=== PATIENT | female | born 1945 | race Caucasian/White ===

== ENCOUNTER 2020-06-07 11:10 | Inpatient (IN) | payer MEDICARE, SELFPAY ==
[2020-06-07] VITALS (8 sets, daily range): BP systolic 112–148; BP diastolic 52–78; PULSE 80–92; RESP 14–18; TEMP 36.4–36.9; O2SAT 93–96; BMI 35.9
--- NOTE | ~2020-06-07 | MR_ITS ---
EXAMINATION: MR BRAIN WITHOUT CONTRAST CLINICAL INFORMATION: Acute stroke. Left-sided tingling. COMPARISON: CTA head and neck from 06/07/2020. TECHNIQUE: MRI of the brain was obtained using routine sequences without contrast. FINDINGS: Restricted diffusion associated with a small acute infarct within the right thalamus. No additional restricted diffusion. No evidence of acute or chronic hemorrhagic products on heme-sensitive imaging. Scattered periventricular, deep white matter, and brainstem T2 FLAIR hyperintensities consistent with moderate underlying microangiopathy. The ventricles are normal in morphology and size. No abnormal mass effect. No midline shift. Normal appearance of the pituitary gland. Normal positioning of the cerebellar tonsils. Normal arterial and venous vascular flow voids are present. Normal, homogeneous marrow signal. Mild mucosal thickening of the paranasal sinuses. No signal abnormalities within the mastoids. Bilateral lens extractions. MR/MR head/brain wo con IMPRESSION: 1. Small acute lacunar infarct of the right thalamus. No additional acute intracranial abnormalities. 2. Moderate underlying microangiopathy.
--- NOTE | ~2020-06-07 | CT_ITS ---
EXAMINATION: CT ANGIOGRAM NECK WITH CONTRAST CT ANGIOGRAM BRAIN WITH CONTRAST CLINICAL INFORMATION: Lesion seen on dry CT question aneurysm COMPARISON: Head CT performed earlier the same day. TECHNIQUE: Test bolus sequences followed by intravenous administration mL of . Helical imaging was performed in the axial plane from the thoracic inlet to the skull vertex. Delayed postcontrast imaging of the head was also performed. The data was processed at the diagnostic technologist workstation for generation of MIP sequences. Angled MIPs and volume rendered reformatted images were also generated at an offline 3D workstation under concurrent supervision. Stenoses are assessed in accordance with NASCET criteria unless otherwise indicated. This CT examination was performed using dose optimization techniques as appropriate, variously including the following: *Automated exposure control *Adjustment of mA and/or kV according to patient size (this includes techniques or standardized protocols for targeted exams where dose is matched to indication/reason for exam; i.e. extremities or head) *Use of iterative reconstruction technique FINDINGS: BRAIN: There is a small lacunar infarct of indeterminate age within the lateral right thalamus. In light of the patient's symptoms, consider MRI to exclude an acute infarct. The previously seen small focus of increased density located just above a parafalcine lipoma most likely reflects a small focus of calcification. There is no aneurysm in this location on CTA. [There is no intracranial hemorrhage, hydrocephalus, extra-axial surface collection, midline shift, or other herniation pattern. The basilar cisterns are preserved. No significant soft tissue abnormality. No acute osseous abnormality. The paranasal sinuses and the mastoid air cells are well aerated.] CERVICAL SOFT TISSUES AND LUNG APICES: There is multilevel cervical spondylosis. No significant soft tissue findings within the neck. The imaged upper lungs are clear. NECK CTA: [There is a classic 3 vessel configuration of the aortic arch. Proximal arch vessels are non-stenotic. Right vertebral artery is dominant. Atherosclerotic disease results in a moderate stenosis of the left vertebral artery origin. Cervical vertebral arteries are otherwise widely patent throughout their course. No significant ostial stenosis is visualized on either side. Both vertebral arteries are widely patent throughout their extracranial cervical course. Both common carotid arteries are normal in course and caliber.] There is atherosclerotic calcification involving the carotid bifurcations bilaterally resulting in less than 50% stenoses. 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 An intraluminal filling defect is felt to be less likely. No focal flow-limiting stenosis nor discrete proximal large artery occlusion. No aneurysm. Timing of the contrast bolus allows assessment of the major dural venous sinuses, which all opacify normally] CT/CT angio head neck IMPRESSION: - There is a small lacunar infarct of indeterminate age within the lateral right thalamus that could be acute to subacute. In light of the patient's symptoms, consider MRI to exclude an acute infarct. 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 An intraluminal filling defect is felt to be less likely. 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 - The previously seen small focus of increased density located just above a parafalcine lipoma most likely reflects a small focus of calcification. There is no aneurysm in this location on CTA. Findings discussed with Vonnie Jenkins at 3:36 PM on 06/07/2020.
--- NOTE | ~2020-06-07 | CT_ITS ---
EXAMINATION: CT HEAD WITHOUT CONTRAST CLINICAL INFORMATION: Left common and left leg tingling x1 consent for CVA COMPARISON: None TECHNIQUE: Contiguous axial imaging was performed from the skull base to vertex without intravenous administration of contrast. This CT examination was performed using dose optimization techniques as appropriate, variously including the following: *Automated exposure control *Adjustment of mA and/or kV according to patient size (this includes techniques or standardized protocols for targeted exams where dose is matched to indication/reason for exam; i.e. extremities or head) *Use of iterative reconstruction technique DLP: 707 mGy-cm FINDINGS: There is no evidence of acute intracranial hemorrhage or territorial infarction. No abnormal mass effect or midline shift is seen. Dejesus to white matter differentiation is well preserved. No extra-axial fluid collections are identified. There is small hyperdense round lesion in the interhemispheric fissure measuring 0.7 x 0.5 cm with hypoechoic area just inferior to it question fat, axial image 11/3.. Similar hypoechoic areas seen along the higher interhemispheric fissure, axial image 8/3 likely fat as well. The ventricles are normal in size. There is no abnormal attenuation within the brain parenchyma. The osseous structures and soft tissues are normal. The mastoid air cells and visualized portions of the paranasal sinuses are well aerated. CT/CT head/brain wo con IMPRESSION: No acute intracranial process seen. There is small hyperechoic round lesion along the interhemispheric fissure with underlying fatty tissue. Differential diagnoses includes small aneurysm with underlying lipoma. Further evaluation with CTA brain can be performed.
--- NOTE | 2020-06-07 12:02 | ECG_ITS ---
Test Reason : WEAKNESS Blood Pressure : / mmHG Vent. Rate : 087 BPM Atrial Rate : 087 BPM P-R Int : 168 ms QRS Dur : 088 ms QT Int : 366 ms P-R-T Axes : 010 -24 031 degrees QTc Int : 440 ms Sinus rhythm with occasional Premature ventricular complexes Anteroseptal infarct (cited on or before 02-APR-2007) Abnormal ECG When compared with ECG of 02-APR-2007 09:35, Premature ventricular complexes are now Present Referred By: Vonnie Jenkins Electronically Signed By:Addison Royal
[2020-06-07 12:46] LABS: MANUAL DIFF FLAG NO
[2020-06-07 12:50] LABS: Basophils Percent Auto 0.2 % (0-2); Eosinophils Absolute Auto 0.3 X10*3/uL (0.0-0.4); Eosinophils Percent Auto 1.6 % (0-4); Hemoglobin 15.4 g/dl (12.0-16.0); Imm Gran Pct Auto 0.6 % (0.0-0.4); Lymphocytes Absolute Auto 3.9 X10*3/uL (1.2-4.9); Lymphocytes Percent Auto 23.8 % (20-40); Mean Corpuscular HGB Conc 32.8 g/dl (31.0-35.0); Mean Corpuscular Volume 91.4 fL (80-98); Monocytes Absolute Auto 0.9 X10*3/uL (0.1-1.2); Monocytes Percent Auto 5.5 % (2-11); Neutrophils Absolute Auto 11.2 X10*3/uL (2.0-8.3); Neutrophils Percent Auto 68.3 % (45-73); Platelet Count 253 X10*3/uL (160-400); Red Blood Count 5.14 X10*6/uL (4.20-5.50); Red Cell Distribution Width 14.3 % (11.0-16.0); White Blood Count 16.5 X10*3/uL (4.8-10.8)
--- NOTE | 2020-06-07 12:53 | ED.GENADULT ---
HPI - General Adult General Chief complaint: General Medical Stated complaint: stroke like symptoms Time Seen by Provider: 06/07/20 12:02 Source: patient Mode of arrival: ambulatory Limitations: no limitations History of Present Illness HPI narrative: 74 y/o female with history of DM with neuropathy, HTN, HLD, depression and gout who presents to the ED with acute onset of tingling sensation on the left side of her body that started when she woke up yesterday morning. She initially thought she slept awkwardly but the tingling persisted throughout the day. She reports it was in her entire left arm, entire left leg all the way to her foot as well as her lips. She also reported some fatigue and minor weakness on the left side. She was using her cane to walk because she didnt feel steady on her feet. She went back to bed and slept most of the day yesterday. She denies any difficulty speaking or noticeable facial droop. This morning the tingling in now only in her left arm and hand. She saw her PCP who gave her aspirin and told her to come to the ER for evaluation of possible stroke. She denies history of CVA or blood clots. No history of atrial fibrillation. She is an active smoker, <1ppd. She does not check her sugars; she is on metformin and glipizide. MD complaint: tingling Onset (ago): hour(s) (30) Location: face, left, upper extremity and lower extremity Radiation: distal Severity: moderate Quality: other (tingling) Relieving factors: none Exacerbating factors: none Associated symptoms: weakness (mild, left side, now resolved.) Treatments prior to arrival: aspirin Related Data Home Medications Medication Instructions Recorded Confirmed allopurinol 1 tab PO DAILY 06/07/20 06/07/20 amlodipine 1 tab PO DAILY 06/07/20 06/07/20 duloxetine 1 cap PO DAILY 06/07/20 06/07/20 gabapentin 1 cap PO TID 06/07/20 06/07/20 glimepiride 1 tab PO QAM 06/07/20 06/07/20 hydrochlorothiazide 1 tab PO DAILY 06/07/20 06/07/20 metformin 1 tab PO BID 06/07/20 06/07/20 omeprazole 1 cap PO DAILY 06/07/20 06/07/20 simvastatin 1 tab PO BEDTIME 06/07/20 06/07/20 tramadol 1 tab PO BID PRN 06/07/20 06/07/20 Allergies Allergy/AdvReac Type Severity Reaction Status Date / Time Sulfa (Sulfonamide Allergy Unknown HIVES Unverified 11/04/19 15:17 Antibiotics) [SULFA (SULFONAMIDE ANTIBIOTICS)] Review of Systems Review of Systems: Constitutional: No Fever, No Chills, +fatigue (chronic) ENT/Mouth: No sore throat, No Rhinorrhea, No Swallowing Difficulty Eyes: No Eye Pain, No Swelling, No Redness Cardiovascular: No Chest Pain, No SOB, No Orthopnea, No Edema Respiratory: No Cough, No Sputum, No Wheezing, No dyspnea Gastrointestinal: No Nausea, No Vomiting, + Diarrhea (4x yesterday), No abdominal Pain Genitourinary: No Dysuria, No Urinary Frequency, No Hematuria Musculoskeletal: No joint pain, No Myalgias Skin: No Skin Lesions, No rash Neuro: + Weakness, No Numbness, No Dizziness, No Headache Psych: No Anxiety/Panic, No Depression Heme/Lymph: No Bruising, No Lymphadenopathy Endocrine: No Polyuria, No Polydipsia Neurologic: Reports Abnormal speech present [facility] Past Medical History Attestation statement: The following information was validated with the patient. Medical History Diabetes Fibromyalgia GERD (gastroesophageal reflux disease) Gout HTN (hypertension) Kidney stones Obesity Peripheral neuropathy Surgical History History of cholecystectomy Social History Social History Smoking Status: Current every day smoker Use of substances other than those prescribed or required for medical reasons: Yes Substance Use Type: Marijuana Advance Directives: Yes Advance Directives Information Provided: Yes Advance Directives on File: No Physical Exam Vital Signs: Vital Signs: Last Vital Signs Temp 98.2 F 06/07/20 15:23 Pulse 90 06/07/20 15:23 Resp 18 06/07/20 15:23 BP 131/72 06/07/20 15:23 Pulse Ox 93 06/07/20 15:23 Body Mass Index 35.9 Const: General: cooperative, comfortable, no acute distress and well developed Nutritional Appearance: obese centrally obese Orientation/consciousness: patient oriented x3 Limitations: no limitations HENMT: Head: Yes normal to inspection, Yes normocephalic and Yes atraumatic Ears: hearing grossly normal bilaterally General nose exam: Normal external nose present Face and sinus: Yes normal facial exam, Yes face symmetric and No Flattened naso-labial fold present Mouth: Normal oral and palatal mucosa present, lip normal and tongue normal Teeth and gingiva: dentition normal and gingiva normal Throat: Yes posterior oropharynx normal Eyes: General: appearance normal, both eyes and all related structures Neck: Neck: Yes normal visual inspection, Yes no lymphadenopathy, Yes trachea midline and Yes supple Chest: Chest palpation & inspection: normal inspection of the chest and normal palpation of entire chest wall Resp: Effort & Inspection: normal respiratory effort and able to speak in complete sentences Auscultation: clear to auscultation bilaterally Cardio: Jugular venous distension: no JVD Rate: regular rate Rhythm: regular rhythm Heart sounds: S1 normal heart sound present and S2 normal heart sound present GI: Inspection: Yes obesity Palpation (GI): Soft to palpation, nontender and no guarding Auscultation: normal bowel sounds Skin: General skin exam: no rashes or lesions noted Neuro: General: patient oriented x3 Cranial nerves: Yes CN's II-XII intact bilaterally Cognition (Neuro): normal cognition Speech: Abnormal speech present Motor exam (neuro): 5/5 motor strength present throughout, Pronator motor function not present and Normal motor muscle tone present throughout Sensory Exam: Normal double simultaneous stimulation for sensation Psych: Appearance: grossly normal Mental Status: mental status grossly normal Speech and movement: Normal speech and movement present Course Course Course Narrative: 74 y/o female with multiple comorbidites including DM, HTN, HLD, obesity and active smoker who presents with 30+ hours of left sided tingling. Exam is non-focal with NIH 0 on arrival. She has nondebilitating symptoms and is out of any treatment window for tPA. Concern for evolving CVA vs possible electrolyte derrangements given diarrhea episodes yesterday. Will proceed with CT head, EKG, lab workup. Will likely require admission. Reevaluation(s) Reevaluation #1: CT head showing small hyperechoic round lesion along the interhemispheric fissure with underlying fatty tissue. Differential diagnoses includes small aneurysm with underlying lipoma. Further evaluation with CTA brain can be performed. CTA ordered. D/W Dr. Elmogy. Labs showing hypomagnesemia and hypokalemia, likely from diarrhea. Can cause paresthesias however not only on one side of the body. Will replete and reassess. Primary concern is still for CVA. No afib noted on the monitor so far. WBC elevated 16K. Paperwork from [employer] indicating she has a chronic elevation of WBC, unknown baseline. She has not gotten this worked up. No signs or symptoms of infection. Patient is not septic at this time. Reevaluation #2: Received critical result from [facility] - CTA showing acute lacunar infarct in the right thalamus which can explain her symptoms. Will get patient admitted for further workup. Dr. Napoles requesting MRI order now and will admit. Patient aware of results and plan. Medical Decision Making Lab Data Result diagrams: 06/07/20 12:40 06/07/20 12:40 Labs: Lab Results 06/07/20 06/07/20 06/07/20 Range/Units 12:40 12:40 12:40 WBC 16.5 H (4.8-10.8) X10*3/uL RBC 5.14 (4.20-5.50) X10*6/uL Hgb 15.4 (12.0-16.0) g/dl Hct 47.0 (37-47) % MCV 91.4 (80-98) fL MCH 30.0 (27.0-33.0) pg MCHC 32.8 (31.0-35.0) g/dl RDW 14.3 (11.0-16.0) % Plt Count 253 (160-400) X10*3/uL MPV 10.0 (9.4-12.3) fL Immature Gran % (Auto) 0.6 H (0.0-0.4) % Neut % (Auto) 68.3 (45-73) % Lymph % (Auto) 23.8 (20-40) % Wilkin % (Auto) 5.5 (2-11) % Eos % (Auto) 1.6 (0-4) % Baso % (Auto) 0.2 (0-2) % Lymph # (Auto) 3.9 (1.2-4.9) X10*3/uL Wilkin # (Auto) 0.9 (0.1-1.2) X10*3/uL Eos # (Auto) 0.3 (0.0-0.4) X10*3/uL Baso # (Auto) 0.0 (0.0-0.2) X10*3/uL Abs Immat Gran (auto) 0.10 H (0.00-0.03) X10*3/uL Absolute Neuts (auto) 11.2 H (2.0-8.3) X10*3/uL Absolute Nucleated RBC 0.000 (0.0-0.012) X10*3/uL Nucleated RBC % (auto) 0.0 (0.0-0.2) /100WBC PT 11.9 (10.8-13.0) SEC INR 1.0 (0.9-1.1) APTT 41.4 H (24.1-38.0) SEC Hold Blue Top SEE NOTE Sodium 139 (135-145) mmol/L Potassium 3.0 L (3.3-5.1) mmol/L Chloride 97 (96-108) mmol/L Carbon Dioxide 26 (22-29) mmol/L Anion Gap 19 (12-20) BUN 23 H (9-16) mg/dL Creatinine 1.26 (0.5-1.4) mg/dL Estim Creat Clear Calc 46.8 Estimated GFR 42 Random Glucose 115 (60-115) mg/dL Calcium 9.4 (8.4-10.2) mg/dL Magnesium 1.3 L* (1.6-2.6) mg/dL Total Bilirubin 0.7 (0.0-1.0) mg/dL Direct Bilirubin 0.2 (0.0-0.5) mg/dL AST 24 (5-31) U/L ALT 8 (0-31) U/L Alkaline Phosphatase 66 (39-117) U/L Total Protein 7.2 (6.5-8.0) g/dL Albumin 4.3 (3.5-5.0) g/dL COVID-19 (PRASHANTH) (Negative) COVID-19 Clin Com 06/07/20 Range/Units 12:40 WBC (4.8-10.8) X10*3/uL RBC (4.20-5.50) X10*6/uL Hgb (12.0-16.0) g/dl Hct (37-47) % MCV (80-98) fL MCH (27.0-33.0) pg MCHC (31.0-35.0) g/dl RDW (11.0-16.0) % Plt Count (160-400) X10*3/uL MPV (9.4-12.3) fL Immature Gran % (Auto) (0.0-0.4) % Neut % (Auto) (45-73) % Lymph % (Auto) (20-40) % Wilkin % (Auto) (2-11) % Eos % (Auto) (0-4) % Baso % (Auto) (0-2) % Lymph # (Auto) (1.2-4.9) X10*3/uL Wilkin # (Auto) (0.1-1.2) X10*3/uL Eos # (Auto) (0.0-0.4) X10*3/uL Baso # (Auto) (0.0-0.2) X10*3/uL Abs Immat Gran (auto) (0.00-0.03) X10*3/uL Absolute Neuts (auto) (2.0-8.3) X10*3/uL Absolute Nucleated RBC (0.0-0.012) X10*3/uL Nucleated RBC % (auto) (0.0-0.2) /100WBC PT (10.8-13.0) SEC INR (0.9-1.1) APTT (24.1-38.0) SEC Hold Blue Top Sodium (135-145) mmol/L Potassium (3.3-5.1) mmol/L Chloride (96-108) mmol/L Carbon Dioxide (22-29) mmol/L Anion Gap (12-20) BUN (9-16) mg/dL Creatinine (0.5-1.4) mg/dL Estim Creat Clear Calc Estimated GFR Random Glucose (60-115) mg/dL Calcium (8.4-10.2) mg/dL Magnesium (1.6-2.6) mg/dL Total Bilirubin (0.0-1.0) mg/dL Direct Bilirubin (0.0-0.5) mg/dL AST (5-31) U/L ALT (0-31) U/L Alkaline Phosphatase (39-117) U/L Total Protein (6.5-8.0) g/dL Albumin (3.5-5.0) g/dL COVID-19 (PRASHANTH) Negative (Negative) COVID-19 Clin Com See Note ECG Data Attestation: I personally reviewed and interpreted this ECG as follows: Interpretation: normal sinus rhythm with occasional PVC's, HR 87 bpm, no ST segment elevations or depressions, normal PT interval, normal QTc Critical Care Time Critical Care Time Critical Care Time: Yes Total Critical Care Time: 40 Attestation: I attest to critical care time spent caring for this patient. Discharge Plan Discharge Clinical Impression: Acute lacunar infarction, Hypomagnesemia, Acute hypokalemia Patient Disposition: Admitted As Inpatient
[2020-06-07 13:04] LABS: COVID-19 Test Negative (Negative)
[2020-06-07 13:14] LABS: Prothrombin Time 11.9 SEC (10.8-13.0)
[2020-06-07 13:18] LABS: Partial Thromboplastin Time 41.4 SEC (24.1-38.0)
[2020-06-07 13:20] LABS: Alanine Aminotransferase 8 U/L (0-31); Albumin Level 4.3 g/dL (3.5-5.0); Alkaline Phosphatase 66 U/L (39-117); Anion Gap 19 (12-20); Aspartate Amino Transferase 24 U/L (5-31); Bilirubin Direct 0.2 mg/dL (0.0-0.5); Bilirubin Total 0.7 mg/dL (0.0-1.0); Blood Urea Nitrogen 23 mg/dL (9-16); Calcium 9.4 mg/dL (8.4-10.2); Carbon Dioxide 26 mmol/L (22-29); Chloride 97 mmol/L (96-108); Creatinine Clr Calc Pharmacy 46.8; Estimated Glomerular Filt Rate 42; Glucose Random 115 mg/dL (60-115); Magnesium 1.3 mg/dL (1.6-2.6); Sodium 139 mmol/L (135-145); Total Protein 7.2 g/dL (6.5-8.0)
[2020-06-07] MEDS: Potassium Chloride ER 20 MEQ TAB.ER.PRT 40 MEQ PO (13:33)
[2020-06-07] MEDS: iohexoL 350 MG/ML 100 ML INFUS..BTL IV (13:53)
[2020-06-07] MEDS: Magnesium Sulfate/H2O 2 GM/50 ML PIGGYBACK IV (14:32)
--- NOTE | 2020-06-07 17:08 | PM.IMHP ---
History of Present Illness Date of Service: 06/07/20 Chief Complaint: Left arm and leg weakness 74-year-old woman presenting to the ER with weakness in the left arm and leg. She reports that yesterday morning she woke up and from the top of her shoulder to her left foot felt heavy, numb and weak. She reported that she had no other symptoms. She denied chest pain, shortness of breath, nausea, vomiting, diarrhea, visual changes, headache, slurred speech. She denies history of stroke in the past. Although she does have a history of diabetes, hypertension, obesity. head CTA showed small lacunar infarct appearing as acute versus subacute. MRI pending. Her vital signs are stable , labs show leukocytosis of 16.5 with no signs of infection. Potassium 3.0, magnesium 1.3, COVID-19 negative. She reported that her primary care provider who she saw today keep her to aspirin. In the ER she also received IV magnesium, oral potassium. She will be admitted for further management and treatment of acute stroke. Review of Systems Review of Systems: Denies any recent fever chills or decrease in appetite respiratory denies any shortness of breath coverage production cardiovascular is adjustment of any PND or edema gastrointestinal denies any dysphagia abdominal pain nausea vomiting or diarrhea genitourinary denies any dysuria frequency or hematuria musculoskeletal denies any joint pain or swelling neuropsych see HPI all other systems reviewed are negative [facility] Medical History Diabetes Fibromyalgia GERD (gastroesophageal reflux disease) Gout HTN (hypertension) Kidney stones Obesity Peripheral neuropathy Family History (Updated 06/07/20 @ 17:39 by Karley Durand NP) Maternal Grandmother No problems noted. Pertinent family history: grandmother on maternal side with stroke Surgical History History of cholecystectomy Social History Smoking Status: Current every day smoker Use of substances other than those prescribed or required for medical reasons: Yes Substance Use Type: Marijuana Advance Directives: Yes Advance Directives Information Provided: Yes Advance Directives on File: No Meds Allergies Allergy/AdvReac Type Severity Reaction Status Date / Time Sulfa (Sulfonamide Allergy Unknown HIVES Unverified 11/04/19 15:17 Antibiotics) [SULFA (SULFONAMIDE ANTIBIOTICS)] Active Medications: Current Medications Generic Name Dose Route Start Last Admin Trade Name Graemeq PRN Reason Stop Dose Admin Pharmacy Consult 1 each 06/07/20 12:02 Consult Rx Perform Med Rec MISCELLANE ONCE PRN Consult order Home Medications Medication Instructions Recorded Confirmed Last Taken Type allopurinol 1 tab PO DAILY 06/07/20 06/07/20 Unknown History amlodipine 1 tab PO DAILY 06/07/20 06/07/20 Unknown History duloxetine 1 cap PO DAILY 06/07/20 06/07/20 Unknown History gabapentin 1 cap PO TID 06/07/20 06/07/20 Unknown History glimepiride 1 tab PO QAM 06/07/20 06/07/20 Unknown History hydrochlorothiazide 1 tab PO DAILY 06/07/20 06/07/20 Unknown History metformin 1 tab PO BID 06/07/20 06/07/20 Unknown History omeprazole 1 cap PO DAILY 06/07/20 06/07/20 Unknown History simvastatin 1 tab PO BEDTIME 06/07/20 06/07/20 Unknown History tramadol 1 tab PO BID PRN 06/07/20 06/07/20 Unknown History Physical Exam Vital Signs and Narrative: Vital Signs: Last Vital Signs Temp 98.2 F 06/07/20 16:55 Pulse 88 06/07/20 16:55 Resp 14 06/07/20 16:55 BP 148/76 H 06/07/20 16:55 Pulse Ox 96 06/07/20 16:55 Body Mass Index 35.9 Appearing in no acute distress head is normocephalic atraumatic eyes pupils are PERRLA sclera is anicteric mouth throat mucous membranes are intact and moist neck is supple no lymphadenopathy, no JVD noted lung sounds are clear to auscultation heart regular rate rhythm, clear S1, S2 positive bowel sounds, abdomen is soft, nontender neuro patient is alert x3, no focal deficits Results Labs CBC and Chem 7: 06/07/20 12:40 06/07/20 12:40 Labs: Laboratory Results - last 24 hr 06/07/20 06/07/20 06/07/20 12:40 12:40 12:40 MCV 91.4 MCH 30.0 MCHC 32.8 RDW 14.3 Plt Count 253 MPV 10.0 Immature Gran % (Auto) 0.6 H Neut % (Auto) 68.3 Lymph % (Auto) 23.8 Foster % (Auto) 5.5 Eos % (Auto) 1.6 Baso % (Auto) 0.2 Lymph # (Auto) 3.9 Foster # (Auto) 0.9 Eos # (Auto) 0.3 Baso # (Auto) 0.0 Abs Immat Gran (auto) 0.10 H Absolute Neuts (auto) 11.2 H Absolute Nucleated RBC 0.000 Nucleated RBC % (auto) 0.0 PT 11.9 INR 1.0 APTT 41.4 H Hold Blue Top SEE NOTE Anion Gap 19 Estim Creat Clear Calc 46.8 Estimated GFR 42 Random Glucose 115 Calcium 9.4 Magnesium 1.3 L* Total Bilirubin 0.7 Direct Bilirubin 0.2 AST 24 ALT 8 Alkaline Phosphatase 66 Total Protein 7.2 Albumin 4.3 COVID-19 (PRASHANTH) COVID-19 Clin Com 06/07/20 12:40 MCV MCH MCHC RDW Plt Count MPV Immature Gran % (Auto) Neut % (Auto) Lymph % (Auto) Foster % (Auto) Eos % (Auto) Baso % (Auto) Lymph # (Auto) Foster # (Auto) Eos # (Auto) Baso # (Auto) Abs Immat Gran (auto) Absolute Neuts (auto) Absolute Nucleated RBC Nucleated RBC % (auto) PT INR APTT Hold Blue Top Anion Gap Estim Creat Clear Calc Estimated GFR Random Glucose Calcium Magnesium Total Bilirubin Direct Bilirubin AST ALT Alkaline Phosphatase Total Protein Albumin COVID-19 (PRASHANTH) Negative COVID-19 Clin Com See Note Imaging Radiologist's Impressions: Impressions Head CT 06/07/20 12:02 IMPRESSION: No acute intracranial process seen. There is small hyperechoic round lesion along the interhemispheric fissure with underlying fatty tissue. Differential diagnoses includes small aneurysm with underlying lipoma. Further evaluation with CTA brain can be performed. Head/Neck CTA 06/07/20 12:51 IMPRESSION: - There is a small lacunar infarct of indeterminate age within the lateral right thalamus that could be acute to subacute. In light of the patient's symptoms, consider MRI to exclude an acute infarct. 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 An intraluminal filling defect is felt to be less likely. 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 - The previously seen small focus of increased density located just above a parafalcine lipoma most likely reflects a small focus of calcification. There is no aneurysm in this location on CTA. Findings discussed with Vonnie Jenkins at 3:36 PM on 06/07/2020. Assessment and Plan (1) Acute lacunar infarction: Status: Acute 74-year-old woman admitted with acute stroke with symptoms that started yesterday morning that included numbness, heaviness and weakness to her left arm down to her left thigh. Most symptoms have resolved but she still feels tingling in the left arm. Stroke. Lacunar infarct, acute. Symptoms resolving MRI and head CTA done Echocardiogram with bubble study Aspirin, statin PT/OT Neurology consultation Hypokalemia. Repleted in the ER Trend Hypomagnesemia. Repleted in the ER Trend Hypertension. Stable blood pressure. Allow permissive hypertension Hold amlodipine, hydrochlorothiazide GERD Continue PPI Fibromyalgia. Chronic pain. Continue tramadol, gabapentin DVT prophylaxis with heparin Attending: Dr. Kerr
--- NOTE | 2020-06-07 18:12 | P.EN_ITS ---
Event Note Date of Service: 06/07/20 Event Note: admission note the patient was seen and evaluated with Karley Durand NP. I agree with her note, assessment and plan with the following. In summary, 74 years old lady with PMH of diabetes, HTN, HLD, neuropathy presents to the hospital with reported 1 day history of left-sided tingling sensation. The patient reported that she woke up yesterday morning feeling tingling on the left side her body without any weakness, double vision, instability or headache. She noticed tingling hold on left side of her face, upper and lower extremities but seems to be improving during the day. This morning the tingling was mainly in the left upper extremity and part of the face. She saw her PCP who sent her to the emergency for evaluation of stroke. CT, CTA and MRI were done in the emergency confirming the finding of in you right-sided thalamus stroke. Acute stroke To check echo in the morning Start baby aspirin Atorvastatin of 80 mg To get Neurology evaluation PT, OT eval Stroke education Rest of evaluations by [employer] note.
--- NOTE | 2020-06-07 20:19 | MHC.STROKE ---
Addendum entered by Kelly Erwin RN 06/08/20 12:43: CONFIRMED LAST KNOWN WELL 06/05/20 AT 2230 WHEN SHE WENT TO BED, DISCOVERY OF SYMPTOMS 06/06/20 AT 0830 WOKE WITH SYMPTOMS. Addendum entered by Kelly Erwin RN 06/08/20 11:51: I MET WITH THE PATIENT AND HER TO DISCUSS HER DIAGNOSIS AND PROVIDE STROKE EDUCATION. WE REVIEWED HER MULTIPLE RISK FACTORS INCLUDING SMOKING (SHE HAS SMOKED SINCE SHE WAS 15 AND LIKES IT), SHE SAID SHE CAN QUIT WITHOUT PROBLEMS. SMOKING CESSATION EDUCATION PROVIDED. WE REVIEWED HER LDL OF 114, DM, I GAVE HER A COPY OF THE SCREENSHOT OF THE STROKE ON THE MRI AND DISCUSSED THE LOCATION AND CORRELATING SYMPTOMS. SHE IS COMPLIANT WITH HER MEDICATIONS. I REVIEWED THE STROKE EDUCATION BOOKLET, POWER POINT SLIDES AND ANSWERED ALL OF HER QUESTIONS. SHE IS STILL C/O LEFT HANDED NUMBNESS, NIHSS = 1. I WILL REVIEW DR. MANTILLA'S RECOMMENDATIONS AND DISCUSS THEM WITH HER. SHE IS EXCLUDED FROM VTE PROPHYLAXIS DUE TO THE FACT THAT SHE IS ABLE TO AMBULATE FREELY. I WILL CONTINUE TO FOLLOW. U Original Note: 1110 WALK IN WITH LEFT SIDED NUMBNESS, LAST KNOWN WELL 06/05/20 AT 2230, DISCOVERED SYMPTOMS 06/06/20 UPON WAKING. SHE DID NOT COME TO THE ED UNTIL TODAY 06/07/20. CT HEAD, CTA H/N DONE, NO LVO. MRI CONFIRMED + ISCHEMIC STROKE. PASSED SWALLOW SCREEN AT 1330. I WILL FOLLOW UP WITH THE PATIENT TOMORROW AND PROVIDE STROKE EDUCATION. CONSULT TO RESPIRATORY FOR SMOKING CESSATION NEEDED, AND VTE PROPHYLAXIS. NEUROLOGY CONSULT PENDING.
[2020-06-07 20:22] LABS: Glucose, Whole Blood 180 mg/dL (60-115)
[2020-06-07] MEDS: Atorvastatin Calcium 40 MG TABLET PO (22:12)
[2020-06-07] MEDS: Gabapentin 300 MG CAPSULE PO (22:12)
[2020-06-07] MEDS: Insulin Lispro 100 UNIT/ML 3 ML VIAL SUBCUT (22:12)
--- NOTE | 2020-06-07 23:31 | PC.NURSE ---
Pt arrived to unit, orientated to room and call lares system. Pt a&ox4, VSS, denies c/o pain. Neuros intact, reports neuropathy in bi lat LE at baseline, reporting tingling in LUE. +BS, LBM 06/07/20, voiding in bathroom. LS dim on RA. Pt educated on stroke s/s. Swallow eval passed. pt resting in bed at this time, see flow sheet for assessment.
[2020-06-07] MEDS: traMADoL HCL 50 MG TABLET PO (23:35)
[2020-06-08 03:25] VITALS: BP 117/59; PULSE 85; RESP 18; TEMP 36.7; O2SAT 95
[2020-06-08] MEDS: Omeprazole 20 MG CAPSULE.DR PO (05:42)
[2020-06-08 06:23] LABS: MANUAL DIFF FLAG NO
[2020-06-08 06:31] LABS: Basophils Percent Auto 0.3 % (0-2); Eosinophils Absolute Auto 0.3 X10*3/uL (0.0-0.4); Eosinophils Percent Auto 2.2 % (0-4); Hematocrit 44.2 % (37-47); Hemoglobin 14.2 g/dl (12.0-16.0); Imm Gran Abs Auto 0.07 X10*3/uL (0.00-0.03); Imm Gran Pct Auto 0.5 % (0.0-0.4); Lymphocytes Absolute Auto 3.4 X10*3/uL (1.2-4.9); Lymphocytes Percent Auto 25.9 % (20-40); Mean Corpuscular HGB Conc 32.1 g/dl (31.0-35.0); Mean Corpuscular Hemoglobin 29.5 pg (27.0-33.0); Mean Corpuscular Volume 91.9 fL (80-98); Mean Platelet Volume 10.4 fL (9.4-12.3); Monocytes Absolute Auto 0.8 X10*3/uL (0.1-1.2); Monocytes Percent Auto 6.4 % (2-11); Neutrophils Absolute Auto 8.5 X10*3/uL (2.0-8.3); Neutrophils Percent Auto 64.7 % (45-73); Platelet Count 223 X10*3/uL (160-400); Red Blood Count 4.81 X10*6/uL (4.20-5.50); Red Cell Distribution Width 14.1 % (11.0-16.0); White Blood Count 13.1 X10*3/uL (4.8-10.8)
[2020-06-08 06:53] LABS: Magnesium 1.7 mg/dL (1.6-2.6)
[2020-06-08 06:56] LABS: Anion Gap 15 (12-20); Blood Urea Nitrogen 20 mg/dL (9-16); Calcium 9.2 mg/dL (8.4-10.2); Carbon Dioxide 34 mmol/L (22-29); Chloride 97 mmol/L (96-108); Cholesterol 187 mg/dL; Estimated Glomerular Filt Rate 41; Glucose Random 107 mg/dL (60-115); HDL Cholesterol 43 mg/dL; LDL Cholesterol Calculated 114 mg/dl; Potassium 3.4 mmol/L (3.3-5.1); Sodium 143 mmol/L (135-145); Triglycerides 153 mg/dL
[2020-06-08 07:20] VITALS: BP 123/74; PULSE 85; RESP 18; TEMP 36.2; O2SAT 92
[2020-06-08 07:40] LABS: Glucose, Whole Blood 131 mg/dL (60-115)
[2020-06-08] MEDS: DULoxetine HCl 30 MG CAPSULE.DR PO (08:07)
[2020-06-08] MEDS: Gabapentin 300 MG CAPSULE PO ×2 (08:07→21:38)
[2020-06-08] MEDS: allopurinoL 300 MG TABLET PO (08:07)
[2020-06-08] MEDS: Aspirin Enteric Coated 81 MG TABLET.DR PO (08:07)
--- NOTE | 2020-06-08 10:03 | MHC.CM.PN ---
CM met with Patient and her at bedside and addressed IMM with her (original to Patient/copy on the chart). Patient lives in an in-law apartment, with her , on the first floor, with her Daughter,Son-in-LAW and Grandchildren living upstairs.Patient's goal is to return home/no services and CM has initiated and will follow for dc planning.PCP is DR. Lashon Trammell.Patient's Daughter/HCP/Mariam Carlosx can be reached at [phone].
[2020-06-08 11:20] VITALS: BP 131/78; PULSE 93; RESP 19; TEMP 36.5; O2SAT 92
[2020-06-08 11:39] LABS: Glucose, Whole Blood 218 mg/dL (60-115)
--- NOTE | 2020-06-08 12:01 | PM.NEUROCN ---
History of Present Illness Data of Consult Service Date: 06/08/20 Primary Care Provider: Lashon Trammell NP 74 years old woman with underlying history of hypertension and smoking who came to hospital with at least 1 day history of left-sided numbness. She woke up with her left side of the body being numb but not particularly weak. This did not improve and she came to hospital. She came too late for any potential treatment for acute stroke. There was no associated dizziness lightheadedness headache or any visual or speech symptoms. She still had some numbness when I saw her. Review of Systems Review of Systems: No recent cardiac symptom or cold or flu-like symptoms. [facility] Past Medical History Medical History Diabetes Fibromyalgia GERD (gastroesophageal reflux disease) Gout HTN (hypertension) Kidney stones Obesity Peripheral neuropathy Family History Family History (Updated 06/07/20 @ 17:39 by Karley Durand NP) Maternal Grandmother No problems noted. Surgical History Surgical History History of cholecystectomy Social History Social History Household Members: Spouse Housing: House Do you presently have visiting nurse or other home services: No Smoking Status: Current every day smoker Tobacco Type: Cigarette Packs Per Day: 1 Cigarettes Per Day: 20.0 Smoked in Last 30 Days: Yes Use of substances other than those prescribed or required for medical reasons: No Substance Use Type: Marijuana Currently Displaying Signs/Symptoms of Drug Intoxication Withdrawal: No Have you been hit, kicked, punched, or otherwise hurt by someone within the past year? If so, by whom?: No Do you feel safe in your current relationship?: No Is there a partner from a previous relationship who is making you feel unsafe now?: No Are you made to feel afraid or neglected: No Advance Directives: No Advance Directives Information Provided: No Advance Directives on File: No Do you have thoughts of harming others: None Do you have a plan to hurt others: No Plan Recently lost weight without trying: No service: No Current occupational status: retired Meds Allergies Allergy/AdvReac Type Severity Reaction Status Date / Time Sulfa (Sulfonamide Allergy Unknown HIVES Unverified 11/04/19 15:17 Antibiotics) [SULFA (SULFONAMIDE ANTIBIOTICS)] Active Medications: Current Medications Generic Name Dose Route Start Last Admin Trade Name Graemeq PRN Reason Stop Dose Admin Acetaminophen 650 mg 06/07/20 17:47 Acetaminophen 325 Mg Tablet PO Q6H PRN Pain, Mild (Pain Scale 1-3) Allopurinol 300 mg 06/08/20 09:00 06/08/20 08:07 Allopurinol 300 Mg Tablet PO 300 mg DAILY [facility] Administration Aspirin 81 mg 06/08/20 09:00 06/08/20 08:07 Aspirin Enteric Coated 81 Mg Tablet. PO 81 mg DAILY [facility] Administration Atorvastatin Calcium 80 mg 06/08/20 21:00 Atorvastatin Calcium 80 Mg Tablet PO BEDTIME [facility] Duloxetine HCl 30 mg 06/08/20 09:00 06/08/20 08:07 Duloxetine Hcl 30 Mg Capsule. PO 30 mg DAILY [facility] Administration Enoxaparin Sodium 40 mg 06/08/20 11:30 Enoxaparin Sodium 40 Mg/0.4 Ml Syringe SUBCUT Q24H [facility] Gabapentin 300 mg 06/07/20 21:00 06/08/20 08:07 Gabapentin 300 Mg Capsule PO 300 mg TID [facility] Administration Insulin Human Lispro 0 unit 06/07/20 21:00 06/08/20 08:08 Insulin Lispro 100 Unit/Ml 3 Ml Vial SUBCUT Not Given QIDAS [facility] Protocol Omeprazole 20 mg 06/08/20 06:30 06/08/20 05:42 Omeprazole 20 Mg Capsule. PO 20 mg DAILY@0630 [facility] Administration Ondansetron HCl 4 mg 06/07/20 17:47 Ondansetron Hcl 4 Mg/2 Ml Vial IVPUSH Q8H PRN Nausea and Vomiting Pharmacy Consult 1 each 06/07/20 12:02 Consult Rx Perform Med Rec MISCELLANE ONCE PRN Consult order Tramadol HCl 50 mg 06/07/20 17:47 06/07/20 23:35 Tramadol Hcl 50 Mg Tablet PO 50 mg BID PRN Administration Pain Home Medications Medication Instructions Recorded Confirmed Last Taken Type allopurinol 1 tab PO DAILY 06/07/20 06/07/20 Unknown History amlodipine 1 tab PO DAILY 06/07/20 06/07/20 Unknown History duloxetine 1 cap PO DAILY 06/07/20 06/07/20 Unknown History gabapentin 1 cap PO TID 06/07/20 06/07/20 Unknown History glimepiride 1 tab PO QAM 06/07/20 06/07/20 Unknown History hydrochlorothiazide 1 tab PO DAILY 06/07/20 06/07/20 Unknown History metformin 1 tab PO BID 06/07/20 06/07/20 Unknown History omeprazole 1 cap PO DAILY 06/07/20 06/07/20 Unknown History simvastatin 1 tab PO BEDTIME 06/07/20 06/07/20 Unknown History tramadol 1 tab PO BID PRN 06/07/20 06/07/20 Unknown History Physical Exam Vital Signs: Vital Signs: Last Vital Signs Temp 97.7 F 06/08/20 11:20 Pulse 93 06/08/20 11:20 Resp 19 06/08/20 11:20 BP 131/78 06/08/20 11:20 Pulse Ox 92 06/08/20 11:20 Body Mass Index 35.9 She was alert and awake with normal spontaneity of speech fluency comprehension and affect. Pupils were equal and reactive to light and extraocular muscles were intact. Visual trinh are full to confrontation. Face was symmetrical. There was no pronator drift. There was no sensory or visual extinction. Deep tendon reflexes were trace with left extensor right flexor plantar Results Labs CBC & Chem 7: 06/08/20 05:36 06/08/20 05:36 Labs: Short CBC 06/07/20 06/08/20 Range/Units 12:40 05:36 WBC 16.5 H 13.1 H (4.8-10.8) X10*3/uL Hgb 15.4 14.2 (12.0-16.0) g/dl Hct 47.0 44.2 (37-47) % Plt Count 253 223 (160-400) X10*3/uL BMP 06/07/20 06/08/20 12:40 05:36 Sodium 139 143 Potassium 3.0 L 3.4 Chloride 97 97 Carbon Dioxide 26 34 H BUN 23 H 20 H Creatinine 1.26 1.28 Calcium 9.4 9.2 Liver Function 06/07/20 Range/Units 12:40 Total Bilirubin 0.7 (0.0-1.0) mg/dL Direct Bilirubin 0.2 (0.0-0.5) mg/dL AST 24 (5-31) U/L ALT 8 (0-31) U/L Alkaline Phosphatase 66 (39-117) U/L Albumin 4.3 (3.5-5.0) g/dL She had a noncontrast head CT, noncontrast MRI of brain and CTA of brain and neck. Imaging revealed an acute area of restricted diffusion small and right lateral thalamic region. Chronic microvascular ischemic changes were also noted including some in brainstem. EKG revealed sinus rhythm. CTA did not reveal any significant large vessel disease. Assessment and Plan (1) Acute lacunar infarction: Problem details: 74 years old woman with an acute right lateral thalamic infarct resulting in left hemibody numbness. She also had underlying chronic microvascular ischemic changes. Mainstay of management is patient education to eliminate risk factors including smoking or alcohol use. Treatment gallego, she should have a regular regimen of anti-platelet agent, statin and blood pressure control. Otherwise no further testing was needed at this time. Status: Acute
[2020-06-08] MEDS: Insulin Lispro 100 UNIT/ML 3 ML VIAL SUBCUT ×2 (12:20→21:40)
[2020-06-08] MEDS: Enoxaparin Sodium 40 MG/0.4 ML SYRINGE SUBCUT (12:47)
[2020-06-08 15:28] VITALS: BP 119/57; PULSE 89; RESP 18; TEMP 36.9; O2SAT 91
--- NOTE | 2020-06-08 15:41 | HO.PM.IMPN ---
Subjective Subjective Date of Service: 06/08/20 Interval History: the patient was seen and evaluated this morning Laying in bed, feels comfortable but still complaining of left upper extremity and lower extremity numbness Denies any fever, chills or shortness of breath No reported other overnight events. Systemic review: No fever, chills or weakness No chest pain, palpitation No shortness of breath or coughing No abdominal pain, nausea or vomiting No urinary symptoms No any rash or wounds Physical Exam Vital Signs: Vital Signs: Last Vital Signs Temp 98.5 F 06/08/20 15:28 Pulse 89 06/08/20 15:28 Resp 18 06/08/20 15:28 BP 119/57 L 06/08/20 15:28 Pulse Ox 91 L 06/08/20 15:28 Body Mass Index 35.9 Const: Other: Constitutional : Alert, oriented, not in distress Neck : Normal inspection, Supple Cardiovascular : RRR, S1 S2, no lower extremity edema Respiratory : Good bilateral air entry, no crackles, wheezes or rhonchi Gastrointestinal: soft, lax, Normal bowel sounds, Non tender Skin : Warm/Dry, No rash Neurological : Alert & oriented x3, No focal deficit, left upper extremity tingling sensation with no sensory deficit, cranial nerves within normal Objective Data Current Medications Generic Name Dose Route Start Last Admin Trade Name Freq PRN Reason Stop Dose Admin Acetaminophen 650 mg 06/07/20 17:47 Acetaminophen 325 Mg Tablet PO Q6H PRN Pain, Mild (Pain Scale 1-3) Allopurinol 300 mg 06/08/20 09:00 06/08/20 08:07 Allopurinol 300 Mg Tablet PO 300 mg DAILY [facility] Administration Aspirin 81 mg 06/08/20 09:00 06/08/20 08:07 Aspirin Enteric Coated 81 Mg Tablet. PO 81 mg DAILY [facility] Administration Atorvastatin Calcium 80 mg 06/08/20 21:00 Atorvastatin Calcium 80 Mg Tablet PO BEDTIME [facility] Duloxetine HCl 30 mg 06/08/20 09:00 06/08/20 08:07 Duloxetine Hcl 30 Mg Capsule. PO 30 mg DAILY [facility] Administration Enoxaparin Sodium 40 mg 06/08/20 11:30 06/08/20 12:47 Enoxaparin Sodium 40 Mg/0.4 Ml Syringe SUBCUT 40 mg Q24H [facility] Administration Gabapentin 300 mg 06/07/20 21:00 06/08/20 08:07 Gabapentin 300 Mg Capsule PO 300 mg TID [facility] Administration Insulin Human Lispro 0 unit 06/07/20 21:00 06/08/20 12:20 Insulin Lispro 100 Unit/Ml 3 Ml Vial SUBCUT 4 unit QIDACHS [facility] Administration Protocol Omeprazole 20 mg 06/08/20 06:30 06/08/20 05:42 Omeprazole 20 Mg Capsule. PO 20 mg DAILY@0630 [facility] Administration Ondansetron HCl 4 mg 06/07/20 17:47 Ondansetron Hcl 4 Mg/2 Ml Vial IVPUSH Q8H PRN Nausea and Vomiting Pharmacy Consult 1 each 06/07/20 12:02 Consult Rx Perform Med Rec MISCELLANE ONCE PRN Consult order Tramadol HCl 50 mg 06/07/20 17:47 06/07/20 23:35 Tramadol Hcl 50 Mg Tablet PO 50 mg BID PRN Administration Pain Labs CBC & Chem 7: 06/08/20 05:36 06/08/20 05:36 Assessment and Plan (1) Acute lacunar infarction: Status: Acute Assessment and Plan: 74 years old lady with PMH of diabetes, HTN, HLD, neuropathy presents to the hospital with reported 1 day history of left-sided tingling sensation. Acute stroke echo within normal systolic and diastolic function Continue baby aspirin Atorvastatin of 80 mg Neurology input appreciated, secondary prevention PT, OT eval Stroke education Hypokalemia. Hypomagnesemia. Repleted in the ER Trend Hypertension. Stable blood pressure. Allow permissive hypertension Hold amlodipine, hydrochlorothiazide GERD Continue PPI Fibromyalgia. Chronic pain. Continue tramadol, gabapentin DVT prophylaxis Lovenox
[2020-06-08 16:28] LABS: Glucose, Whole Blood 110 mg/dL (60-115)
--- NOTE | 2020-06-08 17:47 | CA_ITS ---
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 - Diastolic function is normal for age. - Normal right ventricular cavity size and systolic function. - There is mild aortic valve stenosis. - The inferior vena cava is normal in size and collapses greater than 50% with inspiration. - There is no evidence of interatrial shunt by color Doppler. Findings Left Ventricle Normal left ventricular size and systolic function. There is mildly increased left ventricular wall thickness. The visually estimated ejection fraction is between 55-60%. There is no evidence of regional wall motion abnormalities. Diastolic function is normal for age. Right Ventricle Normal right ventricular cavity size and systolic function. Atria Both atria are normal in size. There is no evidence of interatrial shunt by color Doppler. Aortic Valve There is a normal trileaflet aortic valve. There is mild aortic valve stenosis. The peak aortic velocity is 1.95 m/s. The aortic valve area is 1.29 cm2. There is no aortic valve regurgitation. Mitral Valve Normal mitral valve structure and function. There is trace mitral valve regurgitation. There is no mitral valve stenosis. Pulmonic Valve The pulmonic valve was not well visualized. Tricuspid Valve Normal tricuspid valve structure and function. There is trace tricuspid valve regurgitation. Normal right atrial pressure. There is no evidence of pulmonary hypertension. Great Vessels All visible segments of the aorta are normal in size. The pulmonary artery was not well visualized. Venous The inferior vena cava is normal in size and collapses greater than 50% with inspiration. Pericardium/Pleural There is no evidence of pericardial effusion. Prior Study Comparison No prior study available for comparison. Measurements 2D Linear Measurements IVSd: 1.05 0.6-0.9/0.6-1.0 cm LVIDd: 4.57 3.9-5.3/4.2-5.9 cm LVIDd Index: 2.24 2.4-3.2/2.2-3.1 cm/m2 LVIDs: 3.25 2.0-3.6 cm LVPWd: 1.02 0.7-1.1 cm Ao Root: 2.80 2.1-3.5 cm LA Diam: 3.50 2.7-3.8/3.0-4.0 cm LAIDs Index: 1.72 1.5-2.3 cm/m2 LV Mass: 205.20 67-162/88-224 g LV Mass Index: 100.59 43-95/49-115 g/m2 LVOT Diam: 1.90 3.0+(-)1.3 cm Mitral Valve E'Lateral: 8.92 E'Medial: 4.35 Aortic Valve AoV Pk Rom: 1.95 AoV Mn Rom: 1.46 AoV VTI: 0.41 AoV Pk Grad: 15.00 Aov Mn Grad: 9.00 LUIS ALBERTO Cont.VTI: 1.29 LVOT LVOT Pk Rom: 0.78 LVOT Mn Rom: 0.55 LVOT VTI: 0.19 LVOT Pk Grad: 2.00 LVOT Mn Grad: 1.00 LVOT Diam: 1.90 LVOT Area: 2.84 Diastolic Function E'Medial: 4.35 E' Laterial: 8.92 Tricuspid Valve TR Pk Rom: 2.61 TR Pk Grad: 27.00 RA Press: 3.00 RVSP: 30.00 Great Vessels Aorta Ao Root-2D: 2.80 2.0-3.7 cm Ao Arch: 2.50 Updated in Other Vendor System with Status of Final Addison Royal MD electronically signed on 06/08/2020 3:21:29 PM with status of Final
[2020-06-08 19:08] VITALS: BP 146/66; PULSE 75; RESP 18; TEMP 36.7; O2SAT 94
[2020-06-08 20:25] LABS: Glucose, Whole Blood 154 mg/dL (60-115)
[2020-06-08] MEDS: Atorvastatin Calcium 80 MG TABLET PO (21:38)
[2020-06-08] MEDS: traMADoL HCL 50 MG TABLET PO (21:38)
[2020-06-08 23:47] VITALS: BP 140/80; PULSE 81; RESP 14; TEMP 36.4; O2SAT 95
[2020-06-09 04:00] VITALS: BP 114/53; PULSE 69; RESP 14; TEMP 36.6; O2SAT 90
[2020-06-09] MEDS: Omeprazole 20 MG CAPSULE.DR PO (06:33)
[2020-06-09 07:09] LABS: Anion Gap 17 (12-20); Blood Urea Nitrogen 25 mg/dL (9-16); Carbon Dioxide 28 mmol/L (22-29); Chloride 99 mmol/L (96-108); Creatinine Clr Calc Pharmacy 43.6; Estimated Glomerular Filt Rate 39; Glucose Random 136 mg/dL (60-115); Potassium 3.2 mmol/L (3.3-5.1); Sodium 141 mmol/L (135-145)
[2020-06-09 07:17] LABS: Glucose, Whole Blood 153 mg/dL (60-115)
[2020-06-09 07:21] VITALS: BP 121/67; PULSE 86; RESP 18; TEMP 36.4; O2SAT 93
[2020-06-09] MEDS: Potassium Chloride ER 20 MEQ TAB.ER.PRT PO (09:06)
[2020-06-09] MEDS: DULoxetine HCl 30 MG CAPSULE.DR PO (09:06)
[2020-06-09] MEDS: allopurinoL 300 MG TABLET PO (09:07)
[2020-06-09] MEDS: Aspirin Enteric Coated 81 MG TABLET.DR PO (09:07)
[2020-06-09] MEDS: Gabapentin 300 MG CAPSULE PO (09:07)
[2020-06-09 11:16] LABS: Glucose, Whole Blood 194 mg/dL (60-115)
[2020-06-09 12:00] VITALS: BP 140/66; PULSE 82; RESP 20; TEMP 36.9; O2SAT 94
--- NOTE | 2020-06-09 12:08 | MHC.CM.PN ---
pt is dcd home with no servceis
--- NOTE | 2020-06-09 12:49 | PM.DS ---
DS: Providers Provider Date of Service: 06/09/20 Date of admission: 06/07/20 17:47 Primary care physician: Lashon Trammell NP Consults: 06/07/20 17:47 Consult to Neurology Routine Consulting Provider: [facility] Reason for consultation: stroke Has provider been notified: No DS: Diagnosis Discharge Diagnosis (1) Acute lacunar infarction: Status: Acute (2) Hypomagnesemia: Status: Acute (3) Acute hypokalemia: Status: Acute DS: Medications Discharge Medications Home Medications: Home Medications Medication Instructions Recorded Confirmed allopurinol 1 tab PO DAILY 06/07/20 06/07/20 amlodipine 1 tab PO DAILY 06/07/20 06/07/20 duloxetine 1 cap PO DAILY 06/07/20 06/07/20 gabapentin 1 cap PO TID 06/07/20 06/07/20 glimepiride 1 tab PO QAM 06/07/20 06/07/20 hydrochlorothiazide 1 tab PO DAILY 06/07/20 06/07/20 metformin 1 tab PO BID 06/07/20 06/07/20 omeprazole 1 cap PO DAILY 06/07/20 06/07/20 tramadol 1 tab PO BID PRN 06/07/20 06/07/20 Previous Rx's Medication Instructions Recorded aspirin 81 mg PO DAILY #30 tab 06/09/20 atorvastatin 80 mg PO BEDTIME #30 tab 06/09/20 DS: Summary Hospital Course Hospital Course: Admission note HPI 74-year-old woman presenting to the ER with weakness in the left arm and leg. She reports that yesterday morning she woke up and from the top of her shoulder to her left foot felt heavy, numb and weak. She reported that she had no other symptoms. She denied chest pain, shortness of breath, nausea, vomiting, diarrhea, visual changes, headache, slurred speech. She denies history of stroke in the past. Although she does have a history of diabetes, hypertension, obesity. head CTA showed small lacunar infarct appearing as acute versus subacute. MRI pending. Her vital signs are stable , labs show leukocytosis of 16.5 with no signs of infection. Potassium 3.0, magnesium 1.3, COVID-19 negative. She reported that her primary care provider who she saw today keep her to aspirin. In the ER she also received IV magnesium, oral potassium. She will be admitted for further management and treatment of acute stroke. Hospital course Patient was admitted to the hospital for evaluation left-sided tingling sensation for [address], CTA of the brain were consistent with acute stroke to the thalamic area which was described as lacunar. MRI confirmed the findings as the patient was started on baby aspirin and high-dose atorvastatin of 80 mg daily. She was evaluated by Neurology who recommended to continue the same with permissive blood pressure control. Her blood pressure was noticed to be running on the normal to high normal values. Amlodipine was held and she was asked to monitor her blood pressure at home for 1 week and report readings to PCP to discuss medication need. Evaluated by Physical therapy and Occupational therapy with recommendation for home therapy. Was noted to have electrolyte imbalance with hypomagnesemia and hypokalemia at time of admission which was corrected with Time Spent with Patient Time attestation: Total time spent providing and/or coordinating discharge services: Discharge coordination time: Greater than 30 minutes Quality: Stroke Pt Provided Written Stroke Discharge Instructions: Patient given written information Physical Exam Vital Signs: Vital Signs: Last Vital Signs Temp 98.5 F 06/09/20 12:00 Pulse 82 06/09/20 12:00 Resp 20 06/09/20 12:00 BP 140/66 H 06/09/20 12:00 Pulse Ox 94 06/09/20 12:00 Body Mass Index 35.9 Const: Other: Constitutional : Alert, oriented, not in distress Neck : Normal inspection, Supple Cardiovascular : RRR, S1 S2, no lower extremity edema Respiratory : Good bilateral air entry, no crackles, wheezes or rhonchi Gastrointestinal: soft, lax, Normal bowel sounds, Non tender Skin : Warm/Dry, No rash Neurological : Alert & oriented x3, No focal deficit, left upper extremity tingling sensation with no sensory deficit, cranial nerves within normal DS: Data Data Completed and Pending Labs on day of discharge: Laboratory Results - last 24 hr 06/08/20 06/08/20 06/09/20 16:22 20:21 05:30 Sodium 141 Potassium 3.2 L Chloride 99 Carbon Dioxide 28 Anion Gap 17 BUN 25 H Creatinine 1.35 Estim Creat Clear Calc 43.6 Estimated GFR 39 POC Glucose 110 154 H Random Glucose 136 H Calcium 9.0 06/09/20 06/09/20 07:07 11:09 Sodium Potassium Chloride Carbon Dioxide Anion Gap BUN Creatinine Estim Creat Clear Calc Estimated GFR POC Glucose 153 H 194 H Random Glucose Calcium Discharge Plan Discharge Patient Disposition: Home Health Service Discharge Diagnosis: Acute lacunar stroke Referrals: Lashon Trammell NP [Primary Care Provider] - 1 Week Discharge Medications: New atorvastatin 80 mg Tablet 80 mg PO BEDTIME Qty: 30 RF: 0 aspirin 81 mg Tablet,Delayed Release (Dr/Ec) 81 mg PO DAILY Qty: 30 RF: 0 Continued metformin 500 mg tablet 1 tab PO BID RF: 0 tramadol 50 mg tablet 1 tab PO BID PRN (Reason: Pain) RF: 0 glimepiride 2 mg tablet 1 tab PO QAM RF: 0 gabapentin 300 mg capsule 1 cap PO TID RF: 0 omeprazole 20 mg capsule,delayed release(DR/EC) 1 cap PO DAILY RF: 0 allopurinol 300 mg tablet 1 tab PO DAILY RF: 0 hydrochlorothiazide 25 mg tablet 1 tab PO DAILY RF: 0 duloxetine 30 mg capsule,delayed release(DR/EC) 1 cap PO DAILY RF: 0 Held amlodipine 5 mg tablet 1 tab PO DAILY RF: 0 Hold Instructions: Resume on 06/14/20. Discontinued simvastatin 20 mg tablet 1 tab PO BEDTIME RF: 0 Discharge Orders: Discharge Order (Routine); Ordered 06/09/20 Ordered By: Jewel Kerr Diet: advance to usual diet Activity on Discharge: As tolerated Stand Alone Forms: Patient Portal Discharge page Care Plan Goals: Read below Health Concerns: Read below Plan of Treatment: You were admitted to the hospital for evaluation of left-sided tingling sensation. Evaluation with CT scan, MRI to the brain were consistent with acute stroke. You reported mild improvement in the symptoms and evaluated by Neurology team who recommended baby aspirin and high-dose cholesterol medication to prevent a secondary stroke. Evaluated by Physical therapy and Occupational therapy. Your blood pressure was noticed to be in the high normal side. We held your blood pressure medication. Assessment: Continue baby aspirin and atorvastatin as prescribed Consider losing weight and increased physical activity Continue to hold amlodipine and check your blood pressure at home and report 1 week readings to PCP to discuss next steps.
[2020-06-09] MEDS: traMADoL HCL 50 MG TABLET PO (12:53)
== END 2020-06-09 13:07 | disposition home health service (06) | DRG 66 ==
LOC: HO.ED 15:38 → HO.IMC 18:28
PROVIDERS: Nurse Practitioner Acute Care; Physician Assistant; Admitting Provider Student in an Organized Health Care Education/Training Program; Emergency Provider Emergency Medicine; PCP Nurse Practitioner Family; Visit Provider Student in an Organized Health Care Education/Training Program
DX: I63.81 Other cerebral infarction due to occlusion or stenosis of small artery (principal); K21.9 Gastro-esophageal reflux disease without esophagitis; E11.42 Type 2 diabetes mellitus with diabetic polyneuropathy; F17.210 Nicotine dependence, cigarettes, uncomplicated; F32.9 Major depressive disorder, single episode, unspecified; E78.5 Hyperlipidemia, unspecified; Z71.6 Tobacco abuse counseling; E83.42 Hypomagnesemia; E87.6 Hypokalemia; I10 Essential (primary) hypertension; R20.2 Paresthesia of skin; M79.7 Fibromyalgia; E66.9 Obesity, unspecified; Z68.36 Body mass index [BMI] 36.0-36.9, adult; Z20.822 Contact with and (suspected) exposure to COVID-19; Z88.2 Allergy status to sulfonamides; Z79.82 Long term (current) use of aspirin; Z79.891 Long term (current) use of opiate analgesic; Z79.899 Other long term (current) drug therapy
CPT/HCPCS: 36415; 70450; 70496; 70498; 70551; 80048; 80061; 80076; 82947; 83735; 85025; 85610; 85730; 87635; 93005; 93306; 96365; 96366; 97110; 97161; 97166; 97530; 99285; 99291; J1650; J3475; Q9967

== ENCOUNTER 2021-07-18 11:01 | Outpatient (REF) | payer MEDICARE, SELFPAY ==
--- NOTE | ~2021-07-18 | MM_ITS ---
EXAMINATION: MM SCREENING DIGITAL BREAST TOMOSYNTHESIS, BILATERAL CLINICAL INFORMATION: Screening. Asymptomatic. The lifetime risk of breast cancer based on the Tyrer-Cuzick Model is 6%. COMPARISON: Mammography: 07/27/2015, 05/18/2014 TECHNIQUE: Digital breast tomosynthesis is performed in both the craniocaudal and mediolateral oblique views along with computer-aided detection (CAD). Synthesized 2D images are generated from the tomosynthesis. Additional right CC and bilateral MLO views are provided. FINDINGS: The breasts are almost entirely fatty (ACR BI-RADS breast composition Category a). There are no significant masses, abnormal calcifications, or other abnormalities. Background stromal and fibroglandular densities are stable. No developing density or architectural abnormality. The axilla are unremarkable. MM/MM tomosynthesis screening BI IMPRESSION: No mammographic evidence of malignancy. ASSESSMENT: BI-RADS 1: Negative RECOMMENDATION: Routine annual mammography screening. This patient's information was entered into a reminder system with a target due date for their next mammogram.
== END 2021-07-18 11:02 | disposition home or self-care (01) ==
LOC: HO.MAMMO 11:01
PROVIDERS: PCP Nurse Practitioner Family; Visit Provider Nurse Practitioner Family
DX: Z12.31 Encounter for screening mammogram for malignant neoplasm of breast (principal)
CPT/HCPCS: 77063; 77067

== ENCOUNTER 2025-01-21 15:46 | Outpatient (REF) | payer MEDICARE, SELFPAY ==
--- OUTSIDE RECORDS SUMMARY | 2020-08-02 12:03 | XMS_ITS | Encounter Summary ---
Author Organization [facility] Address [address] [facility] [address] [place] [phone] Phone Care Team Providers Care Biology Lecturer Name Role Phone Lashon Trammell NP Primary Care Provider [phone] Encounter Details Date Type Department Care Team (Late st Contact Info) Description 08/02/2020 1:03 PM EDT Hospital Encounter [facility] [address] [place] [id number] Henrietta García PA [address] [address] [email or web address] Social History Tobacco Use Types Packs/Day Years Used Date Smoking Tobacco: Some Days Cigarettes 0 58.9 Started: 03/1961; Last attempted to quit: 03/2018 Passive Smoke Exposure: Past Smokeless Tobacco: Never Comments:Once 1-3 months, 1 pack Passive Exposure Comments:mom and dad smoked in the house Alcohol Use Standard Drinks/Week Comments Yes 0 (1 standard drink = 0.6 oz pure alcohol) Very rare, 5 drinks a year if that Education Answer Date Recorded Are you interested in more education? Not on vladislav e 06/13/2022 Are you concerned about learning? Not on file 06/13/2022 No 06/13/2022 No 06/13/2022 Digital Access Answer Date Recorded No 07/12/2022 No 07/12/2022 Reliable internet access at home? Not on file 07/12/2022 Device with a working camera? Not on file Intimate Partner Violence Answer Date R ecorded Are you denied basic needs s uch as food, clothing, or medical care? No 12/14/2024 In the past 12 months have y ou been in a relationship with a person who hurts, threatens, or tries to control you? No 12/14/2024 Are you denied basic needs s uch as food, clothing, or medical care? No 12/14/2024 In the past 12 months have y ou been in a relationship with a person who hurts, threatens, or tries to control you? No 12/14/2024 Comments Unknown Sex and Gender Information Value Date Recorded Sex Assigned at Not on file Legal Sex Female 10:05 PM EDT Gender Identity Not on file Sexual Orientation Not on file documented as of this encounter Plan of Treatment Upcoming Encounters Date Type Department Care Team (Late st Contact Info) Description 02/28/2025 9:20 AM EST Office Visit [facility] [address] [phone] Jayne Kelley PA-C [address] [place] [address] 06/06/2025 11:00 AM EDT Office Visit [facility] [address] [phone] Jayne Kelley PA-C [address] [place] [address] 06/14/2025 11:30 AM EDT Office Visit [address] [address] Steven Jones, SHOE DYER [address] [place] [address], [address] [place] [address] 09/05/2025 11:00 AM EDT [facility] Visit [facility] [address] [place] [address] Portia Clifford MD [address] [facility] [address] [place] [address] [email or web address] 12/19/2025 11:30 AM EST Office Visit [address] [place] [address] Steven Jones, YANNA [address] [facility], [address] [place] [address] [email or web address] documented as of this encounter Procedures Procedure Name Priority Date/Time Associated Diagnosis Comments XR CHEST PA AND LATERAL 2 VIEWS Urgent/patient waiting 08/02/2020 1:12 PM EDT Acute bronchitis, unspecified organism documented in this encounter Results * XR CHEST PA AND LATERAL 2 VIEWS (08/02/2020 1:12 PM EDT) Anatomical Region Laterality Modality Chest Computed Radiogr aphy 08/02/2020 1:33 PM EDT Impressions 08/02/2020 1:34 PM EDT Normal Chest. Narrative 08/02/2020 1:34 PM EDT COMPARISON: None FINDINGS: Lines/tubes: None. Lungs: The lungs are well inflated and clear. There is no evidence of pneumonia or pulmonary edema. Pleura: There is no pleural effusion or pneumothorax. Heart and mediastinum: The heart and the mediastinum are normal. Bones: The thoracic skeleton is unremarkable. Procedure Note Jose Mcgovern, DO - 08/02/2020 COMPARISON: None FINDINGS: Lines/tubes: None. Lungs: The lungs are well inflated and clear. There is no evidence ofpneumonia or pulmonary edema. Pleura: There is no pleural effusion or pneumothorax. Heart and mediastinum: The heart and the mediastinum are normal. Bones: The thoracic skeleton is unremarkable. IMPRESSION: Normal Chest. Henrietta KHAN IMG XR CHEST Final Result documented in this encounter Visit Diagnoses Not on filedocumented in this encounter Additional Health Concerns Infection Onset Date Last Indicated Resolved Time CoV-Presumed 10/08/2021 10/08/2021 10/29/2021 1:21 AM EDT Assessment Noted Time PHQ-2 Depression Total Score: 0 12/10/19 19 10:23 AM EDT documented as of this encounter Care Teams Biology Lecturer Relationship Specialty Start Date End Date Lashon Trammell NP [email or web address] PCP - General 01/07/17 05/18/23 documented as of this encounter Additional Source Comments The information contained in this document represents components of the legal health record. It is not the complete legal health record.[facility]
--- OUTSIDE RECORDS SUMMARY | 2025-01-12 13:15 | XMS_ITS | Encounter Summary ---
Author Organization [facility] Address [facility] [address] [place] [address] Phone Care Team Providers Care Brick Washer Name Role Phone Steven Jonse NP Primary Care Provider [phone] Encounter Details Date Type Department Care Team (Late st Contact Info) Description 01/12/2025 1:15 PM EST [facility] [address] [place] [address] Richard Edward MD [address] [place] [address] [place] [phone] Stage 3a chronic kidney disease (HCC) (Primary Dx); Acute nontraumatic kidney injury, not otherwise specified (HCC) Social History Tobacco Use Types Packs/Day Years Used Date Smoking Tobacco: Never Assessed Comments Unknown Sex and Gender Information Value Date Recorded Sex Assigned at Not on file Legal Sex Female 1:00 PM EDT Gender Identity Not on file Sexual Orientation Not on file documented as of this encounter H&P Notes * Richard Edward MD - 01/12/2025 1:15 PM EST Images from the original note were not included. PATIENT: Shavonne Blankenship : 1945 ENCOUNTER: 01/12/2025 PCP: Steven Jones NP Shavonne Blankenship is a 79 y.o. year old patient who I have followed for a history of the following renal issues: CKD stage 3 DIGNA with incomplete recovery (Oct 2024) PAST MEDICAL HISTORY: Hypertension Type 2 diabetes COPD Gout Gastric reflux disease Long-term tobacco use INTERIM HISTORY: I had the pleasure of seeing your patient in follow up regarding their kidney disease. Allow me to summarize the for you. Since the last visit, the patient has had fluctuating creatinine levels over the past month and a half following her acute kidney injury in October from which she did not fully recover. Her most recent creatinine on December 27 was 2.2 mg/dL. Her potassium dropped to 2.6 as she has not been taking her potassium supplementation. She continues taking a magnesium supplementand remains on a proton pump inhibitor with no diuretics. Changes in medications include resuming potassium supplementation at 20 mEq twice daily. MEDICATIONS: Gabapentin 300 mg in the morning 600 mg at night Potassium chloride 20 mill equivalents twice a day (has not been taking) Duloxetine 50 mg a day Omeprazole 20 mg a day Allopurinol 300 mg a day Atorvastatin 40 mg a day Amlodipine 5 mg NovoLog insulin Flonase nasal inhaler Albuterol inhaler Trelegy Vitamin B12 Focused Physical Exam: Vital signs: Blood pressure 120/68. Weight and blood pressure stable. Cardiovascular: Heart rate and rhythm are normal. No murmurs, gallops, or rubs. Respiratory: No signs of respiratory distress. Abdomen: Abdomen soft and lax without tenderness; allograft nontender. Extremities: No lower extremity edema. Labs and data review: Interim labs and available data reviewed and discussed with the patient. LABS: Chemistry Lab Units 11/17/24 1434 11/11/24 1311 11/03/24 1145 10/26/24 1206 09/22/24 0513 09/15/24 0700 09/04/24 0650 09/03/24 0748 07/20/24 1147 06/01/24 1058 11/11/23 0857 07/21/23 1035 06/24/23 1108 CREATININE mg/dL 2.5* 3.1* 2.7* 4.3* 1.18* 1.24* < > 1.40* 1.4 1.3 1.3 1.2 1.2 BUN mg/dL 34* 46* 36* 57* 15 16 < > 16 16 17 24* 25* 17 POTASSIUM mmol/L 3* 3.3 3.5 2.6* 3.5 3.9 < > 2.7* 2.9* 3.2* 3.5 4 3.8 SODIUM mmol/L 139 141 140 140 139 138 < > 137 140 141 142 140 140 CO2 mmol/L 22 18* 23 23 36* 34* < > 35* 33 33 28 28 27 CHLORIDE mmol/L 101 105 102 96 98 99 < > 92* 95* 96 101 102 97 ALBUMIN g/dL -- -- 4 3.9 -- -- -- 3.3 -- -- -- -- 4.2 HEMOGLOBIN A1C % -- -- -- -- -- -- -- -- 6.6* 7.3* 7.9* 9.7* -- WBC AUTO K/uL 15.82* -- 17.82* 16.03* -- -- -- -- -- 15.58* -- -- 9.98 HEMATOCRIT % 43.5 -- 39.9 41.2 -- -- -- -- -- 41.7 -- -- 42 HEMOGLOBIN g/dL 13.6 -- 12.2 13.1 -- -- -- -- -- 13.9 -- -- 13.1 PLATELETS AUTO K/uL 372 -- 276 294 -- -- -- -- -- 210 -- -- 202 < > = values in this interval not displayed. Bone Mineral Lab Units 11/17/24 1434 11/11/24 1311 11/03/24 1145 10/26/24 1206 09/22/24 0513 09/15/24 0700 09/04/24 0650 09/03/24 0748 07/21/23 1035 06/24/23 1108 CALCIUM mg/dL 10.3 10.3 9.7 9.8 9.2 9.3 < > 9.5 < > 9.4 ALK PHOS U/L -- -- 91 77 -- -- -- 65 -- 71 VITAMIN D ng/mL -- -- -- 17* -- -- -- -- -- -- < > = values in this interval not displayed. Urine Lab Units 07/21/23 1045 ALB MG/G CREAT UR mg/g Cre 95.9* SUMMARY: Based on the above findings, my interpretation of the available data, and my best efforts to reconcile the active medications, the following problems/diagnoses with recommendations for any further testing, treatment options, and follow-up are provided for your review: Chronic and Active Issues: 1. Stage 3a chronic kidney disease (HCC) 2. Acute nontraumatic kidney injury, not otherwise specified (HCC) BRIEF VISIT SUMMARY: Follow-up visit for acute kidney injury from October with incomplete recovery. Creatinine fluctuating over past month and a half, most recent 2.2 mg/dL on December 27. Potassium low at 2.6, patient not taking potassium supplementation. Currently taking magnesium supplement and proton pump inhibi tor. Not on diuretics. Patient feeling better with good appetite, intermittent diarrhea, no lower extremity edema, denies chest pain or shortness of breath. Blood pressure 120/68. Plan to resume potassium supplementation at 20 mEq twice daily, continue magnesium supplement, follow-up labs in 5 dayswith potassium dose adjustment as needed. No other medication changes made. Follow up in one month. Orders Placed This Encounter ??? Renal function panel ??? Magnesium ??? magnesium oxide (MAG-OX) 400 MG tablet ??? potassium chloride (KLOR-CON M20) 20 MEQ CR tablet documented in this encounter Plan of Treatment Upcoming Encounters Date Type Department Care Team (Late st Contact Info) Description 02/14/2025 1:15 PM EST [facility] [address] [place] [phone] Richard Edward MD [address] [place] [address] [place] [address] Scheduled Orders Name Type Priority Associated Diagnoses Orde r Schedule Renal function panel Lab Routine Stage 3a chronic kidney disease (HCC) Acute nontraumatic kidney injury, not otherwise specified (HCC) Expected: 01/12/2025, Expires: 02/11/2026 Magnesium Lab Routine Stage 3a chronic kidney disease (HCC) Acute nontraumatic kidney injury, not otherwise specified (HCC) Expected: 01/12/2025, Expires: 02/11/2026 documented as of this encounter Visit Diagnoses Diagnosis Stage 3a chronic kidney disease (HCC)- Primary Acute nontraumatic kidney injury, not otherwise specified (HCC) documented in this encounter Care Teams Brick Washer Relationship Specialty Start Date End Date Steven Jones NP [address] [facility], [address] [place] [address] PCP - General Nurse Practitioner 11/15/24 documented as of this encounter
[2025-01-21 17:39] LABS: Anion Gap 12 (12-20); Blood Urea Nitrogen 28 mg/dL (9-16); Calcium 9.7 mg/dL (8.4-10.2); Carbon Dioxide 19 mmol/L (22-29); Chloride 115 mmol/L (96-108); Estimated Glomerular Filt Rate 22; Magnesium 1.9 mg/dL (1.6-2.6); Potassium 2.7 mmol/L (3.3-5.1); Sodium 143 mmol/L (135-145)
--- OUTSIDE RECORDS SUMMARY | 2025-01-21 19:40 | XMS_ITS | Encounter Summary ---
Author Organization [facility] Address [address] [place] [address] Care Team Providers Care Power House Control Room Operator Name Role Phone Steven Jones NP Primary Care Provider [phone]- [phone] Encounter Details Date Type Department Care Team (Latest Contact Info) Description 09/03/2024 Lab Requisition [facility] - Main Lab [address] [facility] [place] [address] Fartun Ho MD [address] [place], [place] [id number] Other cerebrovascular disease Social History Tobacco Use Types Packs/Day Years Used Date Smoking Tobacco: Former Cigarettes 0 Q uit: 07/18/2020 Comments Unknown Sex and Gender Information Value Date Recorded Sex Assigned at Female 02/02/2024 8:17 AM EST Legal Sex Female 1:22 PM EST Gender Identity Female 02/02/2024 8:17 AM EST Sexual Orientation Straight 02/02/2024 8: 17 AM EST documented as of this encounter Plan of Treatment Upcoming Encounters Date Type Department Care Team (Late st Contact Info) Description 03/14/2025 11:00 AM EST Office Visit Pulmonology - [place] [address] [place] [address] Tatiana Graves MD [address] [place] [address] 04/27/2025 11:15 AM EDT Office Visit [facility] Hematology Oncology [address] [place] [address] Maya Lundberg MD [address] [place] [address] documented as of this encounter Procedures Procedure Name Priority Date/Time Associated Diagnosis Comments COMPLETE BLOOD COUNT Routine 09/03/2024 7:48 AM EDT Other cerebrovascular disease COMPREHENSIVE METABOLIC PANEL Routine 09/03/2024 7:48 AM EDT Other cerebrovascular disease documented in this encounter Results * (ABNORMAL) Comprehensive metabolic panel (09/03/2024 7:48 AM EDT) Sodium 137 133 - 145 mmol/L LAB CHEMISTRY METHOD 09/03/2024 11:27 AM [facility] Potassium 2.7(LL) 3.5 - 5.5 mmol/L LAB CHEMISTRY METHOD 09/03/2024 11:27 AM [facility] Chloride 92(L) 96 - 110 mmol/L LAB CHEMISTRY METHOD 09/03/2024 11:27 AM [facility] CO2 35(H) 21 - 32 mmol/L LAB CHEMISTRY METHOD 09/03/2024 11:27 AM [facility] Anion Gap 10 3 - 11 LAB CHEMISTRY METHOD 09/03/2024 11:27 AM [facility] Glucose 185(H) 70 - 100 mg/dL LAB CHEMISTRY METHOD 09/03/2024 11:27 AM [facility] BUN 16 5 - 25 mg/dL LAB CHEMISTRY METHOD 09/03/2024 11:27 AM [facility] Creatinine 1.40(H) 0.50 - 1.10 mg/dL LAB CHEMISTRY METHOD 09/03/2024 11:27 AM [facility] eGFR 39(L) >=60 mL/min/1. 73m2 LAB CHEMISTRY METHOD 09/03/2024 11:27 AM [facility] Comment:Calculation based on the Chronic Kidney Disease Epidemiology Collaboration (CKD-EPI) equation refit without adjustment for race. BUN/Creatinine Ratio 11.4 LAB CHEMISTRY METHOD 09/03/2024 11:27 AM [facility] Calcium 9.5 8.5 - 10.5 mg/dL LAB CHEMISTRY METHOD 09/03/2024 11:27 AM [facility] AST (SGOT) 14 10 - 42 unit/L LAB CHEMISTRY METHOD 09/03/2024 11:27 AM [facility] ALT (SGPT) 8(L) 10 - 60 unit/L LAB CHEMISTRY METHOD 09/03/2024 11:27 AM [facility] Alkaline Phosphatase 65 42 - 121 unit/L LAB CHEMISTRY METHOD 09/03/2024 11:27 AM [facility] Total Protein 6.4 6.0 - 8.0 g/dL LAB CHEMISTRY METHOD 09/03/2024 11:27 AM [facility] Albumin 3.3 3.2 - 5.0 g/dL LAB CHEMISTRY METHOD 09/03/2024 11:27 AM [facility] Total Bilirubin 1.1 0.0 - 1.4 mg/dL LAB CHEMISTRY METHOD 09/03/2024 11:27 AM [facility] Blood Venous blood specimen / Unknown Venipuncture / Unknown 09/03/2024 7:48 AM EDT 09/03/2024 9:49 AM EDT us Fartun Ho MD LAB BLOOD ORDERABLES Final Resul t [facility] [address] [place] [address], * (ABNORMAL) Complete blood count (09/03/2024 7:48 AM EDT) [facility] WBC 14.1(H) 4.8 - 10.8 K/mcL LAB HEMETOLOGY METHOD 09/03/2024 10:25 AM [facility] RBC 4.00 3.80 - 4.80 M/mcL LAB HEMETOLOGY METHOD 09/03/2024 10:25 AM [facility] Hemoglobin 11.8 11.5 - 16.0 g/dL LAB HEMETOLOGY METHOD 09/03/2024 10:25 AM [facility] Hematocrit 36.6 35.0 - 47.0 % LAB HEMETOLOGY METHOD 09/03/2024 10:25 AM [facility] MCV 92.2 79.0 - 98.0 FL LAB HEMETOLOGY METHOD 09/03/2024 10:25 AM [facility] MCH 29.7 27.0 - 32.0 pcg LAB HEMETOLOGY METHOD 09/03/2024 10:25 AM [facility] MCHC 32.2 32.0 - 37.0 g/dL LAB HEMETOLOGY METHOD 09/03/2024 10:25 AM [facility] RDW 15.2(H) 11.0 - 15.0 % LAB HEMETOLOGY METHOD 09/03/2024 10:25 AM [facility] Platelets 301 130 - 400 K/mcL LAB HEMETOLOGY METHOD 09/03/2024 10:25 AM [facility] MPV 9.4 7.0 - 11.0 FL LAB HEMETOLOGY METHOD 09/03/2024 10:25 AM [facility] NRBC 0.1 <1.0 % LAB HEMETOLOGY METHOD 09/03/2024 10:25 AM [facility] NRBC Absolute 0.02 <0.10 K/mcL LAB HEMETOLOGY METHOD 09/03/2024 10:25 AM EDT [facility] Blood Venous blood specimen / Unknown Venipuncture / Unknown 09/03/2024 7:48 AM EDT 09/03/2024 9:49 AM EDT us Fartun Ho MD LAB BLOOD ORDERABLES Final Resul t [facility] [address] [place] [address], documented in this encounter Visit Diagnoses Diagnosis Other cerebrovascular disease documented in this encounter Care Teams Power House Control Room Operator Relationship Specialty Start Date End Date Steven Jones NP [address] [place], [place] PCP - General 09/11/23 documented as of this encounter
--- OUTSIDE RECORDS SUMMARY | 2025-01-21 19:40 | XMS_ITS | Encounter Summary ---
Author Organization [facility] Address [address] [address] Phone Care Team Providers Care Health Analyst Name Role Phone Steven Jones PRIVATE TUTOR Primary Care Provider [phone]- [phone] Encounter Details Date Type Department Care Team (Late Contact Info) Description 11/15/2024 Documentation Only [facility] [address] [place] [address] Larisa [place], [place] [address] [place] [address] Social History Tobacco Use Types Packs/Day Years [...] Visit [facility] [address] [place] [address] Richard Edward MD [address] [place] [address] [place] [address] documented as of this encounter Visit Diagnoses Not on filedocumented in this encounter Care Teams Health Analyst Relationship Specialty Start Date End Date Steven Jones NP [address] [place] [address], [address] [place], [place] [phone] PCP - General Nurse Practitioner 11/15/24 documented as of this encounter
--- OUTSIDE RECORDS SUMMARY | 2025-01-21 19:40 | XMS_ITS | Encounter Summary ---
Author Organization [facility] Address [address] [place] [address] Phone Care Team Providers Care Flume Tender Name Role Phone Maya Lundberg MD Unavailable Tatiana Graves MD Unavailable [phone] Steven Jones TELECOMMUNICATIONS PROJECT MANAGER Primary Care Provider [phone] Ventura Merritt DPM Unavailable [phone] Evi Rock MD, MPH Unavailable Enedina Heller MD Unavailable Magdiel Acosta MD Unavailable Jimmie Renee MD Unavailable [email or web address] Encounter Details Date Type Department Care Team (Late st Contact Info) Description 01/07/2025 Telephone [facility] [address] [place] [address] Steven Jones CNP [address] [place] [address] [email or web address] Social History Tobacco Use Types Packs/Day Years [...] on file documented as of this encounter Progress Notes * Cris Edward CMA - 01/18/2025 12:59 PM EST 2nd request faxed via [employer] * Cris Edward CMA - 01/07/2025 9:16 AM EST Document FW: Steven Chairez CNP Sent: FriJanuary 07, 2025 7:53 AM To: Cris Edward CMA Message They reference MRI but did not include it in this record. Can you get the report? Called [facility] was on hold automated system note holds can take over 10 minutes. Letter created and faxed as request for MRI report. documented in this encounter Plan of Treatment Upcoming Encounters Date Type Department Care Team (Late st Contact Info) Description 02/28/2025 9:20 AM EST Office Visit [facility] Endocrinology [address] [place] [phone] Jayne Kelley PA-C [address] [place] [address] 06/06/2025 11:00 AM EDT Office Visit [address] [phone] Jayne Kelley PA-C [address] [place] [address] 06/14/2025 11:30 AM EDT Office Visit [address] [place] [address] Steven Jones CNP [address] [place] [address], [address] [place] [address] 09/05/2025 11:00 AM EDT Office Visit [facility] Endocrinology [address] [place] [phone] Portia [place] MD [address] [place] [address] [address] [place] [address] 12/19/2025 11:30 AM EST Office Visit [address] [place] [address] Steven Jones CNP [address] [place] [address] [email or web address] documented as of this encounter Visit Diagnoses Not on filedocumented in this encounter Additional Health Concerns Assessment Noted Time PHQ-9 Depression Total Score: 7 12/02/19 25 4:10 PM EDT PHQ-2 Depression Total Score: 0 12/30/19 25 4:35 PM EST documented as of this encounter Care Teams Flume Tender Relationship Specialty Start Date End Date Steven Jones CNP [address] [place] [address] PCP - General Adult Health 07/21/23 Maya Lundberg MD [email or web address] Oncology 05/17/22 Tatiana Graves MD [address] [place] [id number] Pulmonary Disease 08/02/22 Ventura Merritt DPM [address] [place] [address] Podiatry 07/21/23 Evi Rock MD, MPH [address] [facility] [address] [facility] [address] [place] [address] Rheumatology 07/21/23 Enedina Heller MD [address] [place] [address] Thoracic Surgery 07/21/23 Magdiel Acosta MD [address] [place] [address], [address] [place] [address] [email or web address] Internal Medicine 07/21/23 Jimmie Renee MD [address] [place] [address] [email or web address] Pulmonary Disease 09/08/23 documented as of this encounter Additional Source Comments The information contained in this document represents components of the legal health record. It is not the complete legal health record.[facility]
--- OUTSIDE RECORDS SUMMARY | 2025-01-21 19:40 | XMS_ITS | Encounter Summary ---
Author Organization [facility] Address [address] [place] [address] Care Team Providers Care Building Mechanic Name Role Phone Steven Jones NP Primary Care Provider [phone]- [phone] Encounter Details Date Type Department Care Team (Late Contact Info) Description 09/14/2024 Lab Requisition [facility] - Main Lab [address] [facility] [place] [address] Fartun Ho MD [address] [place], [place] [phone] Essential (primary) hypertension Social History Tobacco Use Types Packs/Day Years [...] Encounters Date Type Department Care Team (Late Contact Info) Description 03/14/2025 11:00 AM EST Office Visit Pulmonology - [place] [address] [facility] [address] [place] [address] Tatiana Graves MD [address] [place] [address] 04/27/2025 11:15 AM EDT Office Visit [facility] Hematology Oncology [address] [place] [phone] Maya Lundberg MD [address] [place] [address] documented as of this encounter Procedures Procedure Name Priority Date/Time Associated Diagnosis Comments COMPLETE BLOOD COUNT Routine 09/15/2024 7:00 AM EDT Essential (primary) hypertension MAGNESIUM Routine 09/15/2024 7:00 AM EDT Essential (primary) hypertension BASIC METABOLIC PANEL Routine 09/15/2024 7:00 AM EDT Essential (primary) hypertension documented in this encounter Results * Magnesium (09/15/2024 7:00 AM EDT) [facility] Magnesium 1.9 1.9 - 2.6 mg/dL LAB CHEMISTRY METHOD 09/15/2024 10:22 AM EDT [facility] Blood Venous blood specimen / Unknown Venipuncture / Unknown 09/15/2024 7:00 AM EDT 09/15/2024 9:21 AM EDT us Fartun Ho MD LAB BLOOD ORDERABLES Final Resul t [facility] [address] [place] [address], * (ABNORMAL) Complete blood count (09/15/2024 7:00 AM EDT) Pathologist [facility] WBC 8.7 4.8 - 10.8 K/[facility] LAB HEMETOLOGY METHOD 09/15/2024 9:56 AM EDT [facility] RBC 3.80 3.80 - 4.80 M/[facility] LAB HEMETOLOGY METHOD 09/15/2024 9:56 AM EDT [facility] Hemoglobin 11.0(L) 11.5 - 16.0 g/dL LAB HEMETOLOGY METHOD 09/15/2024 9:56 AM [facility] Hematocrit 36.5 35.0 - 47.0 % LAB HEMETOLOGY METHOD 09/15/2024 9:56 AM [facility] MCV 95.3 79.0 - 98.0 FL LAB HEMETOLOGY METHOD 09/15/2024 9:56 [facility] MCH 28.7 27.0 - 32.0 pcg LAB HEMETOLOGY METHOD 09/15/2024 9:56 AM [facility] MCHC 30.1(L) 32.0 - 37.0 g/dL LAB HEMETOLOGY METHOD 09/15/2024 9:56 AM [facility] RDW 15.7(H) 11.0 - 15.0 % LAB HEMETOLOGY METHOD 09/15/2024 9:56 AM [facility] Platelets 277 130 - 400 K/mcL LAB HEMETOLOGY METHOD 09/15/2024 9:56 AM [facility] MPV 9.5 7.0 - 11.0 FL LAB HEMETOLOGY METHOD 09/15/2024 9:56 AM [facility] NRBC 0.0 <1.0 % LAB HEMETOLOGY METHOD 09/15/2024 9:56 AM [facility] NRBC Absolute 0.00 <0.10 K/mcL LAB HEMETOLOGY METHOD 09/15/2024 9:56 AM [facility] Blood Venous blood specimen / Unknown Venipuncture / Unknown 09/15/2024 7:00 AM EDT 09/15/2024 9:21 AM EDT Fartun Ho MD LAB BLOOD ORDERABLES Final Resul t [facility] [address] [place] [address], * (ABNORMAL) Basic metabolic panel (09/15/2024 7:00 AM EDT) Sodium 138 133 - 145 mmol/L LAB CHEMISTRY METHOD 09/15/2024 10:22 AM [facility] Potassium 3.9 3.5 - 5.5 mmol/L LAB CHEMISTRY METHOD 09/15/2024 10:22 AM [facility] Chloride 99 96 - 110 mmol/L LAB CHEMISTRY METHOD 09/15/2024 10:22 AM [facility] CO2 34(H) 21 - 32 mmol/L LAB CHEMISTRY METHOD 09/15/2024 10:22 AM [facility] Anion Gap 5 3 - 11 LAB CHEMISTRY METHOD 09/15/2024 10:22 AM [facility] Glucose 135(H) 70 - 100 mg/dL LAB CHEMISTRY METHOD 09/15/2024 10:22 AM [facility] BUN 16 5 - 25 mg/dL LAB CHEMISTRY METHOD 09/15/2024 10:22 AM [facility] Creatinine 1.24(H) 0.50 - 1.10 mg/dL LAB CHEMISTRY METHOD 09/15/2024 10:22 AM [facility] eGFR 45(L) >=60 mL/min/1. 73m2 LAB CHEMISTRY METHOD 09/15/2024 10:22 AM [facility] Comment:Calculation based on the Chronic Kidney Disease Epidemiology Collaboration (CKD-EPI) equation refit without adjustment for race. BUN/Creatinine Ratio 12.9 LAB CHEMISTRY METHOD 09/15/2024 10:22 AM [facility] Calcium 9.3 8.5 - 10.5 mg/dL LAB CHEMISTRY METHOD 09/15/2024 10:22 AM EDT [facility] Blood Venous blood specimen / Unknown Venipuncture / Unknown 09/15/2024 7:00 AM EDT 09/15/2024 9:21 AM EDT us Fartun Ho MD LAB BLOOD ORDERABLES Final Resul t [facility] [address] [place] [address], documented in this encounter Visit Diagnoses Diagnosis Essential (primary) hypertension Unspecified essential hypertension documented in this encounter Care Teams Building Mechanic Relationship Specialty Start Date End Date Steven Jones NP [address] [place], [place] PCP - General 09/11/23 documented as of this encounter
--- OUTSIDE RECORDS SUMMARY | 2025-01-21 19:40 | XMS_ITS | Encounter Summary ---
Author Organization [facility] Address [address] [place] [address] Care Team Providers Care Analysis Or Research Safety Inspector Name Role Phone Steven Jones NP Primary Care Provider [phone]- [phone] Encounter Details Date Type Department Care Team (Late Contact Info) Description 09/08/2024 Lab Requisition [facility] - Main Lab [address] [facility] [place] [address] Fartun Ho MD [address] [place], [place] [phone] Essential (primary) hypertension Social History Tobacco Use [...] 11:00 AM EST Office Visit Pulmonology - [place] [address] [facility] [address] [place] [address] Tatiana Graves MD [address] [place] [address] 04/27/2025 11:15 AM EDT Office Visit [facility] Hematology Oncology [address] [place] [address] Maya Lundberg MD [address] [place] [address] documented as of this encounter Procedures Procedure Name Priority Date/Time Associated Diagnosis Comments COMPLETE BLOOD COUNT Routine 09/08/2024 5:21 AM EDT Essential (primary) hypertension BASIC METABOLIC PANEL Routine 09/08/2024 5:21 AM EDT Essential (primary) hypertension documented in this encounter Results * (ABNORMAL) Basic metabolic panel (09/08/2024 5:21 AM EDT) Sodium 138 133 - 145 mmol/L LAB CHEMISTRY METHOD 09/08/2024 12:09 PM [facility] Potassium 3.1(L) 3.5 - 5.5 mmol/L LAB CHEMISTRY METHOD 09/08/2024 12:09 PM [facility] Chloride 95(L) 96 - 110 mmol/L LAB CHEMISTRY METHOD 09/08/2024 12:09 PM [facility] CO2 36(H) 21 - 32 mmol/L LAB CHEMISTRY METHOD 09/08/2024 12:09 PM [facility] Anion Gap 7 3 - 11 LAB CHEMISTRY METHOD 09/08/2024 12:09 PM [facility] Glucose 116(H) 70 - 100 mg/dL LAB CHEMISTRY METHOD 09/08/2024 12:09 PM [facility] BUN 17 5 - 25 mg/dL LAB CHEMISTRY METHOD 09/08/2024 12:09 PM [facility] Creatinine 1.24(H) 0.50 - 1.10 mg/dL LAB CHEMISTRY METHOD 09/08/2024 12:09 PM EDT [facility] eGFR 45(L) >=60 mL/min/1. 73m2 LAB CHEMISTRY METHOD 09/08/2024 12:09 PM EDT [facility] Comment:Calculation based on the Chronic Kidney Disease Epidemiology Collaboration (CKD-EPI) equation refit without adjustment for race. BUN/Creatinine Ratio 13.7 LAB CHEMISTRY METHOD 09/08/2024 12:09 PM EDT [facility] Calcium 9.5 8.5 - 10.5 mg/dL LAB CHEMISTRY METHOD 09/08/2024 12:09 PM EDT [facility] Blood Venous blood specimen / Unknown Venipuncture / Unknown 09/08/2024 5:21 AM EDT 09/08/2024 10:29 AM EDT us Fartun Ho MD LAB BLOOD ORDERABLES Final Resul t [facility] [address] [place] [address], * (ABNORMAL) Complete blood count (09/08/2024 5:21 AM EDT) WBC 11.8(H) 4.8 - 10.8 K/mcL LAB HEMETOLOGY METHOD 09/08/2024 11:25 AM [facility] RBC 3.70(L) 3.80 - 4.80 M/mcL LAB HEMETOLOGY METHOD 09/08/2024 11:25 AM EDT [facility] Hemoglobin 10.7(L) 11.5 - 16.0 g/dL LAB HEMETOLOGY METHOD [facility]/08[facility]24 [facility] Hematocrit 35.2 35.0 - 47.0 % LAB HEMETOLOGY METHOD 09/08/2024 11:25 AM EDT [facility] MCV 94.9 79.0 - 98.0 FL LAB HEMETOLOGY METHOD 09/08/2024 11:25 AM EDT [facility] MCH 28.8 27.0 - 32.0 pcg LAB HEMETOLOGY METHOD 09/08/2024 11:25 AM EDT [facility] MCHC 30.4(L) 32.0 - 37.0 g/dL LAB HEMETOLOGY METHOD 09/08/2024 11:25 AM EDT [facility] RDW 15.6(H) 11.0 - 15.0 % LAB HEMETOLOGY METHOD 09/08/2024 11:25 AM EDT [facility] Platelets 276 130 - 400 K/mcL LAB HEMETOLOGY METHOD 09/08/2024 11:25 AM EDT [facility] MPV 9.4 7.0 - 11.0 FL LAB HEMETOLOGY METHOD 09/08/2024 11:25 AM EDT [facility] NRBC 0.2 <1.0 % LAB HEMETOLOGY METHOD 09/08/2024 11:25 AM EDT [facility] NRBC Absolute 0.02 <0.10 K/mcL LAB HEMETOLOGY METHOD 09/08/2024 11:25 AM T [facility] Blood Venous blood specimen / Unknown Venipuncture / Unknown 09/08/2024 5:21 AM EDT 09/08/2024 10:29 AM EDT us Fartun Ho MD LAB BLOOD ORDERABLES Final Resul t [facility] [address] [place] [address], documented in this encounter Visit Diagnoses Diagnosis Essential (primary) hypertension Unspecified essential hypertension documented in this encounter Care Teams Analysis Or Research Safety Inspector Relationship Specialty Start Date End Date Steven Jones NP [address] [place], [place] PCP - General 09/11/23 documented as of this encounter
--- OUTSIDE RECORDS SUMMARY | 2025-01-21 19:40 | XMS_ITS | Clinical Summary ---
Author Organization [facility] Address [address] [place] [address] Phone Care Team Providers Care Crusher Setter Name Role Phone Steven Jones NP Primary Care Provider [phone]- [phone] Allergies Active Allergy Reactions Criticality Noted Date Comments Lisinopril Angioedema,Unknown,S well ing High 08/11/2017 Metformin Diarrhea 07/21/2023 Potassium Skin Problems 10/19/2024 Skin peels Sulfa (Sulfonamide Antibiotics) Unknown 10/17/2020 Medications allopurinoL (ZYLOPRIM) 300 mg tablet Take 1 tablet (300 mg total) by mouth 1 (one) time each day. 1 Active amLODIPine (NORVASC) 2.5 mg tablet Take 1 tablet (2.5 mg total) by mouth 1 (one) time each day. 1 Active atorvastatin (LIPITOR) 80 mg tablet Take 1 tablet (80 mg total) by mouth 1 (one) time each day. Active DULoxetine (CYMBALTA) [address] capsule Take 1 capsule (30 mg total) by mouth 1 (one) time each day. Active fluticasone-ume clidinium-vilan terol (TRELEGY ELLIPTA) 100-62.5-25 mcg inhaler Inhale. Active gabapentin (NEURONTIN) 300 mg capsule Take 1 capsule (300 mg total) by mouth 3 (three) times a day. 1 Active hydroCHLOROthia zide (HYDRODIURIL) 25 mg tablet Take 1 tablet (25 mg total) by mouth 1 (one) time each day. Active omeprazole (PriLOSEC) [address] capsule Take 1 capsule (20 mg total) by mouth 1 (one) time each day. 1 Active traMADoL (ULTRAM) 50 mg tablet Take 1 tablet (50 mg total) by mouth every 6 (six) hours if needed. 1 Active Ozempic 2 mg/dose (8 mg/3 mL) injection pen Inject 2 mg under the skin every 7 (seven) days. Active bisacodyL (DULCOLAX) 5 mg EC tablet Take 6 tablets (30 mg total) by mouth 1 (one) time each day if needed for constipation. Do not crush, chew, or split. Active bisacodyL (DULCOLAX) 5 mg EC tablet Take 6 tablets (30 mg total) by mouth 1 (one) time each day if needed for constipation. Do not crush, chew, or split. Active albuterol HFA (PROAIR HFA ; PROVENTIL HFA ; VENTOLIN HFA) 90 mcg/actuation inhaler Inhale 2 puffs by mouth 3 (three) times a day. 2 Active aspirin 81 mg chewable tablet Chew 1 tablet (81 mg total) 1 (one) time each day at the same time. Active OneTouch Ultra Test test strip 1 each by Other route if needed. 5 Active fluticasone propionate (FLONASE) 50 mcg/actuation nasal spray Administer 1 spray into each nostril 1 (one) time each day. 5 Active glimepiride (AMARYL) 2 mg tablet Take 1 tablet (2 mg total) by mouth 1 (one) time each day at the same time. 1 Active NovoLOG Flexpen U-100 Insulin 100 unit/mL (3 mL) injection pen Inject under the skin 3 (three) times a day before meals. 5 Active potassium chloride 20 mEq/50 mL IVPB Take 50 mL (20 mEq total) by mouth 1 (one) time. 5 Active magnesium oxide (MAG-OX) 400 mg magnesium tablet Take 1 tablet (400 mg total) by mouth 1 (one) time each day. Active fluticasone-ume clidinium-vilan terol (Trelegy Ellipta) 100-62.5-25 mcg inhaler Inhale 1 puff (100 mcg total) by mouth 1 (one) time each day. Rinse mouth with water after use to reduce aftertaste and incidence of candidiasis. Do not swallow. 1 each 12 5 11/25/19 26 Active albuterol HFA (Ventolin HFA) 90 mcg/actuation inhaler Inhale 2 puffs by mouth every 6 (six) hours if needed for wheezing. 18 g 11 5 11/25/19 26 Active Active Problems Problem Noted Date Diagnosed Date Acquired hammer toe of right foot 08/11/2024 Class 1 obesity 08/11/2024 Malignant neoplasm of lung (CMS/HCC V24, CMS/HCC V28) 08/11/2024 Acquired hammer toe of left foot 08/04/2024 Asthma 08/04/2024 Chronic obstructive pulmonar y disease (CMS/HCC V24, CMS/HCC V28) 08/04/2024 Chronic respiratory failure with hypoxia (CMS/HCC V24, CMS/HCC V28) 08/04/2024 Hypertension 08/04/2024 Lumbar spinal stenosis 08/04/2024 Peripheral angiopathy due to type 2 diabetes mellitus (CMS/HCC V24, CMS/HCC V28) 08/04/2024 Severe obesity (CMS/HCC V24, CMS/HCC V28) 2024 Type 2 diabetes mellitus wit h peripheral neuropathy (CMS/HCC V24, CMS/HCC V28) 08/04/2024 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 There is minimal change of these nodules over time however there is a lesion in the liver on most recent imaging. I did have discussion with her about carcinoid tumors in general and how they are treated. We also talked about pulmonary nodules in general and how their size, shape, and guide changer time affect her level of suspicion for malignancy. We have not done a dotatate PET scan and her as of yet so we will plan on getting that done and also an MRI of the liver with follow-up with her oncologist and myself after those tests. All questions were answered. History of lung cancer 04/02/2024 Pulmonary nodules 04/02/2024 Liver lesion 04/02/2024 Primary osteoarthritis of right knee 03/09/2024 Primary osteoarthritis of right hip 11/10/2023 Overview (08/11/2024): Plain film 10/2023 There is moderate to marked degenerative change of the right hip. There is prominent heterotopic ossification along the inferior femoral neck. There is mild degenerative change of the left hip. The sacroiliac joints and symphysis pubis are congruent. Steroid injections to right greater trochanter 11/10/23 and 03/02/24 Long-term (current) use of i njectable non-insulin antidiabetic drugs 11/07/2023 Incontinence of feces with fecal urgency 023 Loose stools 01/31/2023 Memory change 01/31/2023 Stage 3b chronic kidney disease ([facility] V24, CM S/[facility] V28) 05/09/2022 Primary osteoarthritis of both knees 05/24/2021 Overview (08/11/2024): Inadequate benefit following intra-articular steroid injection bl 08/2022 Topical diclofenac resulted in diarrhea Benefit from intra-articular steroid injection bl 06/2023 waned in less than 2 months Plain films 06/2023 Right knee tricompartmental osteoarthritis, moderate in the patellofemoral compartment. Left knee tricompartmental osteoarthritis, moderate in the patellofemoral compartment. Type 2 diabetes mellitus wit hout complications ([facility] V24, [facility] V28) 03/01/2021 Pain of right thumb 05/26/2020 Tendinitis of right knee 02/25/2020 Plantar fasciitis, bilateral 08/14/2018 Primary osteoarthritis involving multiple joints 08/14/2018 Acute bilateral ankle pain 07/14/2018 Pes anserine bursitis 10/14/2017 Bilateral foot pain 02/04/2017 Chronic bilateral low back pain with bilateral s ciatica 02/04/2017 Fibromyalgia 02/04/2017 Essential (primary) hypertension 02/04/2017 Gastroesophageal reflux disease without esophagi tis 02/04/2017 Hypomagnesemia 02/04/2017 Lumbar radiculopathy 02/04/2017 Mixed hyperlipidemia 02/04/2017 Encounters Date Type Department Care Team Description 11/24/2024 2:45 PM EDT Office Visit Pulmonology - [place] [address] [place] [phone] Tatiana Graves MD Obstructive sleep apnea (Primary Dx); Nocturnal hypoxemia; Morbid obesity ([facility] V24, [facility] V28); Adenocarcinoma of left lung ([facility] V24, [facility] V28); Chronic obstructive pulmonary disease with emphysema, unspecified emphysema type ([facility] V24, [facility] V28) 10/25/2024 10:30 AM EDT Office Visit Thoracic Surgery [facility] [address] [place] [phone] Enedina Heller MD 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 ([facility] V28) (Primary Dx); Malignant neoplasm of upper lobe of left lung ([facility] V24, [facility] V28) from Last 3 Months Immunizations Immunization Administration Dates Next Due Pfizer SARS-CoV-2 COVID-19, mRNA, LNP-S, preservative free 04/29/2020,04/06/2020 Surgical History Surgery Date Site/Laterality Comments OTHER SURGICAL HISTORY 08/23/2020 Left PROCEDURE: WI RESCJ&BRONCHOPLASTY PFRMD TM LOBEC/SGMECTOMY CHOLECYSTECTOMY PROCEDURE: WI CHOLECYSTECTOMY Medical History Medical History Date Comments Type 2 diabetes mellitus wit hout complications ([facility] V24, [facility] V28) DX:Type 2 henok betes mellitus without complications (HCC) GERD (gastroesophageal reflux disease) DX:GERD (gastroesophageal reflux disease) Essential (primary) hypertension DX:Essential (primary) hypertension Family History Relation Name Status Comments Sister 4 Alive Social History Tobacco Use Types Packs/Day Years Used Date Smoking Tobacco: Former Cigarettes 0 Q uit: 07/18/2020 Tobacco Cessation:Counseling Given: Not Answered Comments Unknown Sex and Gender Information Value Date Recorded Sex Assigned at Female 02/02/2024 8:17 AM EST Legal Sex Female 1:22 PM EST Gender Identity Female 02/02/2024 8:17 AM EST Sexual Orientation Straight 02/02/2024 8: 17 AM EST Obstetrics History Last Filed Vital Signs Vital Sign Reading Time Taken Comments Blood Pressure 114/62 11/24/2024 2:43 PM EDT Pulse 70 11/24/2024 2:43 PM EDT Temperature 36.1 C (97 F) 11/24/2024 2:43 PM EDT Respiratory Rate 18 11/24/2024 2:43 PM EDT Oxygen Saturation 97% 11/24/2024 2:43 PM EDT Inhaled Oxygen Concentration - - Weight 80.7 kg (178 lb) 11/24/2024 2:43 PM EDT Height 157.5 cm (5' 2 ) 11/24/2024 2:43 PM EDT Body Mass Index 32.56 11/24/2024 2:43 PM EDT Plan of Treatment Upcoming Encounters Date Type Department Care Team (Late st Contact Info) Description 03/14/2025 11:00 AM EST Office Visit Pulmonology - [place] [address] [place] [phone] Tatiana Graves MD [address] [place] [phone] 04/27/2025 11:15 AM EDT Office Visit [facility] Hematology Oncology [address] [place] [phone] Maya Lundberg MD [address] [place] [address] Health Maintenance Due Date Last Done Comments Diabetes: Annual Foot Exam 12/27/1957 Diabetes: Annual Retina Eye Exam 12/27/1957 Hepatitis A Vaccines (1 of 2 - Risk 2-dose series) 12/27/1966 Falls Risk Assessment 01/23/2022 Hepatitis C Screening 01/23/2022 Medicare Annual Wellness Visit 01/23/2022 Osteoporosis Screening (Bone Density Screening) 01/23/2022 Social Influencers of Health Screening 01/23/2022 Diabetes: Blood Sugar Control Test (HGBA1C) 02/02/2022 03/03/2020 Depression Screening 02/18/2024 Diabetes: Annual Urine Albumin-Creatinine Ratio (uACR) 07/20/2024 07/21/2023, 05/24/2021, 05/24/2021, Additional history exists Influenza Vaccine (#1) 2024 , 01/31/2023, 11/09/2019, Additional history exists COVID-19 Vaccine (9 - Pfizer risk season) 2025 11/02/2024, 10/20/2023, 11/19/2022, Additional history exists Diabetes: Annual GFR (Glomerular Filtration Rate) 11/03/2025 11/03/2024, 10/26/2024, 09/22/2024, Additional history exists Hypertension/CHF/CAD Annual BMP Blood Test 11/03/2025 11/03/2024, 10/26/2024, 09/22/2024, Additional history exists DTaP,Tdap,and Td Vaccines (2 - Td or Tdap) 07/09/2028 07/09/2018 Cholesterol Screening (Lipid Panel) 07/20/2029 07/20/2024, 05/09/2022 Hepatitis B Vaccines Completed 05/26/2009, 01/26/2009, 12/13/2008 Zoster Vaccines Completed 11/07/2020, 05/20, 11/09/2019, Additional history exists Pneumococcal Vaccine: 50+ Years Completed 09/27/2021, 01/14/2017, 09/05/2015 RSV Immunization Adult Patients Completed 12/17/2023 HIB Vaccines Aged Out No longer eligi ble based on patient's age to complete this topic HPV Vaccines Aged Out No longer eligi ble based on patient's age to complete this topic IPV Vaccines Aged Out No longer eligi ble based on patient's age to complete this topic MMR Vaccines Aged Out No longer eligi ble based on patient's age to complete this topic Meningococcal ACWY Vaccine Aged Out N o longer eligible based on patient's age to complete this topic Meningococcal B Vaccine Aged Out No l onger eligible based on patient's age to complete this topic RSV Immunization Patients Under 20 months Aged Out No longer eligible based on patient's age to complete this topic Varicella Vaccines Aged Out No longer eligible based on patient's age to complete this topic Medical Devices Implanted Type Area Electric Transfer Operator Device Identifier Shelf Expiration Date Model / Serial / Lot Sponge Surgifoam Gel 12 X 7mm - [id number] - [id number] Implanted:Qty: 1 on 05/27/2024 by Logan Chavarria MD at [facility] Hemostasis N/A: Liver [employer] [id number] 01/13/20281971 / 1971 / Procedures Procedure Name Priority Date/Time Associated Diagnosis Comments BASIC METABOLIC PANEL Routine 09/22/2024 5:13 AM EDT Essential (primary) hypertension LIPID PANEL Routine 05/09/2022 HM URINE ALBUMIN CREATININE RATIO Routine 05/24/2021 HEMOGLOBIN A1C Routine 03/03/2020 from Last 3 Months or Most Recently Relevant to Health Maintenance Results * Lipid panel (05/09/2022) Triglycerides 0 mg/dL Cholesterol 0 mg/dL Comment:unable to view resul ts HDL 0 mg/dL LDL Cholesterol 0 mg/dL Blood Venous blood specimen / Unknown Result [facility] Historical Provider LAB BLOOD ORDERABLES Lynsey l Result * HM Urine Albumin Creatinine Ratio (05/24/2021) HM Urine Albumin Creatinine Ratio Abstracted Historical Provider HEALTH MAINTENANCE Final Result * Hemoglobin A1c (03/03/2020) Hemoglobin A1C 0.0 % Comment:unable to view resul ts Blood Venous blood specimen / Unknown [facility] Provider LAB BLOOD ORDERABLES Lynsey l Result from Last 3 Months or Most Recently Relevant to Health Maintenance Insurance [employer] MEDICARE ADVANTAGE [place]ICAID [place] Advance Directives Documents on File Type Date Recorded Patient Nuisance Wildlife Specialist Expl anation Health Care Decision (hx) 08/28/2020 AD DUMONT DIRECTIVE Health Care Decision (hx) 08/28/2020 AD DUMONT DIRECTIVE Health Care Decision (hx) 08/28/2020 AD DUMONT DIRECTIVE Health Care Decision (hx) 08/28/2020 AD DUMONT DIRECTIVE Health Care Decision (hx) 08/28/2020 AD DUMONT DIRECTIVE Health Care Decision (hx) 08/28/2020 AD DUMONT DIRECTIVE Health Care Decision (hx) 08/28/2020 AD DUMONT DIRECTIVE Health Care Decision (hx) 08/28/2020 AD DUMONT DIRECTIVE Health Care Decision (hx) 08/28/2020 AD DUMONT DIRECTIVE Health Care Decision (hx) 08/28/2020 AD DUMONT DIRECTIVE Health Care Decision (hx) 08/28/2020 AD DUMONT DIRECTIVE Health Care Decision (hx) 08/28/2020 AD DUMONT DIRECTIVE Health Care Decision (hx) 08/28/2020 AD DUMONT DIRECTIVE Health Care Decision (hx) 08/28/2020 AD DUMONT DIRECTIVE Health Care Decision (hx) 08/28/2020 AD DUMONT DIRECTIVE Health Care Decision (hx) 08/23/2020 AD DUMONT DIRECTIVE Health Care Decision (hx) 08/23/2020 AD DUMONT DIRECTIVE Health Care Decision (hx) 08/23/2020 AD DUMONT DIRECTIVE Health Care Decision (hx) 08/23/2020 AD DUMONT DIRECTIVE Health Care Decision (hx) 08/23/2020 AD DUMONT DIRECTIVE Health Care Decision (hx) 08/23/2020 AD DUMONT DIRECTIVE Health Care Decision (hx) 08/23/2020 AD DUMONT DIRECTIVE Health Care Decision (hx) 08/23/2020 AD DUMONT DIRECTIVE Health Care Decision (hx) 08/23/2020 AD DUMONT DIRECTIVE Health Care Decision (hx) 08/23/2020 AD DUMONT DIRECTIVE Health Care Decision (hx) 08/23/2020 AD DUMONT DIRECTIVE Health Care Decision (hx) 08/23/2020 AD DUMONT DIRECTIVE Health Care Decision (hx) 08/23/2020 AD DUMONT DIRECTIVE Health Care Decision (hx) 08/23/2020 AD DUMONT DIRECTIVE Health Care Decision (hx) 08/23/2020 AD DUMONT DIRECTIVE Care Teams Crusher Setter Relationship Specialty Start Date End Date Steven Jones NP [address] [place], [place] PCP - General 09/11/23
--- OUTSIDE RECORDS SUMMARY | 2025-01-21 19:40 | XMS_ITS | Encounter Summary ---
Author Organization [facility] Address [address] [place] [address] Care Team Providers Care Manager Assurance Name Role Phone Steven Jones NP Primary Care Provider +1- [phone] Encounter Details Date Type Department Care Team (Late st Contact Info) Description 09/04/2024 Lab Requisition [facility] - Main Lab [address] [facility] [place] [address] Fartun Ho MD [address] [place], [place] [id number] Hypokalemia Social History Tobacco Use Types Packs/Day Years [...] 11:00 AM EST Office Visit Pulmonology - [place] [address] [place] [address] Tatiana Graves MD [address] [place] [address] 04/27/2025 11:15 AM EDT Office Visit [facility] Hematology Oncology [address] [place] [phone] Maya Lundberg MD [address] [place] [address] documented as of this encounter Procedures Procedure Name Priority Date/Time Associated Diagnosis Comments MAGNESIUM Routine 09/04/2024 6:50 AM EDT Hypokalemia BASIC METABOLIC PANEL Routine 09/04/2024 6:50 AM EDT Hypokalemia documented in this encounter Results * (ABNORMAL) Magnesium (09/04/2024 6:50 AM EDT) Magnesium 1.5(L) 1.9 - 2.6 mg/dL LAB CHEMISTRY METHOD 09/04/2024 9:35 AM EDT [facility] Blood Venous blood specimen / Unknown Venipuncture / Unknown 09/04/2024 6:50 AM EDT 09/04/2024 8:55 AM EDT us Fartun Ho MD LAB BLOOD ORDERABLES Final Resul t [facility] [address] [place] [address], * (ABNORMAL) Basic metabolic panel (09/04/2024 6:50 AM EDT) Sodium 138 133 - 145 mmol/L LAB CHEMISTRY METHOD 09/04/2024 9:38 AM EDT [facility] Potassium 3.6 3.5 - 5.5 mmol/L LAB CHEMISTRY METHOD 09/04/2024 9:38 AM EDT [facility] Chloride 95(L) 96 - 110 mmol/L LAB CHEMISTRY METHOD 09/04/2024 9:38 AM [facility] CO2 38(H) 21 - 32 mmol/L LAB CHEMISTRY METHOD 09/04/2024 9:38 AM [facility] Anion Gap 5 3 - 11 LAB CHEMISTRY METHOD 09/04/2024 9:38 AM [facility] Glucose 141(H) 70 - 100 mg/dL LAB CHEMISTRY METHOD 09/04/2024 9:38 AM [facility] BUN 18 5 - 25 mg/dL LAB CHEMISTRY METHOD 09/04/2024 9:38 AM [facility] Creatinine 1.35(H) 0.50 - 1.10 mg/dL LAB CHEMISTRY METHOD 09/04/2024 9:38 AM [facility] eGFR 41(L) >=60 mL/min/1. 73m2 LAB CHEMISTRY METHOD 09/04/2024 9:38 AM [facility] Comment:Calculation based on the Chronic Kidney Disease Epidemiology Collaboration (CKD-EPI) equation refit without adjustment for race. BUN/Creatinine Ratio 13.3 LAB CHEMISTRY METHOD 09/04/2024 9:38 AM [facility] Calcium 9.4 8.5 - 10.5 mg/dL LAB CHEMISTRY METHOD 09/04/2024 9:38 AM [facility] Blood Venous blood specimen / Unknown Venipuncture / Unknown 09/04/2024 6:50 AM EDT 09/04/2024 8:55 AM EDT us Fartun Ho MD LAB BLOOD ORDERABLES Final Resul t [facility] [address] [place] [address], documented in this encounter Visit Diagnoses Diagnosis Hypokalemia Hypopotassemia documented in this encounter Care Teams Manager Assurance Relationship Specialty Start Date End Date Steven Jones NP [address] [place] [phone] (Work) PCP - General 09/11/23 documented as of this encounter
--- OUTSIDE RECORDS SUMMARY | 2025-01-21 19:40 | XMS_ITS | Encounter Summary ---
Author Organization [facility] Address [address] [facility] [address] [place] [address] Phone Care Team Providers Care Component Prep Operator Name Role Phone Maya Lundberg MD Unavailable Tatiana Graves MD Unavailable [phone] Steven Jones CNP Primary Care Provider [phone] Ventura Merritt DPM Unavailable [phone] Evi Rock MD, MPH Unavailable [phone] Enedina Heller MD Unavailable Magdiel Acosta MD Unavailable [phone] Jimmie Renee MD Unavailable [email or web address] Encounter Details Date Type Department Care Team (Late st Contact Info) Description 12/27/2024 Orders Only [facility] [address] [place] [address] Richard Edward MD [address] [place] [address], [address] [place], [place] [phone] [email or web address] Chronic kidney disease (CKD) stage G3a/A1, moderately decreased glomerular filtration rate (GFR) between 45-59 mL/min/1.73 square meter and albuminuria creatinine ratio less than 30 mg/g (Primary Dx); Acute renal failure, unspecified acute renal failure type; Hypopotassemia Social History Tobacco Use Types Packs/Day Years [...] Description 02/28/2025 9:20 AM EST Office Visit [facility] Endocrinology [address] [phone] Jayne Kelley PA-C [address] [place] [address] 06/06/2025 11:00 AM EDT Office Visit [facility] Endocrinology [address] [place] [phone] Jayne Kelley PA-C [address] [place] [address] 06/14/2025 11:30 AM EDT Office Visit [address] [place] [address] Steven Jones, TOOL AND EQUIPMENT RENTAL CLERK [address] [place] [address], [address] [place] [address] 09/05/2025 11:00 AM EDT Office Visit [facility] Endocrinology [address] [place] [phone] Portia Clifford MD [address] [place] [address] 12/19/2025 11:30 AM EST Office Visit [address] [place] [address] Steven Jones, TOOL AND EQUIPMENT RENTAL CLERK [address] [place] [address], [address] [place] [address] documented as of this encounter Results * (ABNORMAL) Microalbumin/Creatinine Ratio, Random Urine (12/27/2024 12:11 PM EST) Creatinine, Urine 66 mg/dL 12/27/2024 9:26 PM EST [facility] Microalbumin, Urine 6.3(H) <2.0 mg/dL 12/27/2024 9:26 PM [facility] MALB/CRE 95.5(H) <30.0 mg/g Cre 12/27/2024 9:26 PM [facility] Urine (Urine, Voided) Non-Blood Collection / Unknown 12/27/2024 12:11 PM EST 12/27/2024 12:11 PM EST [facility] - 12/27/2024 9:26 PM EST The reference interval(s) are unavailable for this specimen type. Comparison of this result with other laboratory results, such as the concentration in the blood, serum, or plasma, is recommended. The test result should be integrated into the clinical context for interpretation. us Richard Edward MD LAB URINE ORDERABLES Fin al Result [address] [address] * (ABNORMAL) Urinalysis with Sediment (12/27/2024 12:11 PM EST) Color Yellow Yellow 12/27/2024 9:45 PM [facility] Clarity Clear Clear 12/27/2024 9:45 PM [facility] Glucose Negative Negative 12/27/2024 9:45 PM [facility] Bilirubin Urine Negative Negative 9:45 PM [facility] Ketone Urine Negative Negative 12/27/2024 9:45 PM [facility] Specific Cocoa 1.015 1.001 - 1.035 12/27/2024 9:45 PM [facility] Blood Negative Negative 12/27/2024 9:45 PM [facility] pH 7.0 5.0 - 8.0 12/27/2024 9:45 PM [facility] Protein 1+(A) Negative 12/27/2024 9:45 PM [facility] Nitrites Negative Negative 12/27/2024 9:45 PM [facility] Leukocyte Esterase 1+(A) Negative 12/27/2024 9:45 PM [facility] Urobilinogen Negative Negative 12/27/2024 9:45 PM [facility] RBC 0-2 0 - 2 /hpf 12/27/2024 9:45 PM [facility] WBC 6-9 0 - 9 /hpf 12/27/2024 9:45 PM [facility] Squamous Epithelial Cells >100(A) Not Present /hpf 12/27/2024 9:45 PM [facility] Mucus Present(A) Not Present /hpf 12/27/2024 9:45 PM [facility] Bacteria 2+(A) Negative /hpf 12/27/2024 9:45 PM [facility] Urine (Urine, Voided) Non-Blood Collection / Unknown 12/27/2024 12:11 PM EST 12/27/2024 12:11 PM EST [facility] - 12/27/2024 9:45 PM EST The time from collection to resulting exceeded 8 hours. If the specimen was collected in a container without preservative, some parameters may be affected. us Richard Edward MD LAB URINE ORDERABLES Fin al Result Performing Organization Address City/[facility]/ZIP Co de Phone Number [address] [address] * Iron and Total Iron Binding Capacity (Iron/TIBC) (12/27/2024 11:47 AM EST) Iron 69 28 - 170 ug/dL 12/27/2024 9:20 PM [facility] Total Iron-Binding Capacity (TIBC) 304 220 - 460 ug/dL 12/27/2024 9:20 PM [facility] Transferrin Saturation 23 14 - 50 % 12/27/2024 9:20 PM [facility] Blood (Blood) Venipuncture / Unknown 12/27/2024 11:47 AM EST 12/27/2024 11:47 AM EST Richard Edward MD LAB BLOOD BKR ORDERABLES Final Result Performing Organization Address City/[facility]/ZIP Co de Phone Number [address] [address] * Ferritin (12/27/2024 11:47 AM EST) Pathologist [facility] Ferritin 52 30 - 150 ug/L 12/27/2024 9:20 PM [facility] Comment:The lower limit of t he reference range has been increased to 30 ug/L for all adults to reflect a physiologically sufficient level. See Document Link for additional information. Blood (Blood) Venipuncture / Unknown 12/27/2024 11:47 AM EST 12/27/2024 11:47 AM EST Richard Edward MD LAB BLOOD BKR ORDERABLES Final Result [address] [address] * Parathyroid Hormone (PTH) (12/27/2024 11:47 AM EST) [facility] Parathyroid Hormone (PTH) 45 15 - 65 pg/mL 12/27/2024 9:11 PM [facility] Blood (Blood) Venipuncture / Unknown 12/27/2024 11:47 AM EST 12/27/2024 11:47 AM EST Richard Edward MD LAB BLOOD BKR ORDERABLES Final Result [address] [address] * (ABNORMAL) CBC (12/27/2024 11:47 AM EST) Pathologist [facility] WBC 16.09(H) 4.00 - 11.00 K/uL 12/27/2024 8:41 PM [facility] RBC 4.57 4.00 - 5.20 M/uL 12/27/2024 8:41 PM [facility] Hemoglobin 12.8 12.0 - 16.0 g/dL 12/27/2024 8:41 PM [facility] Hematocrit 39.9 36.0 - 46.0 % 12/27/2024 8:41 PM [facility] MCV 87.3 80.0 - 100.0 fL 12/27/2024 8:41 PM [facility] MCH 28.0 27.0 - 31.0 pg 12/27/2024 8:41 PM [facility] MCHC 32.1 32.0 - 36.0 g/dL 12/27/2024 8:41 PM [facility] PLT 235 150 - 450 K/uL 12/27/2024 8:41 PM [facility] MPV 10.7 8.4 - 12.0 fL 12/27/2024 8:41 PM [facility] RDW-CV 19.4(H) 11.5 - 14.5 % 12/27/2024 8:41 PM [facility] Absolute NRBC 0.00 <=0.00 K cells/uL 12/27/2024 8:41 PM [facility] NRBC 0.0 <=0.0 /100 WBCs 12/27/2024 8:41 PM [facility] Blood (Blood) Venipuncture / Unknown 12/27/2024 11:47 AM EST 12/27/2024 11:47 AM EST Richard Edward MD LAB BLOOD BKR ORDERABLES Final Result Performing Organization Address City/State/[facility] Co de Phone Number [facility] [address] [place] [address] * (ABNORMAL) Renal Panel (12/27/2024 11:47 AM EST) Sodium 140 136 - 145 mmol/L 12/27/2024 9:48 PM [facility] Potassium 2.6(LL) 3.4 - 5.1 mmol/L 12/27/2024 9:48 PM [facility] Chloride 106 98 - 107 mmol/L 12/27/2024 9:48 PM [facility] CO2 18(L) 20 - 31 mmol/L 12/27/2024 9:48 PM [facility] Anion Gap 16 3 - 17 mmol/L 12/27/2024 9:48 PM [facility] BUN 35(H) 6 - 23 mg/dL 12/27/2024 9:48 PM [facility] Creatinine 2.20(H) 0.50 - 1.00 mg/dL 12/27/2024 9:48 PM [facility] eGFR 23(L) >59 mL/min/1.7 3m2 12/27/2024 9:48 PM [facility] Comment:Estimated glomerular filtration rate calculated using the CKD-EPI refit equation. Glucose 199(H) 70 - 99 mg/dL 12/27/2024 9:48 PM EST [facility] Calcium 9.3 8.5 - 10.5 mg/dL 12/27/2024 9:48 PM [facility] Phosphorus 2.9 2.5 - 4.5 mg/dL 12/27/2024 9:48 PM [facility] Albumin 4.0 3.5 - 5.2 g/dL 12/27/2024 9:48 PM [facility] Blood (Blood) Venipuncture / Unknown 12/27/2024 11:47 AM EST 12/27/2024 11:47 AM EST us Richard Edward MD LAB BLOOD BKR ORDERABLES Final Result Performing Organization Address City/State/[facility] Co de Phone Number [facility] [address] [place] [address] documented in this encounter Visit Diagnoses Diagnosis Chronic kidney disease (CKD) stage G3a/A1, moderately decreased glomerular filtration rate (GFR) between 45-59 mL/min/1.73 square meter and albuminuria creatinine ratio less than 30 mg/g- Primary Acute renal failure, unspecified acute renal failure type Hypopotassemia documented in this encounter Additional Health Concerns Assessment Noted Time PHQ-9 Depression Total Score: 7 12/02/19 25 4:10 PM EDT PHQ-2 Depression Total Score: 0 12/15/19 25 1:31 PM EDT documented as of this encounter Care Teams Component Prep Operator Relationship Specialty Start Date End Date Steven Jones CNP [address] [place] [address], [address] [place] [address] PCP - General Adult Health 07/21/23 Maya Lundberg MD [email or web address] Medical Oncology 05/17/22 Tatiana Graves MD [address] [place] [address] Pulmonary Disease 08/02/22 Ventura Merritt DPM [address] [place] [address] Podiatry 07/21/23 Evi Rock MD, MPH [address] [place] [address], [address] [place] [address] [email or web address] Rheumatology 07/21/23 Enedina Heller MD [address] [place] [address] Thoracic Surgery 07/21/23 Magdiel Acosta MD [address] [place] [address], [address] [place] [address] Internal Medicine 07/21/23 Jimmie [place] [address] [email or web address] Pulmonary Disease 09/08/23 documented as of this encounter Additional Source Comments The information contained in this document represents components of the legal health record. It is not the complete legal health record.[facility]
--- OUTSIDE RECORDS SUMMARY | 2025-01-21 19:40 | XMS_ITS | Encounter Summary ---
Author Organization [facility] Address [address] [facility] [address] [place] [address] Phone Care Team Providers Care Ed Special Education Teacher Name Role Phone Maya Lundberg MD Unavailable Tatiana Graves MD Unavailable [phone] Steven Jones CNP Primary Care Provider [phone] Ventura Merritt DPM Unavailable [phone] Evi Rock MD, MPH Unavailable Enedina Heller MD Unavailable Magdiel Acosta MD Unavailable Jimmie Renee MD Unavailable [email or web address] Reason for Visit * Reason Onset Date Comments Paper work 01/19/2025 Encounter Details Date Type Department Care Team (Late st Contact Info) Description 01/19/2025 Telephone [facility] Endocrinology [address] [place] [address] Portia Clifford MD [address] [place] [phone] [email or web address] Paper work Social History Tobacco Use Types Packs/Day Years [...] as of this encounter Progress Notes * Stephanie Ramos MA - 01/21/2025 4:10 PM EST Signed scanned and faxed * Portia Clifford MD - 01/21/2025 3:26 PM EST Signed yesterday, put in outbox * Stephanie Ramos MA - 01/20/2025 3:16 PM EST Placed in inbox for signature * Ami Wilkinson - 01/20/2025 2:38 PM EST Jaimee from [employer] calls to request a script for CGM & chart notes within the last 6 months faxed to [phone]. The script must have MD signature & date. Also, the notes must have a Dx code , meds list & usage. Looks like patient was seen last on 12/27/[address] Clifford. * Richard Stephaniediego Robertson MA - 01/19/2025 2:53 PM EST Pt hasn't been seen in over a year this will have to wait until upcoming appointment to be signed with most up to date office notes * Bess Levy - 01/19/2025 1:27 PM EST [employer] called in. They faxed over some paper work for a glucose monitor. I am not sure if this is legit or not due to all the medicare scams. I let them know I would send a message out and we will take care of it lucien. Please advise thank you. Paper work in media tab. [facility] Clinical Mental Health Counselor (Please do not reply to this user; this inbox is not monitored.) Thank you. documented in this encounter Plan of Treatment Upcoming Encounters Date Type Department Care Team (Late st Contact Info) Description 02/28/2025 9:20 AM EST Office Visit [facility] Endocrinology [address] [place] [phone] Jayne Kelley PA-C [address] [place] [address] 06/06/2025 11:00 AM EDT Office Visit [facility] Endocrinology [address] [phone] Jayne Kelley PA-C [address] [place] [address] 06/14/2025 11:30 AM EDT Office Visit [address] [place] [address] Steven Jones, RADIOLOGICAL TECHNICIAN [address] [place] [address], [address] [place] [address] 09/05/2025 11:00 AM EDT Office Visit [address] [phone] Portia Clifford MD [address] [place] [address] 12/19/2025 11:30 AM EST Office Visit [address] [place] [address] Steven Jones, RADIOLOGICAL TECHNICIAN [address] [place] [address], [address] [place] [address] documented as of this encounter Visit Diagnoses Not on filedocumented in this encounter Additional Health Concerns Assessment Noted Time PHQ-9 Depression Total Score: 7 12/02/19 25 4:10 PM EDT PHQ-2 Depression Total Score: 0 12/30/19 25 4:35 PM EST documented as of this encounter Care Teams Ed Special Education Teacher Relationship Specialty Start Date End Date EsperanzaSteven husain CNP [address] [place] [address], [address] [place] [address] [email or web address] PCP - General Adult Health 07/21/23 Maya [email or web address] [email or web address] 05/17/22 Tatiana Graves MD [address] [place] [address] Pulmonary Disease 08/02/22 Ventura Merritt DPM [address] [place] [address] Podiatry 07/21/23 Evi Rock MD, MPH [address] [place] [address], [address] [place] [address] [email or web address] Rheumatology 07/21/23 Enedina Heller MD [address] [place] [address] Thoracic Surgery 07/21/23 Magdiel Acosta MD [address] [place] [address], [address] [place] [address] [email or web address] Internal Medicine 07/21/23 Jimmie Renee MD [address] [place] [address] [email or web address] Pulmonary Disease 09/08/23 documented as of this encounter Additional Source Comments The information contained in this document represents components of the legal health record. It is not the complete legal health record.[facility]
--- OUTSIDE RECORDS SUMMARY | 2025-01-21 19:40 | XMS_ITS | Clinical Summary ---
Author Organization [facility] Address [address] [place] [address] Phone Care Team Providers Care Electric Sign Wirer Name Role Phone Seda Jonesoralia LESLI Primary Care Provider [phone] Medications magnesium oxide (MAG-OX) 400 MG tablet Take 1 tablet (400 mg total) by mouth 1 (one) time each day 30 tablet 11 01/12/2025 Active potassium chloride (KLOR-CON M20) 20 MEQ CR tablet Take 1 tablet (20 mEq total) by mouth in the morning and 1 tablet (20 mEq total) in the evening. Do not crush or chew. 60 tablet 11 01/12/2025 Active Encounters Date Type Department Care Team Description 01/19/2025 Telephone [facility] [address] [place] [address] [place] 01/12/2025 1:15 PM EST Office Visit [facility] [address] [place] [address] Richard Edward MD Stage 3a chronic kidney disease (HCC) (Primary Dx); Acute nontraumatic kidney injury, not otherwise specified (HCC) 2024 Orders Only [facility] [address] [place] [address] [place] Stage 3a chronic kidney disease (HCC) (Primary Dx); Hypokalemia; Albuminuria, not otherwise specified 12/16/2024 2:00 PM EDT Office Visit [facility] [address] [place] [address] Richard Edward MD Stage 3a chronic kidney disease (HCC) (Primary Dx); Acute nontraumatic kidney injury, not otherwise specified (HCC); Hypokalemia 12/13/2024 Telephone [facility] [address] [place] [address] [place] 12/06/2024 Telephone [facility] [address] [place] [address] [place] 12/03/2024 Orders Only [facility] [address] [place] [address] Richard Edward MD Stage 3a chronic kidney disease (HCC) (Primary Dx) 11/19/2024 1:45 PM EDT Office Visit [facility] [address] [place] [address] Richard Edward MD Stage 3a chronic kidney disease (HCC) (Primary Dx); Acute nontraumatic kidney injury, not otherwise specified (HCC) 11/19/2024 Documentation Only [facility] [address] [place] [address] Larisa Sanders MA 11/15/2024 Documentation Only [facility] [address] [place] [address] Larisa Sanders MA 11/15/2024 Documentation Only [facility] [address] [place] [address] Larisa Sanders MA from Last 3 Months Social History Tobacco Use Types Packs/Day Years Used Date Smoking Tobacco: Never Assessed Comments Unknown Sex and Gender Information Value Date Recorded Sex Assigned at Not on file Legal Sex Female 1:00 PM EDT Gender Identity Not on file Sexual Orientation Not on file Last Filed Vital Signs Vital Sign Reading Time Taken Comments Blood Pressure 100/68 11/19/2024 2:05 PM EDT Pulse - - Temperature - - Respiratory Rate - - Oxygen Saturation - - Inhaled Oxygen Concentration - - Weight - - Height - - Body Mass Index - - Plan of Treatment Upcoming Encounters Date Type Department Care Team (Late st Contact Info) Description 02/14/2025 1:15 PM EST Office Visit [facility] [place], [address] [place] [phone] Richard Edward MD [address] [place] [address] Health Maintenance Due Date Last Done Comments Hepatitis B Vaccine (1 of 3 - Risk 3-dose series) 2007 05/26/2009, 01/26/2009, 12/13/2008 Diabetes: Hemoglobin A1C 11/15/2024 03/03/2020 Diabetes: Ophthalmology Exam 11/15/2024 Diabetes: Pedal Pulse Checked 11/15/2024 Diabetes: Sensory Foot Exam 11/15/2024 Diabetes: Visual Foot Exam 11/15/2024 Pneumococcal Vaccine: 50+ Years Completed 09/27/2021, 01/14/2017, 09/05/2015 Influenza Vaccine Completed 12/14/2024, , 12/09/2018, Additional history exists Insurance Medicaid [place] [employer] Medicare Care Teams Electric Sign Wirer Relationship Specialty Start Date End Date Steven Jones NP [address] [place] [address], [address] [place] [address] PCP - General Nurse Practitioner 11/15/24
--- OUTSIDE RECORDS SUMMARY | 2025-01-21 19:40 | XMS_ITS ---
Author Name [facility] Organization Unknown Results Test Name/Text Value Interpretation Date Range Source GLUCOSE DC GLUCOMTR MCNC 211.0 mg/dL Above high normal 09/11/2023 70 - 199 CTTHSFRAN History of Medication Use Medication Directions Dispensed Refills Start Date End Date Status acetaminophen (TYLENOL) tablet 650 mg 650 mg, Oral, Every 6 hours PRN, mild pain (1-3), Starting on Mckenna 09/11/23 at 1533, PACU/Phase 1 4 active dexamethasone (DECADRON) injection 4 mg 4 mg, Intravenous, Once as needed, other, nausea, vomiting, Starting on Mckenna 09/11/23 at 1533, For 1 dose, PACU/Phase 1Administer 2nd unless given in the OR if zofran is ineffective and patient continues to be symptomatic. 4 active dimenhyDRINATE (DRAMAMINE) injection 25 mg 25 mg, Intravenous, Once as needed, nausea, Nausea, vomiting, Starting on Mckenna 09/11/23 at 1533, For 1 dose, PACU/Phase 1Administer 3rd unless given in the OR if zofran and decadron are ineffective and patient continues to be symptomatic. INTRAMUSCULAR: No dilution required INTRAVENOUS: Must dilute 4 active HYDROmorphone (DILAUDID) injection 0.2 mg 0.2 mg, Intravenous, Every 15 min PRN, moderate pain (4-6), Starting on Mckenna 09/11/23 at 1533, PACU/Phase 1FOR PACU USE ONLY. If unable to take by mouth. Do not exceed 2 mg. 4 active HYDROmorphone (DILAUDID) injection 0.5 mg 0.5 mg, Intravenous, Every 15 min PRN, severe pain (7-10), Starting on Mckenna 09/11/23 at 1533, PACU/Phase 1FOR PACU USE ONLY. If unable to take by mouth. Do not exceed 2 mg. Administer IV push over 2-3 minutes. 4 active meperidine (DEMEROL) 25 MG/ML injection 12.5 mg 12.5 mg, Intravenous, Every 30 min PRN, shivering not due to postoperative hypothermia., Starting on Mckenna 09/11/23 at 1533, For 2 doses, PACU/Phase 1May repeat x 1 in 30 minutes. 4 active ondansetron (ZOFRAN) injection 4 mg 4 mg, Intravenous, Once as needed, nausea, vomiting, Starting on Mckenna 09/11/23 at 1533, For 1 dose, PACU/Phase 1Administer 1st unless given in OR, then administer dexamethasone 4 active orphenadrine (NORFLEX) injection 30 mg 30 mg, Intravenous, Once as needed, muscle spasms, for musculoskeletal pain, to achieve pain scale less than or equal to 4, Starting on Mckenna 09/11/23 at 1533, For 1 dose, PACU/Phase 1 4 active oxyCODONE (ROXICODONE) 5 MG immediate release tablet 5 mg 5 mg, Oral, Every 4 hours PRN, moderate pain (4-6), achieve pain scale less than or equal to 4, Starting on Mckenna 09/11/23 at 1533, For 2 doses, PACU/Phase 1Give when patient is able to take PO. 4 active traMADol (ULTRAM) 50 MG tablet Take 50 mg by mouth every 6 (six) hours as needed for pain. 1 active allopurinol (ZYLOPRIM) 300 MG tablet Take 1 tablet (300 mg total) by mouth daily. active amLODIPine (NORVASC) tablet 2.5 mg Take 1 tablet (2.5 mg total) by mouth daily. active atorvastatin (LIPITOR) tablet 80 mg Take 1 tablet (80 mg total) by mouth daily. active dulaglutide (Trulicity) 3 MG/0.5ML subcutaneous pen-injector Inject under the skin once a week. active DULoxetine (CYMBALTA) DR capsule 30 mg Take 1 capsule (30 mg total) by mouth every night at bedtime. active Euajgttpfgj-Dirzjkyex-Gn lant (Trelegy Ellipta) 100-62.5-25 MCG/INH AEPB Inhale into the lungs every night at bedtime. active gabapentin (NEURONTIN) 300 MG capsule Take by mouth 2 (two) times a day. 300mg in AM and 600mg in PM active hydroCHLOROthiazide (HYDRODIURIL) tablet 25 mg Take 1 tablet (25 mg total) by mouth daily. active Insulin Aspart (NOVOLOG IJ) Inject as directed 3 (three) times a day with meals. 09/05/2023 Pt using 's insulin, as per sliding scale; pt unable to get Trulicity and has not seen new PCP yet active omeprazole (PriLOSEC) 20 MG capsule Take 1 capsule (20 mg total) by mouth daily. active vitamin B-12 (CYANOCOBALAMIN) 100 MCG tablet Take 0.5 tablets (50 mcg total) by mouth daily. active Allergies Allergen Reaction Severity Comment Documented Date Source Statu s SULFA ANTIBIOTICS 10/17/2020 CTTHSFRAN a ctive LISINOPRIL CTTHSFRAN Problems Problem Status Onset Date Problem Type Date of Resoluti on Source Pain active EncounterDiagnosisAct CTTHSFRAN Lung nodule active 2023-08-15 ProblemAct CTTHSF RAN Encounters Encounter Type Encounter Reason Primary Diagnosis Location Date Ambulatory Pain, unspecified Pain, unspecified [facility] 09/11/2023 Care Team Organization Name Specialty Phone Email Start Date End Da te [facility] JOHNATHON LOPEZ Primary Care 08/15/2023
--- OUTSIDE RECORDS SUMMARY | 2025-01-21 19:40 | XMS_ITS | Encounter Summary ---
Author Organization [facility] Address [address] [place] [address] Care Team Providers Care Beef Grader Name Role Phone Steven Jones NP Primary Care Provider [phone] Encounter Details Date Type Department Care Team (Late Contact Info) Description 09/10/2024 Lab Requisition [facility] - Main Lab [address] [facility] [place] [address] Fartun Ho MD [address] [place], [place] [id number] Urinary tract infection, site not specified Social History Tobacco Use Types Packs/Day Years [...] 11:00 AM EST Office Visit Pulmonology - [place] [address] [facility] [address] [place] [address] Tatiana Graves MD [address] [place] [address] 04/27/2025 11:15 AM EDT Office Visit [facility] Hematology Oncology [address] [place] [phone] Maya Lundberg MD [address] [place] [address] documented as of this encounter Procedures Procedure Name Priority Date/Time Associated Diagnosis Comments URINALYSIS WITH REFLEX MICROSCOPIC Routine 09/10/2024 12:00 AM EDT Urinary tract infection, site not specified URINALYSIS WITH REFLEX MICROSCOPIC Routine 09/10/2024 12:00 AM EDT Urinary tract infection, site not specified CULTURE URINE Routine 09/10/2024 12:00 AM EDT Urinary tract infection, site not specified documented in this encounter Results * (ABNORMAL) Urinalysis with reflex microscopic (09/10/2024 12:00 AM EDT) Specific [place] Urine 1.015 1.003 - 1.030 LAB URINALYSIS - AUTOMATED METHOD 09/10/2024 9:38 AM [facility] pH, Urine 5.5 5.0 - 8.0 pH LAB URINALYSIS - AUTOMATED METHOD 09/10/2024 9:38 AM [facility] Leukocytes, Urine Moderate(A) Negative LAB URINALYSIS - AUTOMATED METHOD 09/10/2024 9:38 AM [facility] Nitrite, Urine Negative Negative LAB URINALYSIS - AUTOMATED METHOD 09/10/2024 9:38 AM [facility] Protein, Urine Negative <=Trace mg/dL LAB URINALYSIS - AUTOMATED METHOD 09/10/2024 9:38 AM [facility] Glucose, Urine Negative Negative mg/dL LAB URINALYSIS - AUTOMATED METHOD 09/10/2024 9:38 AM [facility] Ketones, Urine Negative Negative mg/dL LAB URINALYSIS - AUTOMATED METHOD 09/10/2024 9:38 AM [facility] Urobilinogen , Urine 1.0 0.2 - 1.0 mg/dL LAB URINALYSIS - AUTOMATED METHOD 09/10/2024 9:38 AM [facility] Bilirubin, Urine Negative Negative LAB URINALYSIS - AUTOMATED METHOD 09/10/2024 9:38 AM [facility] Blood, Urine Negative Negative LAB URINALYSIS - AUTOMATED METHOD 09/10/2024 9:38 AM [facility] RBC, Urine 4.8(H) 0 - 4 /HPF LAB URINALYSIS - AUTOMATED METHOD 09/10/2024 9:38 AM [facility] WBC, Urine 17.2(H) 0 - 4 /HPF LAB URINALYSIS - AUTOMATED METHOD 09/10/2024 9:38 AM [facility] Squamous Epithelial, Urine >100(H) 0 - 60 /LPF LAB URINALYSIS - AUTOMATED METHOD 09/10/2024 9:38 AM [facility] Non-Squamous Epithelial, Urine 2-5 RENAL EPI /LPF LAB URINALYSIS - AUTOMATED METHOD 09/10/2024 9:38 AM [facility] Bacteria, Urine Few(A) Negative /HPF LAB URINALYSIS - AUTOMATED METHOD 09/10/2024 9:38 AM [facility] Hyaline Casts, Urine 2.8 0 - 3 /LPF LAB URINALYSIS - AUTOMATED METHOD 09/10/2024 9:38 AM [facility] Urine Urine specimen obtained by clean catch procedure / Unknown Non-blood Collection / Unknown 09/10/2024 09/10/2024 8:33 AM EDT us Fartun Ho MD LAB URINE ORDERABLES Final Resul t [facility] [address] [place] [address], [place] [phone] * Culture urine (09/10/2024 12:00 AM EDT) Culture, Urine >100,000 CFU/mL Mixed bacterial morphotypes present suggestive of possible contamination during collection. Suggest appropriate recollection if clinically indicated. 09/11/2024 10:03 AM EDT [facility] Urine Urine specimen obtained by clean catch procedure / Unknown Non-blood Collection / Unknown 09/10/2024 09/10/2024 8:33 AM EDT Fartun Ho MD LAB MICROBIOLOGY - GENERAL ORDER EFREN Final Result Performing Organization Address [facility] de Phone Number [facility] [address] [place] [address], [place] [phone] documented in this encounter Visit Diagnoses Diagnosis Urinary tract infection, site not specified documented in this encounter Care Teams Beef Grader Relationship Specialty Start Date End Date Steven Jones NP [address] [place], [place] PCP - General 09/11/23 documented as of this encounter
--- OUTSIDE RECORDS SUMMARY | 2025-01-21 19:40 | XMS_ITS | Encounter Summary ---
Author Organization [facility] Address [address] [place] [address] Care Team Providers Care Grant Writer Name Role Phone Steven Jones NP Primary Care Provider [phone] Encounter Details Date Type Department Care Team (Late Contact Info) Description 09/28/2024 Lab Requisition [facility] - Main Lab [address] [facility] [place] [address] Fartun Ho MD [address] [place], [place] [phone] Essential (primary) hypertension Social History Tobacco Use [...] 11:00 AM EST Office Visit Pulmonology - [place] [address] [facility] [address] [place] [address] Tatiana Graves MD [address] [place] [address] 04/27/2025 11:15 AM EDT Office Visit [facility] Hematology Oncology [address] [place] [phone] Maya Lundberg MD [address] [place] [address] documented as of this encounter Visit Diagnoses Diagnosis Essential (primary) hypertension Unspecified essential hypertension documented in this encounter Care Teams Grant Writer Relationship Specialty Start Date End Date Steven Jones NP [address] [place], [place] PCP - General 09/11/23 documented as of this encounter
--- OUTSIDE RECORDS SUMMARY | 2025-01-21 19:40 | XMS_ITS | Encounter Summary ---
Author Organization [facility] Address [address] [facility] [address] [place] [address] Phone Care Team Providers Care Panel Assembler Name Role Phone Maya Lundberg MD Unavailable [phone] Tatiana Graves MD Unavailable [phone] Steven Jones [employer] Primary Care Provider [phone] Ventura Merritt DPM Unavailable [phone] Evi Rock MD, MPH Unavailable Enedina Heller MD Unavailable [phone] Magdiel Acosta MD Unavailable Jimmie Renee MD Unavailable [email or web address] Reason for Visit * Reason Onset Date Comments Referral 11/10/2024 Requesting a ref erral to PT Encounter Details Date Type Department Care Team (Late st Contact Info) Description 11/10/2024 Telephone [facility] [address] [place] [address] Steven Jones CNP [address] [facility] [place] [address] Referral (Requesting a referral to PT ) Social History Tobacco Use Types Packs/Day Years Used Date Smoking Tobacco: Former Cigarettes 0 57 0 03/1961 - 03/2018 Passive Smoke Exposure: Past Smokeless Tobacco: [...] Intimate Partner Violence Answer Date R ecorded Denied Basic Needs Not on file 12/02/2023 In the past 12 months have y ou been in a relationship with a person who hurts, threatens, or tries to control you? No 12/02/2023 Worried food would run out Not on file 12/01 In the past 12 months have y ou been in a relationship with a person who hurts, threatens, or tries to control you? No 12/02/2023 Comments Unknown Sex and Gender Information Value Date Recorded Sex Assigned at Not on file Legal Sex Female 10:05 PM EDT Gender Identity Not on file Sexual Orientation Not on file documented as of this encounter Progress Notes * Little Mc RN - 11/11/2024 9:42 AM EDT Patient is still within active certification period with [facility] per plan of care recieved 10/13 * Lissy Avila - 11/10/2024 1:40 PM EDT [facility] PEN Top Smart Phrases: Referral Request 1. Name of the office where the patient has been seen/requests to be seen: [facility] 2. Reason for referral/specialist appointment and the diagnosis code: Right Knee 2A. Have you seen this provider before for this same problem? YES/NO: yes 2B. If this is a new problem, is your PCP aware of your symptoms? YES/NO: yes 3. Date of appointment(s):n/a 4. Name of specialist provider: [place] 5. NPI number to enter for referral authorization (enter n/a if not available): n/a 6. Number of visits requested for referral: n/a 7. Fax number of specialist office to send referral authorization: [phone] Central Support Top Cager (Please do not reply to this user; this inbox is not monitored.) Thank you. documented in this encounter Plan of Treatment Upcoming Encounters Date Type Department Care Team (Late st Contact Info) Description 02/28/2025 9:20 AM EST Office Visit [facility] Endocrinology [address] [phone] Jayne Kelley PA-C [address] [place] [address] 06/06/2025 11:00 AM EDT Office Visit [address] [phone] Jayne Kelley PA-C [address] [place] [phone] 06/14/2025 11:30 AM EDT Office Visit [facility] Family Medicine [address] [place] [address] [place] [address] Steven Jones, YANNA [address] [facility] [place] [address] 09/05/2025 11:00 AM EDT Office Visit [facility] Endocrinology [address] [address] Portia Clifford MD [address] [address] [email or web address] 12/19/2025 11:30 AM EST Office Visit [address] [address] Steven Jones CNP [address] [facility] [place] [address] [email or web address] documented as of this encounter Visit Diagnoses Not on filedocumented in this encounter Additional Health Concerns Assessment Noted Time PHQ-2 Depression Total Score: 2 12/02/19 24 12:36 PM EDT documented as of this encounter Care Teams Panel Assembler Relationship Specialty Start Date End Date Steven Jones CNP [address] [place] [address], [address] [place] [address] [email or web address] PCP - General Adult Health 07/21/23 Maya Lundberg MD [email or web address] 05/17/22 Tatiana Graves MD [address] [place] [address] Pulmonary Disease 08/02/22 Ventura Merritt, DPM [address] [place] [address] Podiatry 07/21/23 Evi Rock MD, MPH [address] [place] [address], [address] [place] [address] [email or web address] Rheumatology 07/21/23 Enedina Heller MD [address] [place] [address] [address] [place] [address] Thoracic Surgery 07/21/23 Magdiel Acosta MD [address] [place] [address], [address] [place] [address] [email or web address] Internal Medicine 07/21/23 Jimmie Renee MD [place] [address] [email or web address] Pulmonary Disease 09/08/23 documented as of this encounter Additional Source Comments The information contained in this document represents components of the legal health record. It is not the complete legal health record.[facility]
--- OUTSIDE RECORDS SUMMARY | 2025-01-21 19:40 | XMS_ITS | Encounter Summary ---
Author Organization [facility] Address [address] [place] [address] Care Team Providers Care Hearing Impaired Itinerant Teacher Name Role Phone Steven Jones NP Primary Care Provider [phone] Encounter Details Date Type Department Care Team (Late st Contact Info) Description 09/09/[address] [facility] - Main Lab [address] [facility] [place] [address] Fartun Ho MD [address] [place], [place] [phone] Hypokalemia Social History Tobacco Use Types Packs/Day [...] 11:00 AM EST Office Visit Pulmonology - [place] [address] [facility] [address] [place] [address] Tatiana Graves MD [address] [place] [address] 04/27/2025 11:15 AM EDT Office Visit [facility] Hematology Oncology [address] [place] [address] Maya Lundberg MD [address] [place] [address] documented as of this encounter Procedures Procedure Name Priority Date/Time Associated Diagnosis Comments CBC WITH AUTO DIFFERENTIAL Routine 09/10/2024 11:20 AM EDT Hypokalemia CBC AND DIFFERENTIAL Routine 09/10/2024 11:20 AM EDT Hypokalemia MAGNESIUM Routine 09/10/2024 4:49 AM EDT Hypokalemia BASIC METABOLIC PANEL Routine 09/10/2024 4:49 AM EDT Hypokalemia documented in this encounter Results * (ABNORMAL) CBC auto differential (09/10/2024 11:20 AM EDT) WBC 12.0(H) 4.8 - 10.8 K/mcL LAB HEMETOLOGY METHOD 09/10/2024 1:22 PM EDT [facility] RBC 3.80 3.80 - 4.80 M/mcL LAB HEMETOLOGY METHOD 09/10/2024 1:22 PM EDT [facility] Hemoglobin 11.2(L) 11.5 - 16.0 g/dL LAB HEMETOLOGY METHOD 09/10/2024 1:22 PM EDT [facility] Hematocrit 35.9 35.0 - 47.0 % LAB HEMETOLOGY METHOD 09/10/2024 1:22 PM T [facility] MCV 93.5 79.0 - 98.0 FL LAB HEMETOLOGY METHOD 09/10/2024 1:22 PM EDT [facility] MCH 29.2 27.0 - 32.0 pcg LAB HEMETOLOGY [facility] MCHC 31.2(L) 32.0 - 37.0 g/dL LAB HEMETOLOGY METHOD 09/10/2024 1:22 PM [facility] RDW 16.0(H) 11.0 - 15.0 % LAB HEMETOLOGY METHOD 09/10/2024 1:22 PM [facility] Platelets 302 130 - 400 K/mcL LAB HEMETOLOGY METHOD 09/10/2024 1:22 PM [facility] MPV 9.5 7.0 - 11.0 FL LAB HEMETOLOGY METHOD 09/10/2024 1:22 PM [facility] NRBC 0.0 <1.0 % LAB HEMETOLOGY METHOD 09/10/2024 1:22 PM [facility] NRBC Absolute 0.00 <0.10 K/mcL LAB HEMETOLOGY METHOD 09/10/2024 1:22 PM [facility] Neutrophils Relative 68.9 % LAB HEMETOLOGY METHOD 09/10/2024 1:22 PM [facility] Lymphocytes Relative 22.2 % LAB HEMETOLOGY METHOD 09/10/2024 1:22 PM [facility] Monocytes Relative 6.0 % LAB HEMETOLOGY METHOD 09/10/2024 1:22 PM [facility] Eosinophils Relative 1.9 % LAB HEMETOLOGY METHOD 09/10/2024 1:22 PM [facility] Basophils Relative 0.3 % LAB HEMETOLOGY METHOD 09/10/2024 1:22 PM [facility] Immature Granulocytes Relative 0.7 % LAB HEMETOLOGY METHOD 09/10/2024 1:22 PM [facility] Neutrophils Absolute 8.27(H) 1.50 - 7.00 K/mcL LAB HEMETOLOGY METHOD 09/10/2024 1:22 PM EDT [facility] Lymphocytes Absolute 2.67 1.00 - 5.00 K/mcL LAB HEMETOLOGY METHOD 09/10/2024 1:22 PM EDT [facility] Monocytes Absolute 0.72 0.20 - 1.00 K/mcL LAB HEMETOLOGY METHOD 09/10/2024 1:22 PM EDT [facility] Eosinophils Absolute 0.23 0.00 - 0.50 K/[facility] LAB HEMETOLOGY METHOD 09/10/2024 1:22 PM EDT [facility] Basophils Absolute 0.04 0.00 - 0.20 K/mcL LAB HEMETOLOGY METHOD 09/10/2024 1:22 PM EDT [facility] Immature Granulocytes Absolute 0.09(H) 0.00 - 0.03 K/[facility] LAB HEMETOLOGY METHOD 09/10/2024 1:22 PM EDT [facility] Blood Venous blood specimen / Unknown 09/10/2024 11:20 AM EDT 09/10/2024 12:52 PM EDT us Fartun Ho MD LAB BLOOD ORDERABLES Final Resul t [facility] [address] [place] [address], * (ABNORMAL) Magnesium (09/10/2024 4:49 AM EDT) Magnesium 1.4(L) 1.9 - 2.6 mg/dL LAB CHEMISTRY METHOD 09/10/2024 9:50 AM EDT [facility] Blood Venous blood specimen / Unknown Venipuncture / Unknown 09/10/2024 4:49 AM EDT 09/10/2024 8:45 AM EDT us Fartun Ho MD LAB BLOOD ORDERABLES Final Resul t [facility] [address] [place] [address], * (ABNORMAL) Basic metabolic panel (09/10/2024 4:49 AM EDT) Sodium 139 133 - 145 mmol/L LAB CHEMISTRY METHOD 09/10/2024 9:50 AM T [facility] Potassium 3.5 3.5 - 5.5 mmol/L LAB CHEMISTRY METHOD 09/10/2024 9:50 AM [facility] Chloride 97 96 - 110 mmol/L LAB CHEMISTRY METHOD 09/10/2024 9:50 AM [facility] CO2 34(H) 21 - 32 mmol/L LAB CHEMISTRY METHOD 09/10/2024 9:50 AM [facility] Anion Gap 8 3 - 11 LAB CHEMISTRY METHOD 09/10/2024 9:50 AM [facility] Glucose 128(H) 70 - 100 mg/dL LAB CHEMISTRY METHOD 09/10/2024 9:50 AM [facility] BUN 19 5 - 25 mg/dL LAB CHEMISTRY METHOD 09/10/2024 9:50 AM [facility] Creatinine 1.48(H) 0.50 - 1.10 mg/dL LAB CHEMISTRY METHOD 09/10/2024 9:50 AM [facility] eGFR 37(L) >=60 mL/min/1. 73m2 LAB CHEMISTRY METHOD 09/10/2024 9:50 AM [facility] Comment:Calculation based on the Chronic Kidney Disease Epidemiology Collaboration (CKD-EPI) equation refit without adjustment for race. BUN/Creatinine Ratio 12.8 LAB CHEMISTRY METHOD 09/10/2024 9:50 AM [facility] Calcium 9.3 8.5 - 10.5 mg/dL LAB CHEMISTRY METHOD 09/10/2024 9:50 AM EDT [facility] Blood Venous blood specimen / Unknown Venipuncture / Unknown 09/10/2024 4:49 AM EDT 09/10/2024 8:45 AM EDT us Fartun Ho MD LAB BLOOD ORDERABLES Final Resul t [facility] [address] [place] [address], documented in this encounter Visit Diagnoses Diagnosis Hypokalemia Hypopotassemia documented in this encounter Care Teams Hearing Impaired Itinerant Teacher Relationship Specialty Start Date End Date Steven Jones NP [address] [place], [place] PCP - General 09/11/23 documented as of this encounter
--- OUTSIDE RECORDS SUMMARY | 2025-01-21 19:40 | XMS_ITS | Encounter Summary ---
Author Organization [facility] Address [address] [address] Phone Care Team Providers Care Butcher Helper Name Role Phone Steven Jones DIESEL POWERPLANT SUPERVISOR Primary Care Provider [phone] Encounter Details Date Type Department Care Team (Late Contact Info) Description 11/15/2024 Documentation Only [facility] [address] [place] [address] [place], [place] [address] [place] [address] Social History Tobacco Use Types [...] Visit [facility] [address] [place] [address] Richard Edward MD [address] [place] [address] [place] [address] documented as of this encounter Visit Diagnoses Not on filedocumented in this encounter Care Teams Butcher Helper Relationship Specialty Start Date End Date Steven Jones NP [address] [place] [address], [address] [place], [place] [phone] PCP - General Nurse Practitioner 11/15/24 documented as of this encounter
--- OUTSIDE RECORDS SUMMARY | 2025-01-21 19:40 | XMS_ITS | Encounter Summary ---
Author Organization [facility] Address [address] [address] Phone Care Team Providers Care Gas Dispatcher Name Role Phone Steven Jones LESLI Primary Care Provider [phone] Encounter Details Date Type Department Care Team (Late Contact Info) Description 01/19/2025 Telephone [facility] [address] [place] [address] [place] [address] [place] [phone] Social History Tobacco Use Types Packs/Day Years Used Date Smoking Tobacco: Never Assessed Comments Unknown Sex and Gender Information Value Date Recorded Sex Assigned at Not on file Legal Sex Female 1:00 PM EDT Gender Identity Not on file Sexual Orientation Not on file documented as of this encounter Miscellaneous Notes * Telephone Encounter - [place] - 01/19/2025 2:59 PM EST Lm on vm with pts 1 month f/u appt 02/14/25 @115 documented in this encounter Plan of Treatment Upcoming Encounters Date Type Department Care Team (Late Contact Info) Description 02/14/2025 1:15 PM EST Office Visit [facility] [address] [place] [address] Richard Edward MD [address] [facility] [place] [address] documented as of this encounter Visit Diagnoses Not on filedocumented in this encounter Care Teams Gas Dispatcher Relationship Specialty Start Date End Date Steven Jones NP [address] [place] [address], [address] [place] [address] PCP - General Nurse Practitioner 11/15/24 documented as of this encounter
--- OUTSIDE RECORDS SUMMARY | 2025-01-21 19:40 | XMS_ITS | Clinical Summary ---
Author Organization [facility] Address [address] [place] [address] Phone Care Team Providers Care Psychology Physician Name Role Phone Maya Lundberg MD Unavailable [phone] Tatiana Graves MD Unavailable Steven Jones CNP Primary Care Provider [phone] Ventura Merritt DPM Unavailable [phone] Evi Rock MD, MPH Unavailable [phone] Enedina Heller MD Unavailable Magdiel Acosta MD Unavailable Jimmie Renee MD Unavailable [email or web address] [email or web address] Active Allergy Reactions Criticality Noted Date Comments Lisinopril Angioedema,Swelling, U nknown High 08/11/2017 Other Reaction(s): tongue swelling Metformin Diarrhea 07/21/2023 Potassium Other (See Comments) 10/19/2024 Skin peels Sulfa (Sulfonamide Antibiotics) Unknown 01/07/2017 Medications fluticasone-umecl idin-vilanter (TRELEGY ELLIPTA) 100-62.5-25 mcg inhalation powder Inhale 1 puff into the lungs daily. Active albuterol 90 mcg/actuation inhalerIndication s:Acute bronchitis, unspecified organism INHALE 2 PUFFS BY MOUTH INTO THE LUNGS EVERY 6 HOURS NEEDED FOR WHEEZING 9 g 2 022 Active OXYGEN-AIR DELIVERY SYSTEMS MIS by Miscellaneous route. 2L at night or as needed Active ONETOUCH ULTRA2 METER Misc meterIndications: Type 2 diabetes mellitus with diabetic polyneuropathy, without long-term current use of insulin USE TWICE DAILY DIRECTED NEEDED 1 each 024 Active fluticasone propionate (FLONASE) 50 mcg/actuation nasal spray Use 1 spray(s) in each nostril once daily 16 g 025 Active Eccentex CorporationTOUCH ULTRA TEST Strp stripsIndications :Type 2 diabetes mellitus with diabetic polyneuropathy, without long-term current use of insulin USE TO CHECK BLOOD SUGAR TWO TO THREE TIMES DAILY 300 strip 3 025 Active NOVOLOG FLEXPEN U-100 INSULIN 100 unit/mL (3 mL) flexpenIndication s:Type 2 diabetes mellitus with peripheral neuropathy INJECT 2 TO 5 UNITS SUBCUTANEOUSLY THREE TIMES DAILY PER SLIDING SCALE 15 mL 1 025 Active amLODIPine (NORVASC) 5 MG tabletIndications :Essential (primary) hypertension Take 1 tablet by mouth once daily 90 tablet 3 025 Active atorvastatin (LIPITOR) 40 MG tabletIndications :Mixed hyperlipidemia Take 1 tablet by mouth once daily 90 tablet 3 025 Active omeprazole (PRILOSEC) 20 MG capsuleIndication s:Gastroesophagea l reflux disease without esophagitis Take 1 capsule by mouth once daily 90 capsule 3 025 Active DULoxetine (CYMBALTA) 20 MG capsule Take 1 capsule (20 mg total) by mouth daily. Take with 30 mg dose for total daily dose 50 mg 90 capsule 025 Active potassium chloride SA (KLOR-CON M20) 20 MEQ ER tablet Take 20 mEq by mouth daily. 025 Active gabapentin (NEURONTIN) 300 MG capsule Take 1 capsule (300 mg total) by mouth every morning AND 2 capsules (600 mg total) nightly at bedtime. 270 capsule 025 Active DULoxetine (CYMBALTA) 30 MG capsule Take 1 capsule by mouth once daily 90 capsule 3 025 Active semaglutide (OZEMPIC) 0.25 mg or 0.5 mg (2 mg/3 mL) subcutaneous injection penIndications:Ty pe 2 diabetes mellitus with peripheral neuropathy Inject 0.25 mg under the skin every 7 days. Can increase to 0.5 mg after 1 month as tolerated 3 mL 1 025 Active allopurinol (ZYLOPRIM) 300 MG tablet Take 1 tablet by mouth once daily 90 tablet Active DULoxetine (CYMBALTA) 30 MG capsule Take 1 capsule by mouth once daily 90 capsule 1 025 2024 Discontinued allopurinol (ZYLOPRIM) 300 MG tablet Take 1 tablet by mouth once daily 90 tablet 025 2024 Discontinued Active Problems Problem Noted Date Diagnosed Date Abnormal thyroid function test 12/27/2024 Assessment & Plan (12/27/2024 3:50 PM EST): TSH high on last labs. Will repeat with labs today. Pulmonary emphysema 11/03/2024 Assessment & Plan (11/03/2024 11:34 AM EDT): Nocturnal hypoxemia 10/26/2024 Assessment & Plan (12/14/2024 4:01 PM EDT): Using O2 nightly. She is waiting for HST to re-evaluate NOLBERTO. Assessment & Plan (10/26/2024 11:53 AM EDT): Managed by pulmonology. She has declined treatment of known NOLBERTO. She uses O2 at 2 LPM at night. She is not using Trelegy. PFTs were performed in July. Follow up with pulmonology as scheduled. Class 1 obesity with serious comorbidity and body mass index (BMI) of 32.0 to 32.9 in adult 10/26/2024 Assessment & Plan (12/14/2024 4:01 PM EDT): Her appetite is good and she seems much more alert and less frail today. Will monitor. Liver lesion 04/02/2024 Assessment & Plan (06/01/2024 11:04 AM EDT): History of knee replacement, total, right 2024 Assessment & Plan (11/17/2024 4:42 PM EDT): She is not doing HEP and is not motivated by reminders from her family. Referred to [facility] as now homebound again. Orders: Referral to Home Health [facility] Assessment & Plan (10/26/2024 11:12 AM EDT): Continue HEP. Follow up with [facility] as scheduled. Notes reviewed. Type 2 diabetes mellitus wit h stage 3b chronic kidney disease, with long-term current use of insulin 12/02/2023 Assessment & Plan (12/14/2024 4:01 PM EDT): Now under the care of nephrology. Await recent labs drawn earlier this month (not available in Care Everywhere or on the [facility] gravity meter observer). Based on available creatinine clearance we can not increase her gabapentin further. Await follow up visit 12/16. Assessment & Plan (11/17/2024 4:42 PM EDT): Assessment & Plan (10/26/2024 11:12 AM EDT): Follow with endocrinology as scheduled. Assessment & Plan (06/01/2024 11:04 AM EDT): Shavonne is tolerating Ozempic weekly. We will try, again, to obtain a copy of her last eye exam from [facility]. Follow up with Dr. Clifford next month as scheduled. She will have labs drawn this morning. Assessment & Plan (12/02/2023 1:42 PM EDT): Monitor renal function closely. Avoid nephrotoxic medications. Check urine microalbumin yearly. She has an upcoming appointment with Dr. Clifford. BP is above goal today and has been variable recently. If BP at upcoming visit is elevated >130/80, I would recommend dose titration of amlodipine to 7.5 mg daily and return 1 month later. Will track. Primary osteoarthritis of right hip 11/10/2023 Overview (03/09/2024): Plain film 10/2023 There is moderate to marked degenerative change of the right hip. There is prominent heterotopic ossification along the inferior femoral neck. There is mild degenerative change of the left hip. The sacroiliac joints and symphysis pubis are congruent. Steroid injections to right greater trochanter 11/10/23 and 03/02/24 Assessment & Plan (03/09/2024 1:27 PM EST): Some symptomatic benefit since recent repeat local steroid injection to right greater trochanter administered by [facility] but clinical picture again concerning for lumbar radiculopathy Assessment & Plan (11/10/2023 1:01 PM EDT): Ddx of severe, disabling right thigh pain includes right hip OA and l-spine origin. D/w patient in detail today that steroid injection to the hip bursa is not expected to provide significant benefit if her pain is of l-spine origin, but reasonable to proceed given clinical context and patient preference. She previously declined referral to sports medicine for discussion of intra-articular steroid injection to right hip but is open to dedicated spine evaluation pending response to steroid injection. Rx hydrocodone-APAP; patient counseled to avoid taking together with additional APAP. care home current use of insulin 11/07/2023 Assessment & Plan (11/07/2023 10:38 AM EDT): Will maintain her novolog dosing Long-term (current) use of i njectable non-insulin antidiabetic drugs 11/07/2023 Assessment & Plan (11/07/2023 10:38 AM EDT): She tolerated the 0.25 mg dose, and the 0.5 mg dose of ozempic. Will increase the dosing to the 1 mg dose. Prescription sent to her pharmacy Encounter for monitoring Jo-2 selective NSAID t herapy 10/08/2023 Assessment & Plan (03/09/2024 1:33 PM EST): Inadequate to significantly mitigate currently severe RLE pain Assessment & Plan (10/08/2023 12:43 PM EDT): Tolerating celecoxib with significant symptomatic benefit; will request recent labs obtained at OSH (? Jennifer) for review Loose stools 01/31/2023 Incontinence of feces with fecal urgency 023 Memory change 01/31/2023 Stage 3b chronic kidney disease 05/09/2022 Assessment & Plan (07/21/2023 10:14 AM EDT): Update urine test and BMP today; mild rise in creatinine with labs for rheumatology last month. Assessment & Plan (09/16/2022 11:27 AM EDT): Relative contraindication to regular use of oral NSAIDs Primary osteoarthritis of both knees 05/24/2021 Overview (03/09/2024): Inadequate benefit following intra-articular steroid injection bl 08/2022 Topical diclofenac resulted in diarrhea Benefit from intra-articular steroid injection bl 06/2023 waned in less than 2 months Plain films 06/2023 Right knee tricompartmental osteoarthritis, moderate in the patellofemoral compartment. Left knee tricompartmental osteoarthritis, moderate in the patellofemoral compartment. Assessment & Plan (03/09/2024 1:28 PM EST): Repeat intra-articular steroid injection to right knee as detailed in procedure note for possible symptomatic benefit; patient advised unlikely to have any efficacy if her lateral knee pain is in fact of l-spine origin. Assessment & Plan (11/10/2023 1:02 PM EDT): Absence of sustained benefit following 10/08/23 hyaluronic acid injections though clinical picture c/b currently severe right hip / thigh pain. Assessment & Plan (10/08/2023 12:42 PM EDT): Continue celecoxib; intra-articular hyaluronic acid injections bl today as detailed in procedure note. Assessment & Plan (06/24/2023 10:47 AM EDT): Patient requests repeat intra-articular steroid injection bl knees today - she is hoping for even short-term relief of severe pain; see procedure note. She is amenable to re-trial celecoxib as well as updated labs and x-rays. We can proceed with hyaluronic acid injections pending response to today's injections and celecoxib as well as x-ray findings. Assessment & Plan (01/16/2023 1:15 PM EST): D/w patient that I would not repeat intra-articular steroid injections today given that the duration of benefit from 08/2022 injections was of only approximately 1 month. Relatively mild reported x-ray findings as well as inadequacy of steroid injections raise question of component of lumbar radiculopathy in this patient who is s/p l-spine surgery, though bilaterality and lack of improvement with current use of both gabapentin and duloxetine argue against this. As her joint line pain is quite localized I have recommended trial of topical diclofenac, and she is amenable to this option. If topical diclofenac is completely ineffective, would re-trial celecoxib vs other oral NSAID +/- hyaluronic acid injections vs additional imaging. Assessment & Plan (09/16/2022 11:26 AM EDT): Intra-articular steroid injection bl knees today as detailed in procedure note; can inject hyaluronic acid in future pending clinical response to steroid. Will obtain updated plain films. Patient declined dedicated PT referral today. There is no subjective or objective evidence concerning for inflammatory arthritis other than documented gout hx. 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 Heller. Multifocal on imaging 2023. Assessment & Plan (12/14/2024 4:01 PM EDT): Under the care of pulmonology and thoracic surgery. Assessment & Plan (06/01/2024 11:04 AM EDT): She is followed by Dr. Lundberg. She will see Dr. Heller tomorrow to review the pathology from recent liver biopsy. Consider support from palliative care for chronic pain. Assessment & Plan (12/02/2023 2:03 PM EDT): CT follow up planned 03/2024. Last note reviewed from Dr. Heller. Assessment & Plan (07/21/2023 2:31 PM EDT): Under specialist care at [facility]. Await most recent PFTs and CT scan. She has a follow up visit with Dr. Heller this week and will follow up with oncology as well. Breathing symptoms are stable on current inhalers and O2 at night. She admits to smoking THC daily. We discussed the importance of avoiding inhaled substances and switching to edibles if needed. Her reinforces this. History of stroke 06/16/2020 Pain of right thumb 05/26/2020 Assessment & Plan (05/26/2020 10:43 AM EDT): Joint injection Joint injection site was identified. Injection site was swabbed with alcohol. Local anesthesia was obtained with ethyl chloride spray. Right 1st medial MCP was injected with 20 mg Depo medrol and 1/2 ml of 1% Lidocaine. Hemostasis was obtained with pressure. A bandage was applied. Post injection care was discussed with the patient. Post injection activity was discussed with the patient. [facility] # 6092-7970-21 [facility] # 5013-1343-34 Lot # [id number] Exp. 03/10 Continue Duloxetine 30 mg once daily. Continue Sulindac 200 mg once daily with food. Tendinitis of right knee 02/25/2020 Assessment & Plan (05/26/2020 10:44 AM EDT): Continue Duloxetine 30 mg once daily. Continue Sulindac 200 mg once daily with food. Primary osteoarthritis involving multiple joints 08/14/2018 Assessment & Plan (06/01/2024 11:04 AM EDT): Could consider orthopedics evaluation for the knee pain as a next step but need EMG to start. Assessment & Plan (07/21/2023 10:15 AM EDT): Followed by Dr. Rock. Follow up as planned. Assessment & Plan (05/26/2020 10:44 AM EDT): Continue Duloxetine 30 mg once daily. Continue Sulindac 200 mg once daily with food Plantar fasciitis, bilateral 08/14/2018 Assessment & Plan (05/26/2020 10:45 AM EDT): Continue stretching, strengthening exercises Avoid walking barefooted on hard surfaces. Acute bilateral ankle pain 07/14/2018 Pulmonary nodules 02/25/2018 Assessment & Plan (12/02/2023 1:38 PM EDT): Followed by pulmonology. Pes anserine bursitis 10/14/2017 Bilateral foot pain 02/04/2017 Chronic bilateral low back pain with bilateral s ciatica 02/04/2017 Assessment & Plan (12/02/2023 2:00 PM EDT): We discussed the risk of multiple pain medications. She has finished her course of Yoder. I reviewed her chart extensively. She had a lumbar spine MRI in 2016 that demonstrated facet arthropathy, foraminal stenosis, L1-2 disc protrusion but no severe spinal stenosis. I recommend consult with [facility]. I sent a small quantity of Tramadol. I would advise against usp use of this and she should limit to 1/day. Lumbar radiculopathy 02/04/2017 Assessment & Plan (12/14/2024 3:41 PM EDT): MRI 02/2024 reviewed. She was dissatisfied with the care at [facility]. I have referred her to [facility] for evaluation of her back. She does have localized swelling to the left posterior iliac crest but I am not sure that surgical excision would be offered or helpful. Defer to specialist. Orders: External Referral to Orthopedics ([facility] Assessment & Plan (10/26/2024 11:12 AM EDT): Improved with injection through [facility]. Assessment & Plan (06/01/2024 11:04 AM EDT): She has a follow up visit with [facility] next week. We discussed that frequent steroid injections in a joint can have complications and all providers need to be informed of other injections she is receiving. She understands. I think that her knee pain is likely referred given the degree of pain vs the mild OA on the x-ray last month. Given creatinine clearance we can not increase gabapentin. I asked her to try increasing duloxetine from 30 mg to 50 mg daily. She requests a refill of Tramadol and we reviewed, again, that given the potential interaction between this and her SNRI I prefer that her specialist prescribe this. Await upcoming EMG. Assessment & Plan (03/09/2024 1:30 PM EST): [facility] f/u scheduled for next wk; notes from 01/2024 and 03/02/24 reviewed today Essential (primary) hypertension 02/04/2017 Assessment & Plan (12/14/2024 4:01 PM EDT): Blood pressure remains at goal. Remain off lisinopril and HCTZ given electrolyte abnormalities. Assessment & Plan (12/22/2023 1:18 PM EST): Appears well controlled. Assessment & Plan (12/02/2023 1:57 PM EDT): Await upcoming endocrinology BP measurement. Titrate amlodipine if elevated at that visit. Assessment & Plan (08/04/2023 5:00 PM EDT): Controlled today. Assessment & Plan (07/21/2023 10:17 AM EDT): Adequately controlled on my check. Continue current medications for goal BP <130/80. Fibromyalgia 02/04/2017 Assessment & Plan (12/14/2024 4:01 PM EDT): On duloxetine. Assessment & Plan (10/26/2024 11:12 AM EDT): Followed by Dr. Rock. Last seen in February. Tramadol is currently being prescribed by orthopedics. Assessment & Plan (06/01/2024 11:04 AM EDT): Assessment & Plan (12/02/2023 1:57 PM EDT): She continues on duloxetine 30 mg daily. Gastroesophageal reflux disease without esophagi tis 02/04/2017 Personal history of gout 02/04/2017 Overview (09/16/2022): No crystal dx Assessment & Plan (03/09/2024 1:29 PM EST): Compliant with allopurinol; no recent s/s of acute gout Assessment & Plan (12/02/2023 1:42 PM EDT): On allopurinol. Last uric acid level was at goal. Assessment & Plan (07/21/2023 10:16 AM EDT): No symptoms since she started allopurinol. Last uric acid was at goal Assessment & Plan (06/24/2023 10:48 AM EDT): Compliant with allopurinol 300 mg daily; no recent serum uric acid available for my review. Assessment & Plan (09/16/2022 11:23 AM EDT): Compliant with allopurinol 300 mg daily; no recent sxs of acute gout and no recent serum uric acid available for my review today. Updated uric acid level with next routine labs; will adjust allopurinol dose as needed to maintain serum uric acid <6.0 mg/dL Mixed hyperlipidemia 02/04/2017 Assessment & Plan (12/02/2023 1:38 PM EDT): LDL goal <70. Check yearly. Continue statin. Assessment & Plan (07/21/2023 10:16 AM EDT): LDL goal <100 and probably <70; there is a diagnosis of prior stroke on her chart and we will clarify this at her next visit. Hypomagnesemia 02/04/2017 Assessment & Plan (11/17/2024 4:42 PM EDT): She has been on BID magnesium since last week. Orders: Magnesium; Future Type 2 diabetes mellitus with peripheral neuropa thy Assessment & Plan (12/27/2024 3:52 PM EST): Control has been good. No recent HbA1c & limited SMBG. Will do hba1c today. She has come off of ozempic, ? If it was a contributing factor to dehydration/DIGNA. Feeling better & would like to go back on lower dose. As she has been off rx for some time, will restart @ 0.25 mg dose, may increase to 0.50 mg dose after 1 month if tolerating ok & may titrate further over time as needed/tolerated. Continue to work on eating healthy & keeping active. To call or send in log with problems with glucose control. Had tried massimo, felt was inaccurate. Discussed differences between massimo/SMBG & encouraged her to retry, can bring to next visit with HAJA for help learning to use. She follows w/ podiatry. She is overdue w/ ophtho, to schedule. Assessment & Plan (12/14/2024 4:01 PM EDT): A1c was 6.6% this summer. Follow up with Dr. Clifford on 12/27 as scheduled. Schedule diabetic eye exam. Assessment & Plan (10/11/2024 11:54 AM EDT): Control has improved based upon the patient's A1C of 6.6%. She has not been checking her glucose levels since being home from rehab but will start checking again. No frequent or severe hypoglycemia. Continue to work on eating healthy and being active. To call or message with any issues managing her glucose levels. Needs to schedule her yearly annual exam with ophtho. I have maintained a long-term, longitudinal relationship with this patient, overseeing care of chronic conditions, including diabetes. This care relationship has significantly influenced my decision-making and treatment plans during today's encounter. Assessment & Plan (07/05/2024 9:40 AM EDT): Control has improved based upon the patient's recent A1C of 7.3% and her recall of her SMBG readings. No frequent or severe hypoglycemia. She questions how her novolog should be dosed. Reviewed how to take the novolog and the timing of th novolog. Continue to work on eating healthy and being active. To call or message with any issues managing her glucose levels. Due to schedule her yearly annual exam with ophtho. Labs ordered to be done prior to next visit Assessment & Plan (06/01/2024 11:04 AM EDT): Orders: CBC and differential; Future Assessment & Plan (05/17/2024 12:32 PM EDT): Control is reasonable based upon the patient's SMBG readings. No frequent or severe hypoglycemia. She has continue to tolerate the ozempic well. Will increase her dosing to 2 mg to help improve her glucose control. Continue to work on eating healthy and being active. To call or message with any issues managing her glucose levels. Up to date with opho. Labs ordered Assessment & Plan (12/22/2023 1:17 PM EST): 77 y.o. woman with longstanding type 2 diabetes, complicated by peripheral neuropathy & microalbuminuria. Control has improved with the shift from trulicity to ozempic. Reviewed role of prandial insulin and appropriate timing of rapid acting analog in relation to meals. She will be starting a freestyle massimo - [place] showed her how to get it set up. Continue to work on eating healthy & keeping active. To call or send in log with problems with glucose control. She follows w/ podiatry. She is up to date w/ ophtho. Assessment & Plan (12/02/2023 1:41 PM EDT): Managed with gabapentin. She uses a cane for stability. Her daughter provides quite a lot of help. Referred to [facility] to discuss options for [facility] [employer] care. Assessment & Plan (11/07/2023 10:37 AM EDT): Control is improving based upon the patient's SMBG readings. No frequent or severe hypoglycemia. She tolerated the ozempic well. Will increase her dosing to 1 mg. Will send the paperwork to [facility] for her to be able to get the freestyle massimo 3 CGM. This will allow for her to make better insulin adjustments at meals when she can continuously watch her readings. Continue to work on eating healthy and being active. To call or message with any issues managing her glucose levels. Up to date with ophtho. Labs ordered Assessment & Plan (09/26/2023 1:14 PM EDT): Control is poor based upon the patient's SMBG readings. No frequent or severe hypoglycemia. She has not been able to get the trulicity. Will start her on 0.25 mg weekly ozempic and then increase to 0.5 mg weekly as this has been available. Reviewed how to take the ozempic and potential side effects. She will call with any issues getting the ozempic or using it. Continue to work on eating healthy and trying to be active. To call or message with any issues managing her glucose levels. Up to date with ophtho Assessment & Plan (08/04/2023 5:07 PM EDT): 77 y.o. woman with longstanding type 2 diabetes, complicated by peripheral neuropathy & microalbuminuria. Control has deteriorated off of trulicity due to supply chain issues, she has also had steroid injections into knees that has likely impacted glucose control. She has been using her 's novolog scale, & treating both before & after meals & has had some resultant hypoglycemia. Discussed progressive nature of disease. Discussed rationale & goals for control. Role of diet, exercise, medications. Role of & goals for HbA1c & SMBG. Reviewed options to improve control with risks & benefits, including intensification of lifestyle & available medications. Reviewed appropriate timing of rapid acting analog in relation to meals. She I overdue for ophtho, scheduled next week. Will try to get her low dose trulicity for now to get started on something. If she has not significant retinopathy, we can go ahead and shift to ozempic & titrate accordingly as needed/tolerated since that has had better availability. For the time being, can continue the novolog, but just give prior to meals when glucose is high. Continue to work on eating healthy & keeping active. To call or send in log with problems with glucose control. Scheduled w/ ophtho, to request report be sent here. Follows w/ podiatry. Assessment & Plan (07/21/2023 10:14 AM EDT): She has been off Trulicity for the past month and has been using her 's Novolog. I refilled testing supplies but strongly advised her only to use insulin with meals and not to add additional medication if she tests post-prandial. She had diarrhea from metformin. She can not recall whether she tolerated Farxiga last spring. She has not had a diabetic eye exam in 15 years and agrees to schedule this. She tolerates gabapentin for neuropathy and possibly also for fibromyalgia. She denies mood symptoms. Update labs this morning. Referral is active with endocrinology and she needs to be seen in the next couple of weeks. Type 2 diabetes mellitus with microalbuminuria Assessment & Plan (12/27/2024 3:46 PM EST): Persistent, mild. Recent episode DIGNA, following w/ renal. BP appears well controlled. Assessment & Plan (12/22/2023 1:17 PM EST): Persistent, mild. Not on wilda-inhibitor (angioedema) or ARB. BP appears reasonable. Assessment & Plan (12/02/2023 2:04 PM EDT): Continue close monitoring; urine testing has improved since last checked in 2021. We will request her last eye exam. Flu shot today. RSV vaccine recommended at the pharmacy. Assessment & Plan (08/04/2023 5:08 PM EDT): Persistent, mild. Not on wilda-inhibitor (angioedema) or ARB. BP appears reasonable. Resolved Problems Problem Noted Date Diagnosed Date Resolved Date Malignant neoplasm of lung 05/09/2022 0 07/21/2023 Abnormal liver function 02/04/2017/0 04/2023 Renal insufficiency 02/04/2017 07/21/19 24 Encounters Date Type Department Care Team Description 01/19/2025 Telephone [facility] [address] [place] [address] Portia Clifford MD Paper work 01/07/2025 Telephone [facility] [address] [place] [address] Steven Jones CNP 01/04/2025 Telephone [facility] Primary Care - [address] [address] [facility] Celina Flores LICSW Care Coordination (/) 12/30/2024 Refill [facility] [address] [place] [address] Christine Sheikh PA-C Medication Refill 12/29/2024 4:30 PM EST Telemedicine [facility] [address] [place] [address] Precious Roth, [facility]- Situational depression (Primary Dx) 12/27/2024 11:00 AM EST Office Visit [facility] [address] [phone] Portia Clifford MD Type 2 diabetes mellitus with peripheral neuropathy (Primary Dx); Type 2 diabetes mellitus with microalbuminuria; Abnormal thyroid function test; care home current use of insulin 12/27/2024 Orders Only [facility] [address] [address] Richard Edward MD Chronic kidney disease (CKD) stage G3a/A1, moderately decreased glomerular filtration rate (GFR) between 45-59 mL/min/1.73 square meter and albuminuria creatinine ratio less than 30 mg/g (Primary Dx); Acute renal failure, unspecified acute renal failure type; Hypopotassemia 12/24/2024 Refill [facility] [address] [place] [address] Steven Jones CNP Medication Refill 12/23/2024 Telephone [facility] ([facility] Primary Care - [address] [address] [facility] Celina Flores LICSW Care Coordination 12/16/2024 Telephone [facility] Primary Care - [address] [address] [facility] Celina Flores LICSW Care Coordination 12/14/2024 3:00 PM EDT Office Visit [address] [place] [address] Steven Jones CNP Medicare annual wellness visit, subsequent (Primary Dx); Type 2 diabetes mellitus with peripheral neuropathy; Type 2 diabetes mellitus with stage 3b chronic kidney disease, with long-term current use of insulin; At risk for falling; Lumbar radiculopathy; Localized swelling of back; Malignant carcinoid tumor of lung; Nocturnal hypoxemia; Situational depression; Insomnia secondary to situational depression; Class 1 obesity with serious comorbidity and body mass index (BMI) of 32.0 to 32.9 in adult, unspecified obesity type; Essential (primary) hypertension; Fibromyalgia; Impacted cerumen, bilateral; Needs flu shot 12/01/2024 3:30 PM EDT Telemedicine [address] [place] [address] Precious Roth, [facility] Situational depression (Primary Dx); Adjustment disorder with depressed mood 11/19/2024 11:59 AM EDT - 11/19/2024 11:59 PM EDT Hospital [facility] [place] [place] [address] Steven Jones CNP Discharge Disposition: Home or Self Care 11/17/2024 2:27 PM EDT - 11/17/2024 11:59 PM EDT Hospital Encounter [facility] [address] [place] [address] Steven Jones CNP Discharge Disposition: Home or Self Care 11/17/2024 1:30 PM EDT Office Visit [address] [place] [address] Steven Jones CNP Weight loss, unintentional (Primary Dx); Transient confusion; History of knee replacement, total, right; Cloudy urine; Hypokalemia; Hypomagnesemia; Type 2 diabetes mellitus with stage 3b chronic kidney disease, with long-term current use of insulin; Current smoker on some days 11/17/[address] [place] [address] Steven Jones CNP 11/12/[address] [place] [address] Neema Rashid RN Results 11/11/2024 1:11 PM EDT - 11/11/2024 11:59 PM EDT [facility] [address] [facility] [place] [address] Steven Jones CNP Discharge Disposition: Home or Self Care 11/10/[address] [place] [address] Steven Jones CNP Referral (Requesting a referral to PT ) 11/08/[address] [place] [address] Steven Jones CNP Labs 11/05/[address] [place] [address] Oriana Turner CNP Medication Refill 11/03/2024 11:34 AM EDT - 11/03/2024 11:59 PM EDT Hospital Encounter [facility] [address] [place] [address] Steven Jones CNP Discharge Disposition: Home or Self Care 11/03/2024 11:30 AM EDT Office Visit [address] [place] [address] Steven Jones CNP DIGNA (acute kidney injury) (Primary Dx); Dysuria; Acute cough; Pulmonary emphysema, unspecified emphysema type; Vitamin D deficiency; Hypokalemia 11/01/[address] [place] [address] Steven Jones CNP TCM Visit (11/03) 10/27/2024 Orders Only [address] [place] [address] Provider, MD Litzy 10/26/2024 11:21 AM EDT - 10/26/2024 11:59 PM EDT Hospital Encounter [facility] [address] [place] [address] Steven Jones CNP Discharge Disposition: Home or Self Care 10/26/2024 10:30 AM EDT Office Visit [address] [place] [address] Steven Jones CNP History of knee replacement, total, right (Primary Dx); Malaise and fatigue; Lightheadedness; Type 2 diabetes mellitus with stage 3b chronic kidney disease, with long-term current use of insulin; Lumbar radiculopathy; Fibromyalgia; Nocturnal hypoxemia 10/26/2024 Telephone [facility] [address] [place] [address] Celina Triplett PA-C Results (After hours call) from Last 3 Months Immunizations Immunization Administration Dates Next Due COVID-19 (Pre-12/09) Pfizer Vaccine, mRNA, PF 04/29/2020,04/06/2020 COVID-19 Pfizer Comirnaty Vaccine 12+ 10/20/2023 Hepatitis B Adult 05/26/2009,01/26/2009,12/14/19 09 Influenza High-Dose Quadriva lent Preservative Free IM 01/31/2023,11/09/2019 Influenza High-Dose Trivalen t Preservative Free IM 12/14/2024,12/02/2023,12/09/2018,10/29 Pneumococcal conjugate PCV13 01/14/2017,09/05/19 16 Pneumococcal polysaccharide PPSV23 09/27/2021 RSV Vaccine (monovalent, adjuvanted) 12/17/2023 Tdap 07/09/2018 Zoster live 10/29/2016 Zoster recombinant 11/07/2020,06/16/2020, 020 Family History Medical History Relation Comments Alcohol abuse Father Cancer Father unknown Alzheimer's disease Mother Lung disease Mother tobacco Thyroid disease Mother Diabetes mellitus Sibling 2 Hypertension Sibling 2 Diabetes Unspecified paternal uncles, maternal great aunt Relation Status Comments Father Mother Sibling 1 Sibling 2 Unspecified Social History Tobacco Use Types Packs/Day Years Used Date Smoking Tobacco: Some Days Cigarettes 0 58.9 Started: 03/1961; Last attempted to quit: 03/2018 Passive Smoke Exposure: Past Smokeless Tobacco: Never Tobacco Cessation:Ready to Q uit: Not Asked; Counseling Given: Not Answered Comments:Once 1-3 months, 1 pack Passive Exposure [...] 12/14/2024 Are you denied basic needs s [facility] as food, clothing, or medical care? No [...] Sign Reading Time Taken Comments Blood Pressure 118/72 12/27/2024 11:00 AM EST Pulse 85 12/27/2024 11:00 AM EST Temperature 35.3 C (95.5 F) 12/14/2024 2:51 PM EDT Respiratory Rate 24 05/17/2024 10:32 AM EDT Oxygen Saturation 95% 12/27/2024 11:00 AM EST Inhaled Oxygen Concentration - - Weight 83 kg (183 lb) 12/27/2024 11:00 AM EST Height 157.5 cm (5' 2.01 ) 12/27/2024 11:[address] Body Mass Index 33.46 12/27/2024 11:00 AM EST Plan of Treatment Upcoming Encounters Date Type Department Care Team (Late st Contact Info) Description 02/28/2025 9:20 AM EST Office Visit [facility] [address] [phone] Jayne Kelley PA-C [address] [place] [phone] 06/06/2025 11:00 AM EDT Office Visit [facility] [address] [phone] Jayne Kelley PA-C [address] [place] [address] 06/14/2025 11:30 AM EDT Office Visit [address] [place] [address] Steven Jones CNP [address] [facility] [place] [address] 09/05/2025 11:00 AM EDT Office Visit [facility] [place] [address] [place] [phone] Portia Clifford MD [address] [place] [address] 12/19/2025 11:30 AM EST Office Visit [facility] [address] [place] [address] Steven Jones, MARINE DES[employer]ER [address] [facility] [place] [address] [email or web address] Health Maintenance Due Date Last Done Comments DIABETIC EYE EXAM 08/11/2024 08/12/2023 COVID-19 VACCINE ( season) 2025 11/02/2024, 10/20/2023, 11/19/2022, Additional history exists BLOOD PRESSURE 06/26/2025 12/27/2024 HEMOGLOBIN A1C 06/26/2025 12/27/2024, 0604/2024, 06/01/2024, Additional history exists SMOKING Hx and SMOKELESS TOBACCO SCREENING 12/14/2025 12/14/2024 CREATININE LEVEL 12/27/2025 12/27/2024, 02/2024, 11/11/2024, Additional history exists POTASSIUM LEVEL 12/27/2025 12/27/2024, 100 02/2024, 11/11/2024, Additional history exists DEPRESSION SCREENING 12/29/2025 12/29/2024, 12/02/19 25 Adult Td,Tdap Booster 07/09/2028 07/09/2018 OSTEOPOROSIS SCREENING INITIAL (ONE-TIME) Completed 01/16/2012 HEPATITIS C SCREENING Completed 04/16/2016 ZOSTER VACCINES Completed 11/07/2020, 04/3 , 11/09/2019, Additional history exists PNEUMOCOCCAL VACCINES (50+ years) Completed 09/27/2021, 01/14/2017, 09/05/2015 RSV VACCINE Completed 12/17/2023 INFLUENZA VACCINE Completed 12/14/2024, , 01/31/2023, Additional history exists HEPATITIS A VACCINES Aged Out No long er eligible based on patient's age to complete this topic HIB VACCINES Aged Out No longer eligi ble based on patient's age to complete this topic MENINGOCOCCAL VACCINES (ACWY) Aged Out No longer eligible based on patient's age to complete this topic MENINGOCOCCAL VACCINES (B) Aged Out N o longer eligible based on patient's age to complete this topic Medical Devices Not on file Procedures Procedure Name Priority Date/Time Associated Diagnosis Comments MICROALBUMIN/CREATINI NE RATIO, RANDOM URINE Routine 12/27/2024 12:11 PM EST Chronic kidney disease (CKD) stage G3a/A1, moderately decreased glomerular filtration rate (GFR) between 45-59 mL/min/1.73 square meter and albuminuria creatinine ratio less than 30 mg/g Acute renal failure, unspecified acute renal failure type Hypopotassemia URINALYSIS WITH SEDIMENT Routine 12/27/2024 12:11 PM EST Chronic kidney disease (CKD) stage G3a/A1, moderately decreased glomerular filtration rate (GFR) between 45-59 mL/min/1.73 square meter and albuminuria creatinine ratio less than 30 mg/g Acute renal failure, unspecified acute renal failure type Hypopotassemia IRON AND IRON BINDING CAPACITY Routine 12/27/2024 11:47 AM EST Chronic kidney disease (CKD) stage G3a/A1, moderately decreased glomerular filtration rate (GFR) between 45-59 mL/min/1.73 square meter and albuminuria creatinine ratio less than 30 mg/g Acute renal failure, unspecified acute renal failure type Hypopotassemia FERRITIN Routine 12/27/2024 11:47 AM EST Chronic kidney disease (CKD) stage G3a/A1, moderately decreased glomerular filtration rate (GFR) between 45-59 mL/min/1.73 square meter and albuminuria creatinine ratio less than 30 mg/g Acute renal failure, unspecified acute renal failure type Hypopotassemia PARATHYROID HORMONE (PTH) Routine 12/27/2024 11:47 AM EST Chronic kidney disease (CKD) stage G3a/A1, moderately decreased glomerular filtration rate (GFR) between 45-59 mL/min/1.73 square meter and albuminuria creatinine ratio less than 30 mg/g Acute renal failure, unspecified acute renal failure type Hypopotassemia CBC Routine 12/27/2024 11:47 AM EST Chronic kidney disease (CKD) stage G3a/A1, moderately decreased glomerular filtration rate (GFR) between 45-59 mL/min/1.73 square meter and albuminuria creatinine ratio less than 30 mg/g Acute renal failure, unspecified acute renal failure type Hypopotassemia RENAL PANEL Routine 12/27/2024 11:47 AM EST Chronic kidney disease (CKD) stage G3a/A1, moderately decreased glomerular filtration rate (GFR) between 45-59 mL/min/1.73 square meter and albuminuria creatinine ratio less than 30 mg/g Acute renal failure, unspecified acute renal failure type Hypopotassemia HEMOGLOBIN A1C Routine 12/27/2024 11:47 AM EST Type 2 diabetes mellitus with peripheral neuropathy TSH WITH REFLEX Routine 12/27/2024 11:47 AM EST Abnormal thyroid function test URINALYSIS WITH REFLEX TO URINE CULTURE Routine 11/19/2024 4:30 AM EDT Weight loss, unintentional Cloudy urine FREE T4 Routine 11/17/2024 2:34 PM EDT TSH WITH REFLEX Routine 11/17/2024 2:34 PM EDT Cloudy urine CBC AND DIFFERENTIAL Routine 11/17/2024 2:34 PM EDT Weight loss, unintentional BASIC METABOLIC PANEL (BMP) Routine 11/17/2024 2:34 PM EDT Hypokalemia MAGNESIUM Routine 11/17/2024 2:34 PM EDT Hypomagnesemia MAGNESIUM Routine 11/11/2024 1:11 PM EDT Hypomagnesemia BASIC METABOLIC PANEL (BMP) Routine 11/11/2024 1:11 PM EDT DIGNA (acute kidney injury) URINALYSIS WITH REFLEX TO URINE CULTURE Routine 11/03/2024 12:01 PM EDT Dysuria CBC AND DIFFERENTIAL Routine 11/03/2024 11:45 AM EDT DIGNA (acute kidney injury) COMPREHENSIVE METABOLIC PANEL (CMP) Routine 11/03/2024 11:45 AM EDT DIGNA (acute kidney injury) MAGNESIUM Routine 11/03/2024 11:45 AM EDT DIGNA (acute kidney injury) POCT COVID-19 RT-PCR/INFLUENZA A & B/RSV CEPHEID Routine 11/03/2024 11:26 AM EDT CBC Routine 10/26/2024 12:06 PM EDT Malaise and fatigue COMPREHENSIVE METABOLIC PANEL (CMP) Routine 10/26/2024 12:06 PM EDT Malaise and fatigue FERRITIN Routine 10/26/2024 12:06 PM EDT Malaise and fatigue TSH WITH REFLEX Routine 10/26/2024 12:06 PM EDT Malaise and fatigue VITAMIN B12 Routine 10/26/2024 12:06 PM EDT Malaise and fatigue 25-OH VITAMIN D Routine 10/26/2024 12:06 PM EDT Malaise and fatigue Lightheadedness ECG 12-LEAD Routine 10/26/2024 10:51 AM EDT Malaise and fatigue Lightheadedness DIABETES EYE EXAM FOR RESULT ENTRY ONLY Routine 08/12/2023 2:22 PM EDT OUTSIDE BONE DENSITY SCREENING Routine 01/16/2012 from Last 3 Months or Most Recently Relevant to Health Maintenance Results * (ABNORMAL) Urinalysis with Sediment (12/27/2024 12:11 PM EST) Color Yellow Yellow 12/27/2024 9:45 PM [facility] Clarity Clear Clear 12/27/2024 9:45 PM [facility] Glucose Negative Negative 12/27/2024 9:45 PM [facility] Bilirubin Urine Negative Negative 9:45 PM [facility] Ketone Urine Negative Negative 12/27/2024 9:45 PM [facility] Specific [place] 1.015 1.001 - 1.035 12/27/2024 9:45 PM [facility] Blood Negative Negative 12/27/2024 9:45 PM [facility] pH 7.0 5.0 - 8.0 12/27/2024 9:45 PM [facility] Protein 1+(A) Negative 12/27/2024 9:45 PM [facility] Nitrites Negative Negative 12/27/2024 9:45 PM [facility] Leukocyte Esterase 1+(A) Negative 12/27/2024 9:45 PM [facility] Urobilinogen Negative Negative 12/27/2024 9:45 PM [facility] RBC 0-2 0 - 2 /hpf 12/27/2024 9:45 PM [facility] WBC 6-9 0 - 9 /hpf 12/27/2024 9:45 PM [facility] Squamous Epithelial Cells >100(A) Not Present /hpf 12/27/2024 9:45 PM [facility] Mucus Present(A) Not Present /hpf 12/27/2024 9:45 PM [facility] Bacteria 2+(A) Negative /hpf 12/27/2024 9:45 PM [facility] Urine (Urine, Voided) Non-Blood Collection / Unknown 12/27/2024 12:11 PM EST 12/27/2024 12:11 PM [facility] - 12/27/2024 9:45 PM EST The time from collection to resulting exceeded 8 hours. If the specimen was collected in a container without preservative, some parameters may be affected. Richard Edward MD LAB URINE ORDERABLES Fin al Result Performing Organization Address [facility] Co de Phone Number [address] [address] * (ABNORMAL) Microalbumin/Creatinine Ratio, Random Urine (12/27/2024 12:11 PM EST) Creatinine, Urine 66 mg/dL 12/27/2024 9:26 PM [facility] Microalbumin, Urine 6.3(H) <2.0 mg/dL 12/27/2024 9:26 PM [facility] MALB/CRE 95.5(H) <30.0 mg/g Cre 12/27/2024 9:26 PM [facility] Urine (Urine, Voided) Non-Blood Collection / Unknown 12/27/2024 12:11 PM EST 12/27/2024 12:11 PM EST [facility] - 12/27/2024 9:26 PM EST The reference interval(s) are unavailable for this specimen type. Comparison of this result with other laboratory results, such as the concentration in the blood, serum, or plasma, is recommended. The test result should be integrated into the clinical context for interpretation. Richard Edward MD LAB URINE ORDERABLES Fin al Result Performing Organization Address [facility] [[email or web address]] de Phone Number [address] [address] * (ABNORMAL) Renal Panel (12/27/2024 11:47 AM EST) Sodium 140 136 - 145 mmol/L 12/27/2024 9:48 PM [facility] Potassium 2.6(LL) 3.4 - 5.1 mmol/L 12/27/2024 9:48 PM [facility] Chloride 106 98 - 107 mmol/L 12/27/2024 9:48 PM [facility] CO2 18(L) 20 - 31 mmol/L 12/27/2024 9:48 PM [facility] Anion Gap 16 3 - 17 mmol/L 12/27/2024 9:48 PM [facility] BUN 35(H) 6 - 23 mg/dL 12/27/2024 9:48 PM [facility] Creatinine 2.20(H) 0.50 - 1.00 mg/dL 12/27/2024 9:48 PM [facility] eGFR 23(L) >59 mL/min/1.7 3m2 12/27/2024 9:48 PM [facility] Comment:Estimated glomerular filtration rate calculated using the CKD-EPI refit equation. Glucose 199(H) 70 - 99 mg/dL 12/27/2024 9:48 PM [facility] Calcium 9.3 8.5 - 10.5 mg/dL 12/27/2024 9:48 PM [facility] Phosphorus 2.9 2.5 - 4.5 mg/dL 12/27/2024 9:48 PM [facility] Albumin 4.0 3.5 - 5.2 g/dL 12/27/2024 9:48 PM [facility] Blood (Blood) Venipuncture / Unknown 12/27/2024 11:47 AM EST 12/27/2024 11:47 AM EST us Richard Edward MD LAB BLOOD BKR ORDERABLES Final Result Performing Organization Address City/[facility]/ZIP Co de Phone Number [address] [address] * Thyroid Stimulating Hormone (TSH), with Reflex (12/27/2024 11:47 AM EST) Only the most recent of3 resultswithin the time period is included. TSH 1.93 0.40 - 5.90 uIU/mL 12/27/2024 9:20 PM [facility] Blood (Blood) Venipuncture / Unknown 12/27/2024 11:47 AM EST 12/27/2024 11:47 AM EST us Portia Clifford MD LAB BLOOD BKR ORDERABL ES Final Result Performing Organization Address City/[facility]/ZIP Co de Phone Number [address] [address] * Iron and Total Iron Binding Capacity (Iron/TIBC) (12/27/2024 11:47 AM EST) Pathologist [facility] Iron 69 28 - 170 ug/dL 12/27/2024 9:20 PM [facility] Total Iron-Binding Capacity (TIBC) 304 220 - 460 ug/dL 12/27/2024 9:20 PM [facility] Transferrin Saturation 23 14 - 50 % 12/27/2024 9:20 PM [facility] Blood (Blood) Venipuncture / Unknown 12/27/2024 11:47 AM EST 12/27/2024 11:47 AM EST us Richard Edward MD LAB BLOOD BKR ORDERABLES Final Result [address] [address] * (ABNORMAL) CBC (12/27/2024 11:47 AM EST) Only the most recent of2 resultswithin the time period is included. Pathologist [facility] WBC 16.09(H) 4.00 - 11.00 K/uL 12/27/2024 8:41 PM [facility] RBC 4.57 4.00 - 5.20 M/uL 12/27/2024 8:41 PM [facility] Hemoglobin 12.8 12.0 - 16.0 g/dL 12/27/2024 8:41 PM [facility] Hematocrit 39.9 36.0 - 46.0 % 12/27/2024 8:41 PM [facility] MCV 87.3 80.0 - 100.0 fL 12/27/2024 8:41 PM [facility] MCH 28.0 27.0 - 31.0 pg 12/27/2024 8:41 PM [facility] MCHC 32.1 32.0 - 36.0 g/dL 12/27/2024 8:41 PM [facility] PLT 235 150 - 450 K/uL 12/27/2024 8:41 PM [facility] MPV 10.7 8.4 - 12.0 fL 12/27/2024 8:41 PM [facility] RDW-CV 19.4(H) 11.5 - 14.5 % 12/27/2024 8:41 PM [facility] Absolute NRBC 0.00 <=0.00 K cells/uL 12/27/2024 8:41 PM [facility] NRBC 0.0 <=0.0 /100 WBCs 12/27/2024 8:41 PM [facility] Blood (Blood) Venipuncture / Unknown 12/27/2024 11:47 AM EST 12/27/2024 11:47 AM EST Richard Edward MD LAB BLOOD BKR ORDERABLES Final Result Performing Organization Address City/[facility]/ZIP Co de Phone Number [address] [address] * Parathyroid Hormone (PTH) (12/27/2024 11:47 AM EST) Parathyroid Hormone (PTH) 45 15 - 65 pg/mL 12/27/2024 9:11 PM [facility] Blood (Blood) Venipuncture / Unknown 12/27/2024 11:47 AM EST 12/27/2024 11:47 AM EST Richard Edward MD LAB BLOOD BKR ORDERABLES Final Result [address] [address] * (ABNORMAL) Hemoglobin A1c (12/27/2024 11:47 AM EST) Hemoglobin A1c 6.8(H) 4.3 - 5.6 % 12/27/2024 9:16 PM [facility] Calculated Mean Blood Glucose 148 mg/dL 12/27/2024 9:16 PM [facility] Comment:There is no establis hed normal range for the Estimated Average Glucose (EAG). However, a HbA1c of 5.6% (upper limit of normal) represents an EAG of 114 mg/dL. The diagnostic HbA1c level for diabetes is greater than or equal to 6.5%, which represents an EAG greater than or equal to 140 mg/dL. Blood (Blood) Venipuncture / Unknown 12/27/2024 11:47 AM EST 12/27/2024 11:47 AM EST Portia Clifford MD LAB BLOOD BKR ORDERABL ES Final Result Performing Organization Address [facility] Co de Phone Number [address] [address] * Ferritin (12/27/2024 11:47 AM EST) Only the most recent of2 resultswithin the time period is included. Ferritin 52 30 - 150 ug/L 12/27/2024 9:20 PM EST [facility] Comment:The lower limit of t he reference range has been increased to 30 ug/L for all adults to reflect a physiologically sufficient level. See Document Link for additional information. Blood (Blood) Venipuncture / Unknown 12/27/2024 11:47 AM EST 12/27/2024 11:47 AM EST Richard Edward MD LAB BLOOD BKR ORDERABLES Final Result Performing Organization Address [facility] [[email or web address]] de Phone Number [address] [address] * Urinalysis w/reflex Urine Culture (11/19/2024 4:30 AM EDT) Only the most recent of2 resultswithin the time period is included. COLOR Yellow Yellow [facility] CLARITY HAZY [facility] GLUCOSE Negative Negative [facility] BILI Negative Negative [facility] KETONES Negative Negative [facility] SPECIFIC GRAVITY 1.010 1.005 - 1.030 [facility] BLOOD Negative Negative [facility] PH 6.5 5.0 - 8.0 [facility] Protein-UA Negative Negative [facility] NITRITE Negative Negative [facility] Leukocyte esterase, ur Negative Negative [facility] Urine (Urine) 11/19/2024 4:3 0 AM EDT 11/19/2024 11:40 AM EDT us Steevn Matarodrigue MARINE DESIGNER LAB URINE ORDERABLES Lynsey menjivar Result [address] [address] * (ABNORMAL) CBC and differential (11/17/2024 2:34 PM EDT) Only the most recent of2 resultswithin the time period is included. WBC 15.82(H) 4.00 - 11.00 K/uL [facility] RBC 4.94 4.00 - 5.20 M/uL [facility] HGB 13.6 12.0 - 16.0 g/dL [facility] HCT 43.5 36.0 - 46.0 % [facility] PLT 372 150 - 450 K/uL [facility] MCV 88.1 80.0 - 100.0 fL [facility] MCH 27.5 27.0 - 31.0 pg [facility] MCHC 31.3(L) 32.0 - 36.0 g/dL [facility] RDW 16.5(H) 11.5 - 14.5 % [facility] MPV 10.7 8.4 - 12.0 fL [facility] NRBC 0.00 0.00 /100 WBCs [facility] ABSOLUTE NRBC 0.00 0.00 K/uL [facility] DIFF METHOD Auto [facility] NEUTS 70.9 48.0 - 76.0 % [facility] LYMPHS 20.5 18.0 - 41.0 % [facility] MONOS 5.8 4.0 - 11.0 % [facility] EOS 1.6 0.0 - 5.0 % [facility] BASOS 0.4 0.0 - 1.5 % [facility] Granulocytes, immature (%) 0.8 0.0 - 0.9 % [facility] ABSOLUTE NEUTS 11.22(H) 1.92 - 7.60 K/uL [facility] ABSOLUTE LYMPHS 3.25 0.72 - 4.10 K/uL [facility] ABSOLUTE MONOS 0.92 0.16 - 1.10 K/uL [facility] ABSOLUTE EOS 0.25 0.00 - 0.50 K/uL [facility] ABSOLUTE BASOS 0.06 0.00 - 0.15 K/uL [facility] Granulocytes, immature 0.12(H) 0.00 - 0.09 K/uL [facility] Blood 11/17/2024 2:34 PM EDT 11/17/2024 6:49 PM EDT [facility] LAB BLOOD BKR ORDERABLES Final Result Performing Organization Address [facility]/ZIP Co de Phone Number [address] [address] * Free T4 (11/17/2024 2:34 PM EDT) FREE T4 1.1 0.9 - 1.7 ng/dL [facility] 11/17/2024 2:34 PM EDT 11/17/2024 6:[address] [facility] LAB BLOOD BKR ORDERABLES Final Result Performing Organization Address City/[facility]/ZIP Co de Phone Number [address] [address] * Magnesium (11/17/2024 2:34 PM EDT) Only the most recent of3 resultswithin the time period is included. MAGNESIUM 2.5 1.6 - 2.6 mg/dL [facility] Blood 11/17/2024 2:34 PM EDT 11/17/2024 6:49 PM EDT [facility] LAB BLOOD BKR ORDERABLES Final Result Performing Organization Address City/[facility]/ZIP Co de Phone Number [address] [place] [address] * (ABNORMAL) Basic metabolic panel (11/17/2024 2:34 PM EDT) Only the most recent of2 resultswithin the time period is included. SODIUM 139 133 - 146 mmol/L [facility] CHLORIDE 101 96 - 108 mmol/L [facility] POTASSIUM 3.0(L) 3.3 - 5.1 mmol/L [facility] CO2 22 21 - 35 mmol/L [facility] BUN 34(H) 6 - 19 mg/dL [facility] CREATININE 2.50(H) 0.5 - 1.5 mg/dL [facility] GLUCOSE 111(H) 70 - 99 mg/dL [facility] CALCIUM 10.3 8.4 - 10.3 mg/dL [facility] EGFR 19(L) >59 mL/min/1.7 3m2 [facility] Comment:Estimated glomerular filtration rate calculated using the CKD-EPI refit equation. ANION GAP 19 10 - 20 mmol/L [facility] Blood 11/17/2024 2:34 PM EDT 11/17/2024 6:49 PM EDT Steven Jones MARINE DESIGNER LAB BLOOD BKR ORDERABLES Final Result [address] [address] * (ABNORMAL) Comprehensive metabolic panel (11/03/2024 11:45 AM EDT) Only the most recent of2 resultswithin the time period is included. SODIUM 140 133 - 146 mmol/L [facility] POTASSIUM 3.5 3.3 - 5.1 mmol/L [facility] CHLORIDE 102 96 - 108 mmol/L [facility] CO2 23 21 - 35 mmol/L [facility] BUN 36(H) 6 - 19 mg/dL [facility] CREATININE 2.70(H) 0.5 - 1.5 mg/dL [facility] GLUCOSE 131(H) 70 - 99 mg/dL [facility] ALBUMIN 4.0 3.9 - 4.8 g/dL [facility] TOTAL PROTEIN 7.8 6.5 - 8.0 g/dL [facility] CALCIUM 9.7 8.4 - 10.3 mg/dL [facility] ALKALINE PHOSPHATASE 91 39 - 117 U/L [facility] TOTAL BILIRUBIN 0.3 0.0 - 1.2 mg/dL [facility] AST 15 0 - 37 U/L [facility] ALT <5 0 - 40 U/L [facility] GLOBULIN 3.8 1 - 4.8 g/dL [facility] EGFR 18(L) >59 mL/min/1.7 3m2 [facility] Comment:Estimated glomerular filtration rate calculated using the CKD-EPI refit equation. ANION GAP 19 10 - 20 mmol/L [facility] Blood 11/03/2024 11:4 5 AM EDT 11/03/2024 11:52 AM EDT Steven Jones [facility] LAB BLOOD BKR ORDERABLES Final Result [facility] [address] [place] [address] * POCT COVID-19 RT-PCR/Influenza A & B/RSV (Cepheid) (11/03/2024 11:26 AM EDT) [facility] RSV PCR Negative Negative [facility] SARS-CoV-2 (COVID-19) Negative Negative [facility] POC Influenza A PCR Negative Negative [facility] POC Influenza B PCR Negative Negative [facility] 11/03/2024 11:2 6 AM EDT 11/03/2024 12:11 PM EDT Steven Jones [facility] POCT ENTER/EDIT ORDER EFREN Final Result [address] [address], [place] [phone] * (ABNORMAL) 25-OH vitamin D (10/26/2024 12:06 PM EDT) 25 OH VIT D (TOTAL) 17(L) 30 - 60 ng/mL [facility] Blood 10/26/2024 12:0 6 PM EDT 10/26/2024 12:08 PM EDT Result [facility] LAB BLOOD BKR ORDERABLES Final Result Performing Organization Address [facility] [[email or web address]] de Phone Number [address] [address] * Vitamin B12 (10/26/2024 12:06 PM EDT) [facility] VITAMIN B12 905 232 - 1,245 pg/mL [facility] Blood 10/26/2024 12:0 6 PM EDT 10/26/2024 12:08 PM EDT Result [facility] LAB BLOOD BKR ORDERABLES Final Result Performing Organization Address [facility] de Phone Number [address] [address] * ECG 12-LEAD (10/26/2024 10:51 AM EDT) Narrative EXTERNAL NON-INTERFACED REF LAB - 10/26/2024 10:51 AM EDT Type of EKG: Standard. Global (16312). Result [facility] ECG ORDERABLES Final Res ult Performing Organization Address [facility] [[email or web address]] de Phone Number EXTERNAL NON-INTERFACED REF LAB * HM DIABETES EYE EXAM FOR RESULT ENTRY ONLY (08/12/2023 2:22 PM EDT) Historical Provider HEALTH MAINTENANCE Final Result * OUTSIDE BONE DENSITY SCREENING (01/16/2012) [facility] BONE DENSITY SCREENING - EXTERNAL normal Historical Provider HEALTH MAINTENANCE Edited Result - Final from Last 3 Months or Most Recently Relevant to Health Maintenance Insurance [facility]ULL [facility] MEDIC[facility] PART A & B [employer] PPO MEDICARE REPLACEMENT [facility] FULL [facility] MEDICARE PART A & B [facility] RE[facility] PART A & B [employer] PPO MEDICARE REPLACEMENT [facility] B [id number] [place] [address] MEDICARE REPLACEMENT MEDICARE PART A & B [facility] MEDICARE REPLACEMENT [facility] FULL MEDICARE PART A & B [employer] O MEDICARE REPLACEMENT [facility] [place] [address] [place] [address] MEDICARE PART A & B [employer] PPO MEDICARE REPLACEMENT [facility] NET FULL [facility] Advance Directives For more information, please contact: [phone] (9AM - 5PM [facility], Friday-Friday) Documents on File Type Date Recorded Patient Unionmelt Operator Expl anation Healthcare Proxy 11/17/2024 Health Care Proxy 11/17/2024 Care Teams Psychology Physician Relationship Specialty Start Date End Date Steven Jones CNP [address] [place] [address], [address] [place] [address] PCP - General Adult Health 07/21/23 Maya Lundberg [email or web address] 05/17/22 Tatiana Graves MD [address] [place] [address] Pulmonary Disease 08/02/22 Ventura Merritt DPM [address] [place] [address] Podiatry 07/21/23 Evi Rock MD, MPH [address] [place] [address], [address] [place] [address] [email or web address] Rheumatology 07/21/23 Enedina Heller MD [address] [place] [address] [address] [place] [address] Thoracic Surgery 07/21/23 Magdeil Acosta MD [address] [place] [address], [address] [place] [address] Internal Medicine 07/21/23 Jimmie Renee MD [address] [place] [address] [email or web address] Pulmonary Disease 09/08/23 Additional Source Comments The information contained in this document represents components of the legal health record. It is not the complete legal health record.[facility]
--- OUTSIDE RECORDS SUMMARY | 2025-01-21 19:40 | XMS_ITS | Encounter Summary ---
Author Organization [facility] Address [address] [address] Phone Care Team Providers Care Geriatric Care Manager Name Role Phone Steven Jones LESLI Primary Care Provider +1- [phone] Encounter Details Date Type Department Care Team (Late st Contact Info) Description 11/19/2024 Documentation Only [facility] [address] [place] [address] Larisa Sanders[place], [place] [address] [place] [address] Social History Tobacco Use Types Packs/Day Years Used Date Smoking Tobacco: Never Assessed Comments Unknown Sex and Gender Information Value Date Recorded Sex Assigned at Not on file Legal Sex Female 1:00 PM EDT Gender Identity Not on file Sexual Orientation Not on file documented as of this encounter Functional Status * BP Answer Date of Assessment Author 100/68 11/19/2024 2:05 PM EDT Richard Valiente MD * BP Answer Date of Assessment Author 100/68 11/19/2024 2:05 PM EDT Richard Valiente MD documented as of this encounter Plan of Treatment Upcoming Encounters Date Type Department Care Team (Late st Contact Info) Description 02/14/2025 1:15 PM EST Office Visit [facility] [address] [place] [address] Richard Edward MD [address] [place] [address] [place] [address] documented as of this encounter Visit Diagnoses Not on filedocumented in this encounter Care Teams Geriatric Care Manager Relationship Specialty Start Date End Date Steven Jones NP [address] [place] [address], [address] [place] [address] PCP - General Nurse Practitioner 11/15/24 documented as of this encounter
--- OUTSIDE RECORDS SUMMARY | 2025-01-21 19:40 | XMS_ITS | Encounter Summary ---
Author Organization [facility] Address [address] [place] [address] Care Team Providers Care Reading Interventionist Name Role Phone Steven Jones NP Primary Care Provider +1- [phone] Encounter Details Date Type Department Care Team (Late Contact Info) Description 09/21/2024 Lab Requisition [facility] [address] [facility] [place] [address] Fartun Ho MD [address] [place], [place] [id number] Essential (primary) hypertension Social History Tobacco Use [...] 11:00 AM EST Office Visit Pulmonology - [place] [address] [facility] [address] [place] [address] Tatiana Graves MD [address] [place] [address] 04/27/2025 11:15 AM EDT Office Visit [facility] Hematology Oncology [address] [place] [address] Maya Lundberg MD [address] [place] [address] documented as of this encounter Procedures Procedure Name Priority Date/Time Associated Diagnosis Comments COMPLETE BLOOD COUNT Routine 09/22/2024 5:13 AM EDT Essential (primary) hypertension BASIC METABOLIC PANEL Routine 09/22/2024 5:13 AM EDT Essential (primary) hypertension documented in this encounter Results * (ABNORMAL) Complete blood count (09/22/2024 5:13 AM EDT) WBC 10.6 4.8 - 10.8 K/mcL LAB HEMETOLOGY METHOD 09/22/2024 9:55 AM [facility] RBC 3.90 3.80 - 4.80 M/mcL LAB HEMETOLOGY METHOD 09/22/2024 9:55 AM [facility] Hemoglobin 11.4(L) 11.5 - 16.0 g/dL LAB HEMETOLOGY METHOD 09/22/2024 9:55 AM [facility] Hematocrit 37.0 35.0 - 47.0 % LAB HEMETOLOGY METHOD 09/22/2024 9:55 AM [facility] MCV 94.1 79.0 - 98.0 FL LAB HEMETOLOGY METHOD 09/22/2024 9:55 AM [facility] MCH 29.0 27.0 - 32.0 pcg LAB HEMETOLOGY METHOD 09/22/2024 9:55 AM [facility] MCHC 30.8(L) 32.0 - 37.0 g/dL LAB HEMETOLOGY METHOD 09/22/2024 9:55 AM EDT [facility] RDW 15.0 11.0 - 15.0 % LAB HEMETOLOGY METHOD 09/22/2024 9:55 AM EDT [facility] Platelets 199 130 - 400 K/mcL LAB HEMETOLOGY METHOD 09/22/2024 9:55 AM EDT [facility] MPV 9.7 7.0 - 11.0 FL LAB HEMETOLOGY METHOD 09/22/2024 9:55 AM EDT [facility] NRBC 0.0 <1.0 % LAB HEMETOLOGY METHOD 09/22/2024 9:55 AM EDT [facility] NRBC Absolute 0.00 <0.10 K/mcL LAB HEMETOLOGY METHOD 09/22/2024 9:55 AM EDT [facility] Blood Venous blood specimen / Unknown Venipuncture / Unknown 09/22/2024 5:13 AM EDT 09/22/2024 9:43 AM EDT us Fartun Ho MD LAB BLOOD ORDERABLES Final Resul t [facility] [address] [place] [address], * (ABNORMAL) Basic metabolic panel (09/22/2024 5:13 AM EDT) Sodium 139 133 - 145 mmol/L LAB CHEMISTRY METHOD 09/22/2024 10:50 AM EDT [facility] Potassium 3.5 3.5 - 5.5 mmol/L LAB CHEMISTRY METHOD 09/22/2024 10:50 AM EDT [facility] Chloride 98 96 - 110 mmol/L LAB CHEMISTRY METHOD 09/22/2024 10:50 AM EDT [facility] CO2 36(H) 21 - 32 mmol/L LAB CHEMISTRY METHOD 09/22/2024 10:50 AM [facility] Anion Gap 5 3 - 11 LAB CHEMISTRY METHOD 09/22/2024 10:50 AM [facility] Glucose 99 70 - 100 mg/dL LAB CHEMISTRY METHOD 09/22/2024 10:50 AM [facility] BUN 15 5 - 25 mg/dL LAB CHEMISTRY METHOD 09/22/2024 10:50 AM [facility] Creatinine 1.18(H) 0.50 - 1.10 mg/dL LAB CHEMISTRY METHOD 09/22/2024 10:50 AM [facility] eGFR 48(L) >=60 mL/min/1. 73m2 LAB CHEMISTRY METHOD 09/22/2024 10:50 AM [facility] Comment:Calculation based on the Chronic Kidney Disease Epidemiology Collaboration (CKD-EPI) equation refit without adjustment for race. BUN/Creatinine Ratio 12.7 LAB CHEMISTRY METHOD 09/22/2024 10:50 AM [facility] Calcium 9.2 8.5 - 10.5 mg/dL LAB CHEMISTRY METHOD 09/22/2024 10:50 AM [facility] Blood Venous blood specimen / Unknown Venipuncture / Unknown 09/22/2024 5:13 AM EDT 09/22/2024 9:43 AM EDT us Fartun Ho MD LAB BLOOD ORDERABLES Final Resul t [facility] [address] [place] [address], documented in this encounter Visit Diagnoses Diagnosis Essential (primary) hypertension Unspecified essential hypertension documented in this encounter Care Teams Reading Interventionist Relationship Specialty Start Date End Date Steven Jones NP [address] [place], [place] PCP - General 09/11/23 documented as of this encounter
--- OUTSIDE RECORDS SUMMARY | 2025-01-21 19:41 | XMS_ITS | Clinical Summary ---
Author Organization [facility] Prior to 07/17/[address] [place] [address] Care Team Providers Care Medical Receptionist Name Role Phone Steven Jones APRN Primary Care Provider + Allergies Active Allergy Reactions Criticality Noted Date Comments Lisinopril 10/17/2020 Sulfa Antibiotics 10/17/2020 Medications Medication Sig Dispensed Refills Start Date End Date Status traMADol (ULTRAM) 50 MG tablet Take 50 mg by mouth every 6 (six) hours as needed for pain. 30 tablet 0 10/17/2020 Active amLODIPine (NORVASC) tablet 2.5 mg Take 1 tablet (2.5 mg total) by mouth daily. 0 Active allopurinol (ZYLOPRIM) 300 MG tablet Take 1 tablet (300 mg total) by mouth daily. 0 Active atorvastatin (LIPITOR) tablet 80 mg Take 1 tablet (80 mg total) by mouth daily. 0 Active vitamin B-12 (CYANOCOBALAMIN) 100 MCG tablet Take 0.5 tablets (50 mcg total) by mouth daily. 0 Active DULoxetine (CYMBALTA) DR capsule 30 mg Take 1 capsule (30 mg total) by mouth every night at bedtime. 0 Active gabapentin (NEURONTIN) 300 MG capsule Take by mouth 2 (two) times a day. 300mg in AM and 600mg in PM 0 Active hydroCHLOROthiazide (HYDRODIURIL) tablet 25 mg Take 1 tablet (25 mg total) by mouth daily. 0 Active omeprazole (PriLOSEC) 20 MG capsule Take 1 capsule (20 mg total) by mouth daily. 0 Active Fluticasone-Umeclidin -Vilant (Trelegy Ellipta) 100-62.5-25 MCG/INH AEPB Inhale into the lungs every night at bedtime. 0 Active dulaglutide (Trulicity) 3 MG/0.5ML subcutaneous pen-injector Inject under the skin once a week. 0 Active Insulin Aspart (NOVOLOG IJ) Inject as directed 3 (three) times a day with meals. 09/05/2023 Pt using 's insulin, as per sliding scale; pt unable to get Trulicity and has not seen new PCP yet 0 Active Active Problems Problem Noted Date Diagnosed Date Lung nodule 08/15/2023 Social History Tobacco Use Types Packs/Day Years Used Date Smoking Tobacco: Former Smokeless Tobacco: Never Tobacco Cessation:Counseling Given: Not Answered Alcohol Use Standard Drinks/Week Comments Not Currently 0 (1 standard drink = 0.6 oz pur e alcohol) Sex and Gender Information Value Date Recorded Sex Assigned at Female 09/09/2023 10:43 AM EDT Gender Identity Not on file Sexual Orientation Not on file Job Start Date Occupation Industry Not on file Not on file Not on file Last Filed Vital Signs Vital Sign Reading Time Taken Comments Blood Pressure 134/70 09/11/2023 4:30 PM EDT Pulse 71 09/11/2023 4:30 PM EDT Temperature 36.2 C (97.2 F) 09/11/2023 3:49 PM EDT Respiratory Rate 13 09/11/2023 4:30 PM EDT Oxygen Saturation 93% 09/11/2023 4:30 PM EDT Inhaled Oxygen Concentration - - Weight 98.9 kg (218 lb) 09/05/2023 1:58 PM EDT Height 170.2 cm (5' 7 ) 09/05/2023 1:58 PM EDT Body Mass Index 34.14 09/05/2023 1:58 PM EDT Plan of Treatment Health Maintenance Due Date Last Done Comments Hepatitis C Screening 1945 Depression Screening 1959 BMI Counseling 12/27/1965 Preventative Health Evaluation 12/27/1965 Fall Risk Assessment 12/27/2012 Osteoporosis Screening (DEXA Scan) 12/27/2012 RSV Adult > 60+ Yrs or (1 - 1-dose 75+ series) 12/27/2022 COVID-19 Vaccine ( season) 2024 04/29/2020, 04/06/2020 Influenza Vaccine (#1) 2024 3, 11/09/2019, 12/09/2018, Additional history exists DTap / Tdap / Td (2 - Td or Tdap) 07/09/2028 07/09/2018 Hepatitis B Vaccines Completed 05/26/2009, 01/26/2009, 12/13/2008 Shingrix-Zoster Vaccine Completed 11/08/19 21, 06/16/2020, 11/09/2019 Pneumococcal Vaccine Completed 09/27/2021, 01/14/2017, 09/05/2015 RSV Ped < 20 months Aged Out No longe r eligible based on patient's age to complete this topic Advance Directives For more information, please contact: [phone] Latest Code Status on File Code Status Date Activated Date Inactivated Comments Full Code 09/11/2023 3:51 PM 09/11/2023 11:16 PM This code status was ascertained in the following way: discussion with patient . Care Teams Medical Receptionist Relationship Specialty Start Date End Date Steven Jones APRN [address] [place] [address] PCP - General Adult Medicine 09/11/23
--- OUTSIDE RECORDS SUMMARY | 2025-01-21 19:41 | XMS_ITS | Encounter Summary ---
Author Organization [facility] Address [address] [place] [address] Phone Care Team Providers Care Electromechanical Technician Name Role Phone Lashon Trammell TESTER ELECTRONIC SCALE Primary Care Provider Maya Lundberg MD Unavailable Tatiana Graves MD Unavailable [phone] Unknown, Unknown MD Primary Care Provider Steven Hastings CNP Primary Care Provider [phone] [place] Merritt DPM Unavailable [phone] Evi Rock MD, MPH Unavailable Enedina Heller MD Unavailable [phone] Magdiel Acosta MD Unavailable Jimmie Renee MD Unavailable [email or web address] Gia Kidd Unavailable [email or web address] Encounter Details Date Type Department Care Team (Late st Contact Info) Description 01/14/2018 Transcribe Orders [facility] Specimen Processing [address] [place] [address] Lashon Trammell, TESTER ELECTRONIC SCALE [address] [place] [address] Cough (Primary Dx) Social History Tobacco Use Types Packs/Day Years Used Date Smoking Tobacco: Former Cigarettes 1 57 Smokeless Tobacco: Never Alcohol Use Standard Drinks/Week Comments No 0 (1 standard drink = 0.6 oz pur e alcohol) Comments Unknown Sex and Gender Information Value Date Recorded Sex Assigned at Not on file Legal Sex Female 10:05 PM EDT Gender Identity Not on file Sexual Orientation Not on file documented as of this encounter Plan of Treatment Upcoming Encounters Date Type Department Care Team (Late st Contact Info) Description 02/28/2025 9:20 AM EST Office Visit [facility] Endocrinology [address] [phone] Jayne Kelley PA-C [address] [place] [address] 06/06/2025 11:00 AM EDT Office Visit [facility] Endocrinology [address] [phone] Jayne Kelley PA-C [address] [place] [address] 06/14/2025 11:30 AM EDT Office Visit [facility] [address] [place] [address] Steven Jones CNP [address] [facility] [place] [address] 09/05/2025 11:00 AM EDT Office Visit [facility] Endocrinology [address] [phone] Portia Clifford MD [address] [place] [address] 12/19/2025 11:30 AM EST Office Visit [address] [address] Steven Jones CNP [address] [facility] [place] [address] [email or web address] documented as of this encounter Results * Rapid influenza A and B (01/14/2018 8:05 PM EST) Influenza A Ag Negative Negative [facility] Influenza B Ag Negative Negative [facility] Other (Nasal) 01/14/2018 8:0 5 PM EST 01/14/2018 8:06 PM EST us Lashon Trammell NP MICROBIOLOGY - GENERAL ORDERABL ES Final Result [facility] [address] [place] [address] documented in this encounter Visit Diagnoses Diagnosis Cough- Primary documented in this encounter Additional Health Concerns Infection Onset Date Last Indicated Resolved Time CoV-Presumed 10/08/2021 10/08/2021 10/29/2021 1:21 AM EDT Assessment Noted Time PHQ-2 Depression Total Score: 0 10/15/19 18 10:19 AM EDT documented as of this encounter Care Teams Electromechanical Technician Relationship Specialty Start Date End Date Lashon Trammell, TESTER ELECTRONIC SCALE PCP - General 01/07/17 05/18/23 Unknown, Unknown, PCP - General 05/19/23 07/20/23 Steven Jones CNP [address] [facility] [place] [address] PCP - General Adult Health 07/21/23 Maya Lundberg MD [email or web address] 05/17/22 Tatiana Graves MD [address] [place] [address] Pulmonary Disease 08/02/22 [place] Merritt DPM [address] [place] [address] Podiatry 07/21/23 Evi Rock MD, MPH [address] [place] [address], [address] [place] [address] Rheumatology 07/21/23 Enedina Heller MD [address] [place] [address] Thoracic Surgery 07/21/23 Magdiel Acosta MD [address] [place] [address], [address] [place] [address] Internal Medicine 07/21/23 Jimmie Renee MD [address] [place] [address] [email or web address] Pulmonary Disease 09/08/23 Gia Kidd [address] [place] [address] [email or web address] Community Electronic Health Records Specialist 12/02/23 12/02/23 documented as of this encounter Additional Source Comments The information contained in this document represents components of the legal health record. It is not the complete legal health record.[facility]
--- OUTSIDE RECORDS SUMMARY | 2025-01-21 19:41 | XMS_ITS | Encounter Summary ---
Author Organization [facility] Prior to 07/17/[address] [place] [address] Care Team Providers Care Network Strategist Name Role Phone Steven Jones APRN Primary Care Provider + Encounter Details Date Type Department Care Team Description 10/18/2020 Nurse Only [facility] Oncology Services [address] [place] [address] Filemon Robison RN Social History Tobacco Use Types Packs/Day Years Used Date Smoking Tobacco: Former Smokeless Tobacco: Never Alcohol Use Standard Drinks/Week Comments Never 0 (1 standard drink = 0.6 oz pur e alcohol) Sex and Gender Information Value Date Recorded Sex Assigned at Female 09/09/2023 10:43 AM EDT Gender Identity Not on file Sexual Orientation Not on file Job Start Date Occupation Industry Not on file Not on file Not on file COVID-19 Exposure Response Date Recorded In the last month, have you been in contact with someone who was confirmed or suspected to have Coronavirus / COVID-19? No / Unsure 10/17/2020 2:52 PM EDT documented as of this encounter Progress Notes * Filemon Robison RN - 10/18/2020 9:27 AM EDT Met with patient and her yesterday, went over the process for obtaining oral chemotherapy. Side effects where also discussed. Possibility for co-pay assistance was also reviewed with them. Script sent to [facility] today. documented in this encounter Plan of Treatment Not on file documented as of this encounter Visit Diagnoses Not on filedocumented in this encounter Care Teams Network Strategist Relationship Specialty Start Date End Date Steven Jones APRN [address] [place] [address] PCP - General Adult Medicine 09/11/23 documented as of this encounter
--- OUTSIDE RECORDS SUMMARY | 2025-01-21 19:41 | XMS_ITS | Data Portability ---
Author Organization [place] [facility], [facility] Address [address] [place] [phone] Care Team Providers Care Bike Mechanic Name Role Phone ADOLFOJames JOHNATHON Primary Care Provider [phone] Assessment Encounter Date Assessment Date Assessment LastModified by Organization Details LastModified Time 12/07/2021 12/07/2021 Time On Scene with Patient: 00:44:08 DDX: CHF, pneumonia, flu, COVID, viral illness, COPD exacerbation. Pt with sudden onset of viral symptoms. Demonstrates tolerating ambulation without hypoxemia or increased work of breathing, COVID neg, flu neg, Will obtain chest xray to assess for pneumonia or infiltrative disease. Pt does not demonstrate red flags to suggest acute respiratory failur but this was reviewed with patient. Will initiate prednisone for COPD exacerbation as a result of viral infection. ED precautions reviewed with patient with verbalized understanding. Pt was ambulating into kitchen to eat chicken pot pie upon completion of DH visit. Resp easy, speaking complete sentences without difficulty. [email or web address] Not available 12/07/2021 18:29:47 Plan of Treatment Reminders Order Date Submit Date Provider Last Modified By Organization Details Last Modified Time Details Appointments None recorded. Lab rapid SARS CoV 2 Ag, QL IA, respirato ry specimen 2021 022 [email or web address], [address] [place] [address], [phone], 17:30:38 rapid flu (A+B) 2021 022 [email or web address], [address] [place], [address], 17:30:43 Referral None recorded. Procedures None recorded. Surgeries None recorded. Imaging XR, chest, 2 view - cough, chills, SOB, negative COVID negative flu x 24 hours [facility] [address] [facility], [place], [address], 16:23:56 Medication Orders prednison e 20 mg tablet 2021 [facility], [address] [place] [address], [address], 17:30:55 Patient TargetsNo targets recorded. Patient InstructionsNo instructions recorded. Reason for Referral None Reported. Results Created Date Observation Date Name Description Value Unit Range Abnormal Flag Note LastModifiedBy Organization Detail LastModifiedTime 12/08/1912/07/2021 rapid flu (A+B) Flu A (ref: neg) negati ve Not Available [facility] [address] [place] [address], [phone], 12/07/2021 17:27:41 12/08/1912/07/2021 rapid flu (A+B) Flu B (ref: neg) negati ve Not Available [facility] [address] [place], [address], 12/07/2021 17:27:41 12/08/19 22 12/07/2021 rapid flu (A+B) Control Visual ized/V alid Not Available [facility] [address] [place], [address], 12/07/2021 17:27:41 12/08/19 22 12/07/2021 rapid flu (A+B) Location [facility], [facility], [address] [place] [address], [phone] Not Available [facility] [address] [place], [address], 12/07/2021 17:27:41 12/08/19 22 12/07/2021 rapid SARS CoV 2 Ag, QL IA, respi rator y speci men Covid-19 (ref: neg) negati ve Not Available [facility] [address] [place], [address], 12/07/2021 17:27:30 12/08/19 22 12/07/2021 rapid SARS CoV 2 Ag, QL IA, respi rator y speci men Control Visual ized/V alid Not Available [facility] [address] [place], [address], 12/07/2021 17:27:30 12/08/19 22 12/07/2021 rapid SARS CoV 2 Ag, QL IA, respi rator y speci men Location [facility], [address] [place] [address], [phone] Not Available [facility] [address] [place], [address], 12/07/2021 17:27:30 Result Notes None recorded. Procedures Surgical History Date Name Laterality Status Provider Name and Address Organization Details Recorded Time lobectomy of lower lobe of left lung completed HUGO NOLEN NP [address] [place], [address], [place] [facility] 12/07/2021 17:25:31 Imaging Results None recorded. Procedure Notes None recorded. Medical Equipment None Reported. Allergies Allergen ID Allergen Name Allergen Category Reaction Reaction Severity Criticality Documentation Date Start Date Code Code System Note Provider Name and Address Organization Details Recorded Time [id number] Substance with sulfonami de structure and antibacte rial mechanism of action (substanc e) medicatio n Not available Not available Not available 12/07/2021 94130 8003 SNOMED HUGO NOLEN NP [address] [place], [address], [place] [facility] 17:23:59 [id number] lisinopri l medicatio n Not available Not available Not available 12/07/2021 31953 RxNorm HUGO NOLEN NP [address] [facility] [place], [address] , [place] [facility] 17:24:44 Medications Name Sig Start Date Stop Date Status Note LastModified by Organization Details LastModified Time cap-2 k-10 pain formulation versatile Apply 1-3 grams to the affected area 3-4 times daily FEET active Not Available Not Available No t Available atorvastati n 40 mg tablet TAKE 1 TABLET BY MOUTH ONCE DAILY active Not Available Not Available No t Available metformin 500 mg tablet TAKE 1 TABLET BY MOUTH TWICE DAILY WITH MEALS active Not Available Not Available No t Available prednisone 20 mg tablet Take 2 tablets every day by oral route for 5 days. active Not Available Not Available No t Available amlodipine 2.5 mg tablet TAKE 1 TABLET BY MOUTH ONCE DAILY active Not Available Not Available No t Available tramadol 50 mg tablet TAKE 1 TABLET BY MOUTH TWICE DAILY NEEDED FOR PAIN active Not Available Not Available No t Available glimepiride 2 mg tablet TAKE 1 TABLET BY MOUTH ONCE DAILY BEFORE BREAKFAST active Not Available Not Available No t Available [employer] Ultra Test strips USE TO TEST TWO TO THREE TIMES A DAY active Not Available Not Available No t Available doxycycline monohydrate 100 mg capsule TAKE 1 CAPSULE BY MOUTH TWICE DAILY 12/07 completed Not Available Not Available Not Available gabapentin 300 mg capsule TAKE 1 CAPSULE BY MOUTH THREE TIMES DAILY active Not Available Not Available No t Available omeprazole 20 mg capsule,del ayed release TAKE 1 CAPSULE BY MOUTH ONCE DAILY active Not Available Not Available No t Available allopurinol 300 mg tablet TAKE 1 TABLET BY MOUTH ONCE DAILY active Not Available Not Available No t Available albuterol sulfate HFA 90 mcg/actuati on aerosol inhaler INHALE 2 PUFFS BY MOUTH INTO THE LUNGS EVERY 6 HOURS NEEDED FOR WHEEZING active Not Available Not Available No t Available fluticasone propionate 50 mcg/actuati on nasal spray,suspe nsion USE 1 SPRAY(S) IN EACH NOSTRIL ONCE DAILY active Not Available Not Available No t Available duloxetine 30 mg capsule,del ayed release TAKE 1 CAPSULE BY MOUTH ONCE DAILY active Not Available Not Available No t Available Xalkori 250 mg capsule active Not Available Not Available N ot Available Trulicity 1.5 mg/0.5 mL subcutaneou s pen injector INJECT 0.5 ML (1.5 MG TOTAL) UNDER THE SKIN EVERY 7 DAYS. active Not Available Not Available No t Available Trulicity 0.75 mg/0.5 mL subcutaneou s pen injector INJECT 0.5ML UNDER THE SKIN EVERY 7 DAYS active Not Available Not Available No t Available Trelegy Ellipta 100 mcg-62.5 mcg-25 mcg powder for inhalation INHALE ONE PUFF BY MOUTH ONCE DAILY AT THE SAME TIME EACH DAY active Not Available Not Available No t Available Vitals Date Recorded Heart rate Respiratory rate Oxygen saturation Body temperature Heart rate Oxygen saturation Systolic And Diastolic Provider Name and Address Organization Details Last Updated DateTime 2 86 /min 20 /min 98 % 98.3 [degF] 92 /min 97 % 142/86 mm[Hg] Not Available [facility] 2 16:51:51 Social History None recorded. Functional Status None recorded. Mental Status None recorded. Family History Nothing Reported. Medical History Condition Response Diabetes Y Coronary Artery Disease N CHF N Parkinson's Disease N Cancer Y Stroke Y Dementia N Asthma N Hypothyroidism N Depression Y COPD Y High Cholesterol Y Rheumatoid Arthritis N Pulmonary Embolism N Hypertension Y A-fib N Osteoporosis N Kidney Disease N Gynecological HistoryNo gynecological history recorded. Obstetrics History GPAL:G 0 P 0 0 0 0 Past Encounters Encounter ID Performer Location Encounter Start Date Encounter Closed Date Diagnosis/Indication Diagnosis SNOMED-CT Code Diagnosis ICD10 Code Diagnosis IMO Codes Diagnosis Note [id number] HUGO NOLEN NP [facility] [address] [place] [address] 12/07/2021 16:44:18 12/10/2021 13:34:46 Acute exacerbation of chronic obstructive pulmonary disease 275976518 J44.1 Health Concerns Section Related Observation LastModified by Organization Detai ls LastModified Time None Recorded Concern Status LastModified by Organization Details LastModified Time None Recorded Advance Directives Directive None Recorded Payers Insurance Date Sequence Insurance Name Policy Number Policy Masters Covered Member ID Masters Member ID Guarantor Name 12/10/2021 1 [employer] (MEDICARE REPLACEMENT/A DVANTAGE - PPO) [id number] Shavonne Charter [id number] Shavonne Charter 12/10/2021 2 [employer] Shavonne Charter [id number] Shavonne Charter 12/10/2021 1 [place]: [employer] Shavonne Charter [id number] Shavonne Charter 12/07/2021 2 [employer] Shavonne Charter [id number] Shavonne Charter 12/10/2021 1 [employer] (MEDICARE REPLACEMENT/A DVANTAGE - [place]PO) [id number] Shavonne Charter [id number] Shavonne Charter 12/07/2021 1 *SELF PAY* Shavonne Charter [id number] Shavonne Charter 12/10/2021 1 [employer] (MEDICARE REPLACEMENT/A DVANTAGE - PPO) [id number] Shavonne Charter [id number] Shavonne Charter 12/07/2021 1 [place]: [employer] Shavonne Charter [id number] Shavonne Charter 12/10/2021 1 [employer] (MEDICARE REPLACEMENT/A DVANTAGE - PPO) [id number] Shavonne Charter [id number] Shavonne Charter Notes Date Note Type Note Provider Name and Address Organization Details Recorded Time 12/07/2021 text/html 75 year-old female with history of COPD, obesity, lung CA on oral chemo x 1 year, DM, HLD, HTN who calls to home to evaluate her for shortness of breath. She began during the night with viral symptoms that include body aches, chills, fevers, runny nose, and a lot of coughing. Today she feels she gets winded with the coughing. She denies any chest pain, sweatiness, nausea or vomiting. She has been eating though her appetite feels less today. No urinary symptoms. HUGO NOLEN, LESLI [address], [place], [address], [place] [facility] 12/07/2021 18:29:58 OBGyn Episode No OBEpisode recorded.
== END 2025-01-21 15:47 | disposition home or self-care (01) ==
LOC: HO.LAB 15:46
PROVIDERS: Visit Provider Internal Medicine Nephrology
DX: N18.31 Chronic kidney disease, stage 3a (principal); N17.9 Acute kidney failure, unspecified
CPT/HCPCS: 36415; 80051; 82310; 82565; 83735; 84520